=== PATIENT | male | born 1930 | race Caucasian/White ===

== ENCOUNTER 2016-09-21 02:05 | Emergency (ER) | payer MEDICARE, OTHER ==
[2016-09-21 04:11] LABS: Hematocrit 43 % (42-52); Hemoglobin 14.3 g/dl (14.0-18.0); Mean Corpuscular HGB Conc 33 g/dl (31-36); Mean Corpuscular Hemoglobin 31 pg (27-31); Mean Corpuscular Volume 94 fL (80-94); Mean Platelet Volume 11 um3 (7.4-10.4); Red Blood Count 4.57 10^6/ul (4.0-5.4); Red Cell Distribution Width 13 % (10.5-15); White Blood Count 9.1 10^3/ul (3.5-10.8)
[2016-09-21] MEDS ORDERED: oxyCODONE/Acetamin 5/325 MG* TAB PO ONE (04:26)
[2016-09-21] MEDS ORDERED: Lisinopril TAB* 10 MG PO ONE (04:27)
[2016-09-21 04:31] LABS: Albumin 4.1 g/dL (3.2-5.2); BUN/Creatinine Ratio 23.7 (8-20); Calcium 9.4 mg/dL (8.6-10.3); EGFR African American 62.8 (>60); EGFR Non-African American 48.8 (>60); Globulin 2.4 g/dL (2-4); Potassium 4.6 mmol/L (3.5-5.0); Total Bilirubin 1.2 mg/dL (0.2-1.0); Total Protein 6.5 g/dL (6.4-8.9)
[2016-09-21 05:20] VITALS: BP 191/83
--- NOTE | 2016-09-21 05:46 | ED ---
Gabriel Guaman Aidan, scribed for Renuka Kulkarni MD on 09/21/16 at 0413 . Head Injury - HPI Summary HPI Summary: 85 y/o male presents to the ED with a complaint of acute, constant, moderate (7/ 10), left jaw/cheek pain and inflammation with active bleeding that resulted from him falling out of bed and onto his face just CHECKER IN. Associated symptoms include multiple chipped and loose teeth. Pt denies any JACOBSON or LOC. He took ASA today. Tetanus is UTD. Hx of HTN. - History Of Current Complaint Chief Complaint: EDFacialInjury Stated Complaint: FACE LAC Time Seen by Provider: 09/21/16 02:42 Hx Obtained From: Patient Mechanism Of Injury: Fall From Height Of: - Pt fell out of bed Onset/Duration: Started Hours Ago, Traumatic, Still Present Onset of Pain: Immediate Severity Currently: Moderate Severity Initially: Moderate Pain Intensity: 7 Pain Scale Used: 0-10 Numeric Location of Head Injury: Frontal Location: Discrete At: - left side of the jaw/mouth Character: Sharp Aggravating Factor(s): Other: - unknown Alleviating Factor(s): Other: - unknown Associated Signs And Symptoms: Swelling, Other: - jaw pain, loose and chipped teeth - Risk Factors SDH Risk Factor: Male, Recent Trauma - Allergies/Home Medications Allergies/Adverse Reactions: Allergies Allergy/AdvReac Type Severity Reaction Status Date / Time Codeine Allergy Unknown Verified 09/21/16 02:39 Reaction Details Ibuprofen Allergy Unknown Verified 09/21/16 02:39 Reaction Details Penicillins Allergy Unknown Verified 09/21/16 02:39 Reaction Details PMH/Surg Hx/FS Hx/Imm Hx Endocrine/Hematology History: Denies: Hx Anticoagulant Therapy, Hx Diabetes, Hx Thyroid Disease Cardiovascular History: Reports: Hx Hypertension Denies: Hx Pacemaker/ICD Respiratory History: Denies: Hx Asthma, Hx Chronic Obstructive Pulmonary Disease (COPD) History: Denies: Hx Renal Disease Neurological History: Denies: Hx Dementia, Hx Seizures Psychiatric History: Denies: Hx Substance Abuse - Surgical History Surgery Procedure, Year, and Place: MESH PLACED OVER ABD/APPY Infectious Disease History: No Infectious Disease History: Reports: Hx Hepatitis Denies: Hx Human Immunodeficiency Virus (HIV), Traveled Outside the [place] in Last 30 Days - Family History Known Family History: Positive: Hypertension - Social History Occupation: Retired Lives: Alone Alcohol Use: None Substance Use Type: Reports: None Smoking Status (MU): Never Smoked Tobacco Review of Systems Constitutional: Negative Eyes: Negative Positive: Dental Pain - multiple chipped and loose teeth Cardiovascular: Negative Respiratory: Negative Gastrointestinal: Negative Genitourinary: Negative Positive: Arthralgia - jaw pain with active bleeding. Negative: Myalgia, Decreased ROM, Edema Skin: Negative Neurological: Negative Psychological: Normal All Other Systems Reviewed And Are Negative: Yes Physical Exam - Summary Physical Exam Summary: General: Well appearing, no pain distress Skin: Warm, Skin Color Reflects Adequate Perfusion, Dry; POSITIVE: Laceration over the left side of the upper lip 2cm and one on the chin that was 2 by 2cm, laceration on the upper inner lip that is 2cm Eyes: EOMI, TIERRA ENT: Pharynx normal, TMs normal; POSITIVE: swelling to the left side of the face , teeth 8, 9, and 10 are cracked or loose Neck: Supple, nontender Respiratory: CTA, breath sounds present, no rhonchi, no wheezes, no rales Cardiovascular: RRR, no murmur, no rub, no gallop Abdomen: Soft, nontender, Non-distended, no guarding, no rebound Bowel: Present Musculoskeletal: MICHOACANO, No edema Neuro: Sensory/motor intact, A&Ox3, CN intact 2-12 Psych: Affect/mood appropriate Triage Information Reviewed: Yes Vital Signs On Initial Exam: Initial Vitals Temp Pulse Resp BP Pulse Ox 99.3 F 83 18 206/111 97 09/21/16 02:11 09/21/16 02:11 09/21/16 02:11 09/21/16 02:11 09/21/16 02:11 Vital Signs Reviewed: Yes - Butch Coma Scale Coma Scale Total: 15 Procedures - Laceration/Wound Repair 1 Location: mouth Description: Stellate Anesthesia: 1.0%, Lido - 5cc's on each side Length, Depth and Shape: External stellate laceration over the left side of the upper lip 2cm and one on the chin that was 2 by 2cm Irrigated w/ Saline (ccs): 5 - on each side Laceration/Wound Explored: clean, no foreign body removed Closure: Single Layer - 5 6O sutures placed in both external lacerations, I chose not to repair the inner mouth laceration Number of Sutures: 5 Layer Closure?: Yes Diagnostics - Vital Signs Vital Signs Temp Pulse Resp BP Pulse Ox 09/21/16 02:11 99.3 F 83 18 206/111 97 - Laboratory Lab Results: Lab Results 09/21/16 09/21/16 Range/Units 04:00 04:00 WBC 9.1 (3.5-10.8) 10^3/ul RBC 4.57 (4.0-5.4) 10^6/ul Hgb 14.3 (14.0-18.0) g/dl Hct 43 (42-52) % MCV 94 (80-94) fL MCH 31 (27-31) pg MCHC 33 (31-36) g/dl RDW 13 (10.5-15) % Plt Count 132 L (150-450) 10^3/ul MPV 11 H (7.4-10.4) um3 Neut % (Auto) 59.3 (38-83) % Lymph % (Auto) 27.1 (25-47) % [place] % (Auto) 11.0 H (1-9) % Eos % (Auto) 1.6 (0-6) % Baso % (Auto) 1.0 (0-2) % Absolute Neuts (auto) 5.4 (1.5-7.7) 10^3/ul Absolute Lymphs (auto) 2.5 (1.0-4.8) 10^3/ul Absolute Monos (auto) 1.0 H (0-0.8) 10^3/ul Absolute Eos (auto) 0.1 (0-0.6) 10^3/ul Absolute Basos (auto) 0.1 (0-0.2) 10^3/ul Absolute Nucleated RBC 0 10^3/ul Nucleated RBC % 0.1 Sodium 139 (133-145) mmol/L Potassium 4.6 (3.5-5.0) mmol/L Chloride 108 (101-111) mmol/L Carbon Dioxide 25 (22-32) mmol/L Anion Gap 6 (2-11) mmol/L BUN 33 H (6-24) mg/dL Creatinine 1.39 H (0.67-1.17) mg/dL Est GFR ( Amer) 62.8 (>60) Est GFR (Non-Af Amer) 48.8 (>60) BUN/Creatinine Ratio 23.7 H (8-20) Glucose 129 H (70-100) mg/dL Calcium 9.4 (8.6-10.3) mg/dL Total Bilirubin 1.20 H (0.2-1.0) mg/dL AST 31 (13-39) U/L ALT 27 (7-52) U/L Alkaline Phosphatase 51 (34-104) U/L Total Protein 6.5 (6.4-8.9) g/dL Albumin 4.1 (3.2-5.2) g/dL Globulin 2.4 (2-4) g/dL Albumin/Globulin Ratio 1.7 (1-3) Result Diagrams: 09/21/16 04:00 09/21/16 04:00 Lab Statement: Any lab studies that have been ordered have been reviewed, and results considered in the medical decision making process. - CT MAXILLOFACIAL CT CT Interpretation: Positive (See Comments) - FINDINGS: There is flattening and irregularity of the nasal bones at the bridge of the nose. This likely represents fractures. Periapical lucencies around the bilateral maxillary central incisors and left lateral maxillary incisor. Not certain if this is due to dental disease or trauma. Check for teeth movement in this area. Correlate with trauma/tenderness in this area. No other orbital or facial fracture. Globes and orbits intact. Hematoma left cheek/jaw soft tissues. CT Interpretation Completed By: Radiologist - phone representative CERVICAL SPINE CT CT Interpretation: No Acute Changes - FINDINGS: Advanced degenerative changes. Negative for cervical fracture or acute cervical malalignment. CT Interpretation Completed By: Radiologist - phone representative BRAIN CT CT Interpretation: No Acute Changes - IMPRESSION: No mass effect or intracranial hemorrhage CT Interpretation Completed By: Radiologist - phone representative - EKG EKG 0246 Cardiac Rate: NL - 75 BPM EKG Rhythm: Sinus Rhythm EKG Interpretation: NORMAL SINUS RHYTHM Head Injury Course/Dx Course Of Treatment: 85 yo male who fell out of bed sustaining 2 stellate facial lacerations that were repaired, one upper inner lip lac that was not repaired, multiple left upper tooth injuries and a left sided facial hematoma, his ct's did not show facial fractures, there was a question of a nasal fracture but the pt does not have nasal pain. Pt sent home on clinda (due to the worry of infection with devitalized tissue from the blunt force of the fall) , peridex and pain meds - Diagnoses Provider Diagnoses: Face lacerations, Facial trauma Discharge - Discharge Plan Condition: Stable Disposition: HOME Discharge Disposition Comment: Please follow up with ypur primary care provider within 3 days. Prescriptions: Chlorhexidine MOUTHWASH 0.12%* [Peridex Mouth Wash 0.12%*] 15 ml .SEE ORDER BID #1 bottle Clindamycin CAP* [Cleocin 150 MG CAP*] 150 mg PO QID #28 cap oxyCODONE/Acetamin 5/325 MG* [Percocet 5/325 TAB*] 1 tab PO Q8H PRN #10 tab MDD 3 PRN Reason: Pain Patient Education Materials: Laceration (ED) Referrals: No Primary Care Phys,NOPCP [Primary Care Provider] - The documentation as recorded by the Gabriel dave Aidan accurately reflects the service I personally performed and the decisions made by me, Renuka Kulkarni MD.
--- NOTE | 2016-09-21 13:28 | RAD ---
indication: Left face swelling and bleeding after a fall from bed. COMPARISON: None A CT scan of the brain, maxillofacial bones and c-spine was performed without intravenous contrast enhancement. Contiguous axial sections were obtained from the lung apices through the vertex. BRAIN: The ventricles, cisterns and sulci exhibit symmetrical and age-appropriate involutional changes. No significant focal abnormality or mass effect is seen. There is periventricular and subcortical white matter hypoattenuation most consistent with chronic microvascular disease. The chapman-white differentiation is adequately maintained. There is no evidence for intracranial hemorrhage. No significant bony abnormality is present. The mastoid air cells are appropriately aerated. The visualized paranasal sinuses are clear. FACIAL BONES: There is soft tissue swelling overlying the left mandible, maxilla and nose. No drainable fluid collection is seen. Bones: Depicted best on the axial plane images (image 58 of 81) there is flattening of the left of midline anterior nasal bone. Depicted on the sagittal plane images there is cortical irregularity of the nasal bone (image 44 and 45). The orbital rim is intact. The zygomatic arch is intact. The pterygoid plates are intact Surrounding the left frontal teeth (axial image 38 and sagittal image 52) there is periapical lucency more posteriorly streak artifact is created by extensive dental amalgam. Orbits: The globes are round. The optic nerves are symmetric. The extraocular musculature is normal. There is no post septal or intraconal inflammatory change. There is no retrobulbar hematoma. Paranasal Sinuses: The paranasal sinuses are clear. C-SPINE: Multilevel degenerative changes of the cervical spine include loss of intervertebral disc height, endplate sclerosis, subchondral lucencies and exuberant marginal osteophyte formation. The vertebral bodies and facet joints are anatomically aligned. There is no widening of the atlantodental interval. There is no precervical soft tissue swelling. There is no hyperdense material in the cervical canal to indicate hemorrhage. The visualized musculature and soft tissues are normal. There is left sided cervical chain lymphadenopathy with lymph nodes measuring up to 1 cm in short axis diameter and exhibiting maximum diameter measurement of 1.4 cm at the level 4 region (coronal image 20 of 90 for example). There is coarse atherosclerotic disease at the bilateral carotid bulbs. The visualized portion of the lung apices are clear. IMPRESSION: 1. No calvarial fracture or acute intracranial hemorrhage. 2. There is likely a slightly depressed nasal bone fracture. 3. Periapical lucencies surrounding the left front teeth could be due to the patient's traumatic injury or due to dental disease. Please correlate to loose teeth on physical examination. 4. Subcutaneous infiltration and soft tissue swelling overlying the left mandible and maxilla. 5. Advanced degenerative changes of the cervical spine without definite fracture or dislocation. 6. Left sided cervical chain lymphadenopathy of unknown chronicity without a clear etiology.
== END 2016-09-21 05:44 | disposition home or self-care (01) ==
LOC: ED 02:05
DX: S01.511A Laceration without foreign body of lip, initial encounter (principal); S01.81XA Laceration without foreign body of other part of head, initial encounter; S02.5XXA Fracture of tooth (traumatic), initial encounter for closed fracture; W06.XXXA Fall from bed, initial encounter; Y93.9 Activity, unspecified; Y92.9 Unspecified place or not applicable; I10 Essential (primary) hypertension; Z88.6 Allergy status to analgesic agent; Z88.5 Allergy status to narcotic agent; Z88.0 Allergy status to penicillin
CPT/HCPCS: 12011; 36415; 70450; 70486; 72125; 80053; 85025; 93005; 99283; A9270-GY

== ENCOUNTER → 2016-09-25 09:43 | Emergency (ER) | payer MEDICARE, OTHER ==
[2016-09-25 11:33] VITALS: BP 111/59
--- NOTE | 2016-09-25 13:45 | ED ---
Psychiatric Complaint - HPI Summary HPI Summary: Pt here w/ running low on prozac and lives in [place]. Has been going back q 2-3 months since staying here to help a friend w/ cancer but since he fell last week , he is unable to drive back down. Requesting refill until he can get back home or establish w/ someone here. Missed past 3-4 days of prozac as he wasn't sure if he could mix this with oxycodone which he recently received for fall w/ facial pain and swelling. He also notes his dental pain was worse this morning. Does not want more oxycodone - makes him feel weird. Allergic to codeine and cannot take tramadol w / prozac. Has not seen dentist for pain as this just became noticeable this morning. [facility] [place] [facility] as this is where his friend goes for cancer tx's. Denies withdrawal sx. Has enough lorazepam - does not feel he needs more. - History Of Current Complaint Chief Complaint: EDFacialInjury Time Seen by Provider: 09/25/16 13:17 Hx Obtained From: Patient - Allergies/Home Medications Allergies/Adverse Reactions: Allergies Allergy/AdvReac Type Severity Reaction Status Date / Time Codeine Allergy Unknown Verified 09/21/16 02:39 Reaction Details Ibuprofen Allergy Unknown Verified 09/21/16 02:39 Reaction Details Penicillins Allergy Unknown Verified 09/21/16 02:39 Reaction Details PMH/Surg Hx/FS Hx/Imm Hx Previously Healthy: Yes Endocrine/Hematology History: Denies: Hx Anticoagulant Therapy, Hx Diabetes, Hx Thyroid Disease Cardiovascular History: Reports: Hx Hypertension Denies: Hx Pacemaker/ICD Respiratory History: Denies: Hx Asthma, Hx Chronic Obstructive Pulmonary Disease (COPD) History: Denies: Hx Renal Disease Neurological History: Denies: Hx Dementia, Hx Seizures Psychiatric History: Reports: Hx Anxiety - prozac, lorazepam Denies: Hx Substance Abuse - Surgical History Surgery Procedure, Year, and Place: MESH PLACED OVER ABD/APPY Infectious Disease History: No Infectious Disease History: Reports: Hx Hepatitis Denies: Hx Human Immunodeficiency Virus (HIV), Traveled Outside the [place] in Last 30 Days - Family History Known Family History: Positive: Hypertension - Social History Lives: With Family - w/ a friend at this time Alcohol Use: None Substance Use Type: Reports: None Smoking Status (MU): Never Smoked Tobacco Review of Systems Constitutional: Negative Negative: Fever, Chills, Fatigue Eyes: Negative Negative: Photophobia, Blurred Vision, Diplopia Positive: Dental Pain - see HPI Negative: Chest Pain Negative: Shortness Of Breath Negative: Vomiting, Nausea Positive: no symptoms reported Skin: Other - see HPI Negative: Weakness, Paresthesia, Numbness, Syncope, Slurred Speech Psychological: Other - see HPI - no SI/HI All Other Systems Reviewed And Are Negative: Yes Physical Exam Triage Information Reviewed: Yes Vital Signs On Initial Exam: Initial Vitals Temp Pulse Resp BP Pulse Ox 98.5 F 69 20 100/50 98 09/25/16 09:49 09/25/16 09:49 09/25/16 09:49 09/25/16 09:49 09/25/16 09:49 Vital Signs Reviewed: Yes Appearance: Positive: Well-Nourished - pt has Lt lower cheek edema w/ gross purpuric ecchymosis over Lt cheek, neck and into upper chest; pleasant, speaking well and appears comfortable Skin: Positive: Warm, Dry Head/Face: Positive: Other - see above Eyes: Positive: EOMI, TIERRA, Conjunctiva Clear ENT: Positive: Hearing grossly normal Dental: Positive: Other - gingival edema about the Lt maxilla - no gabby dental fx observed, no bleeding Neck: Positive: Supple, Nontender Respiratory/Lung Sounds: Positive: Breath Sounds Present Cardiovascular: Positive: Normal Musculoskeletal: Positive: Normal, Strength/ROM Intact Neurological: Positive: Normal, Sensory/Motor Intact, Alert, Oriented to Person Place, Time, CN Intact II-III Psychiatric: Positive: Normal - [place] Coma Scale Coma Scale Total: 15 Diagnostics - Vital Signs Vital Signs Temp Pulse Resp BP Pulse Ox 09/25/16 11:26 98.7 F 62 16 111/59 96 09/25/16 09:49 98.5 F 69 20 100/50 98 - Laboratory Lab Statement: Any lab studies that have been ordered have been reviewed, and results considered in the medical decision making process. Course/Dx - Course Course Of Treatment: Discussed w/ pt he may have a short course of SSRI to bridge him until he a) returns home for f/u w/ PCP or b) establishes w/ PCP here. Pt agrees w/ plan. Also impressed the importance of follow-up with a dentist d/t trauma and sx. He also agrees to investigate his options here. - Differential Dx/Clinical Impression Provider Diagnosis: Dental trauma, Medication refill Discharge - Discharge Plan Condition: Stable Disposition: HOME Prescriptions: FLUoxetine CAP* [PROzac CAP*] 20 mg PO DAILY #30 cap Patient Education Materials: Anxiety (ED), Facial Contusion (ED), Acute Dental Trauma (ED) Referrals: [facility] [place] [facility] [Outside] Jose Wells MD [Doctor of Dental Medicine] - No Primary Care Phys,NOPCP [Primary Care Provider] - Additional Instructions: It is advised that you follow-up with your PCP back home in [place] or establish PCP here. You may contact the PCP referral line or try the [place] clinic in [place]: . It is also recommended that you contact an oral surgeon as you have excessive swelling to your Left cheek and now pain w/ gingival swelling. Dr. Wells is a local oral surgeon who may be able to address this issue for you. Please call to schedule an appointment. You have declined more oxycodone for pain relief and have an allergy to codeine. You cannot take tramadol due to interactions with other medications. Therefore, it is advised that you acetaminophen 650mg every 6 hours for pain. You may also apply ice alternating with heat to affected area on face/cheek. *If you develop fever, chills, trouble breathing or swallowing, return to ED *If you develop thoughts of harming yourself or others, return to ED or call 911
== END | disposition home or self-care (01) ==
LOC: ED 09:43
DX: K08.89 Other specified disorders of teeth and supporting structures (principal); Z76.0 Encounter for issue of repeat prescription
CPT/HCPCS: 99282

== ENCOUNTER 2018-12-16 01:12 | Inpatient (IN) | payer OTHER ==
[2018-12-16] MEDS ORDERED: Ondansetron INJ* 2 MG/ML VIAL IV ONE (01:23)
[2018-12-16] MEDS ORDERED: Morphine 4 MG/ML VIAL (1 ml) 4 MG/ML VIAL IV ONE (01:50)
[2018-12-16 01:52] LABS: ABS Basophils 0.1 10^3/ul (0-0.2); ABS Lymphocytes 3.2 10^3/ul (1.0-4.8); ABS Monocytes 1.4 10^3/ul (0-0.8); Eosinophil % 0.3 %; Hematocrit 43 % (42-52); Hemoglobin 14.5 g/dL (14.0-18.0); Lymphocyte % 27.6 %; Mean Corpuscular HGB Conc 34 g/dL (31-36); Mean Corpuscular Hemoglobin 32 pg (27-31); Mean Corpuscular Volume 94 fL (80-94); Mean Platelet Volume 10.9 fL (7.4-10.4); Nucleated Red Blood Cells % 0.1; Platelet Count 204 10^3/uL (150-450); Red Blood Count 4.52 10^6 /uL (4.18-5.48); Red Cell Distribution Width 13 % (10-15); White Blood Count 11.7 10^3/uL (3.5-10.8)
--- NOTE | 2018-12-16 01:55 | ED ---
Abdominal Pain/Male - HPI Summary HPI Summary: This patient is an 88 year old M arriving via ambulance to [facility] with a chief complaint of suprapubic abdominal pain since 12/10/18. Patient states that symptoms had improved initially but seemed to worsen this PM on 12/16/11. Patient reports nausea, dizziness and abdominal pain. Patient denies diarrhea. Patients last BM in AM on 12/15/18. The patient rates the pain 4/10 in severity per oncology account specialist. Pain is characterized as stomach pain. Patient reports PMHx of HTN, HLD, and urinary retention. Surgical history of appendectomy - History of Current Complaint Chief Complaint: EDAbdPain Stated Complaint: ABD PAIN PER EMS Time Seen by Provider: 12/16/18 01:22 Hx Obtained From: Patient Onset/Duration: Lasting Days - 12/10/18, Still Present Timing: Constant Severity Currently: Moderate Pain Intensity: 4 Pain Scale Used: 0-10 Numeric Location: Suprapubic Radiates: No Character: Other: - "stomach pain" Aggravating Factor(s): Nothing Alleviating Factor(s): Nothing Associated Signs And Symptoms: Positive: Dizzy, Nausea. Negative: Diarrhea - Allergies/Home Medications Allergies/Adverse Reactions: Allergies Allergy/AdvReac Type Severity Reaction Status Date / Time codeine Allergy Unknown Verified 12/16/18 02:29 Reaction Details ibuprofen Allergy Unknown Verified 12/16/18 02:29 Reaction Details Penicillins Allergy Unknown Verified 12/16/18 02:29 Reaction Details Home Medications: Home Medications Atorvastatin* 40 mg PO DAILY 12/16/18 [History Confirmed 12/16/18] Finasteride 5 mg PO DAILY 12/16/18 [History Confirmed 12/16/18] Lisinopril 40 mg PO DAILY 12/16/18 [History Confirmed 12/16/18] Lorazepam 1 mg PO BEDTIME 12/16/18 [History Confirmed 12/16/18] Oxybutynin 5 mg PO DAILY 12/16/18 [History Confirmed 12/16/18] Tamsulosin HCl 0.4 mg PO DAILY 12/16/18 [History Confirmed 12/16/18] amLODIPine TAB* 10 mg PO DAILY 12/16/18 [History Confirmed 12/16/18] PMH/Surg Hx/FS Hx/Imm Hx Endocrine/Hematology History: Denies: Hx Anticoagulant Therapy, Hx Diabetes, Hx Thyroid Disease Cardiovascular History: Reports: Hx Hypercholesterolemia, Hx Hypertension Denies: Hx Pacemaker/ICD Respiratory History: Denies: Hx Asthma, Hx Chronic Obstructive Pulmonary Disease (COPD) History: Denies: Hx Renal Disease Neurological History: Denies: Hx Dementia, Hx Seizures Psychiatric History: Reports: Hx Anxiety - prozac, lorazepam Denies: Hx Substance Abuse - Surgical History Surgery Procedure, Year, and Place: MESH PLACED OVER ABD/APPY Infectious Disease History: No Infectious Disease History: Reports: Hx Hepatitis Denies: Hx Human Immunodeficiency Virus (HIV), Traveled Outside the [place] in Last 30 Days - Family History Known Family History: Positive: Hypertension - Social History Alcohol Use: None Substance Use Type: Reports: None Hx Tobacco Use: No Smoking Status (MU): Never Smoked Tobacco Review of Systems Positive: Abdominal Pain, Nausea. Negative: Diarrhea Neurological: Other - dizziness All Other Systems Reviewed And Are Negative: Yes Physical Exam - Summary Physical Exam Summary: Constitutional: Well-developed, Well-nourished, Alert. (-) Distressed Skin: Warm, Dry, ecchymosis, left chest wall pacemaker site with clean dressing HENT: Normocephalic; Atraumatic Eyes: Conjunctiva normal Neck: Musculoskeletal ROM normal neck. (-) JVD, (-) Stridor, (-) Nuchal rigidity Cardio: Rhythm regular, rate normal, Heart sounds normal; Intact distal pulses; Radial pulses are 2+ and symmetric. (-) Murmur Pulmonary/Chest wall: Effort normal. (-) Respiratory distress, (-) Wheezes, (-) Rales Abd: Soft, Mild tenderness lower quadrants and suprapubic , mild distension, (- ) Guarding, (-) Rebound Musculoskeletal: (-) Edema Lymph: (-) Cervical adenopathy Neuro: Alert, Oriented x3 Psych: Mood and affect Normal Triage Information Reviewed: Yes Vital Signs On Initial Exam: Initial Vitals Temp Pulse Resp BP Pulse Ox 98.9 F 82 20 184/83 96 12/16/18 01:15 12/16/18 01:15 12/16/18 01:15 12/16/18 01:15 12/16/18 01:15 Vital Signs Reviewed: Yes Diagnostics - Vital Signs Vital Signs Temp Pulse Resp BP Pulse Ox 12/16/18 01:20 80 23 97 12/16/18 01:15 98.9 F 82 20 184/83 96 - Laboratory Lab Results: Lab Results 12/16/18 Range/Units 01:40 WBC 11.7 H (3.5-10.8) 10^3/uL RBC 4.52 (4.18-5.48) 10^6 /uL Hgb 14.5 (14.0-18.0) g/dL Hct 43 (42-52) % MCV 94 (80-94) fL MCH 32 H (27-31) pg MCHC 34 (31-36) g/dL RDW 13 (10-15) % Plt Count 204 (150-450) 10^3/uL MPV 10.9 H (7.4-10.4) fL Neut % (Auto) 59.5 % Lymph % (Auto) 27.6 % [place] % (Auto) 11.8 % Eos % (Auto) 0.3 % Baso % (Auto) 0.8 % Absolute Neuts (auto) 7.0 (1.5-7.7) 10^3/ul Absolute Lymphs (auto) 3.2 (1.0-4.8) 10^3/ul Absolute Monos (auto) 1.4 H (0-0.8) 10^3/ul Absolute Eos (auto) 0.0 (0-0.6) 10^3/ul Absolute Basos (auto) 0.1 (0-0.2) 10^3/ul Absolute Nucleated RBC 0.0 10^3/ul Nucleated RBC % 0.1 Result Diagrams: 12/16/18 01:40 12/16/18 01:40 Lab Statement: Any lab studies that have been ordered have been reviewed, and results considered in the medical decision making process. - Radiology Chest Xray Radiology Interpretation Completed By: ED Physician Summary of Radiographic Findings: CXR reveals, per ED Physician, no acute process pacemaker noted. Pending offical report. - CT Abd/Pel CT Scan CT Interpretation Completed By: Radiologist Summary of CT Findings: Abd/Pel reveals, per radiologist, IMPRESSION: 1. High- grade small bowel obstruction. Transition is in the right flank. Bowel distal to the obstruction is collapsed. No bowel wall thickening or pneumatosis. 2. Extensive periaortic and pericaval adenopathy. Enlarged mesenteric lymph nodes. Prominent lymph nodes in the inguinal region. Suggest obtaining a CT scan of the chest with contrast. Consider PET CT study followed by lymph node biopsy. ED Physician has reviewed this report. - EKG 0131 Cardiac Rate: Other Rate - 80 bpm Summary of EKG Findings: Ventricular paced rate at 80 bpm. Re-Evaluation - Re-Evaluation First Eval Re-Evaluation Time: 04:55 Change: Unchanged Comment: CT shows small bowel obstruction. Dr. Hummel placed NG tube and called Dr. Mishra for surgery. Second Eval Re-Evaluation Time: 05:29 Change: Improved Comment: Patient had 1 liter out of NG Tube Abdominal Pain Male Course/Dx - Course Course Of Treatment: 88-year-old male with a history of recent pacemaker placement for bradycardia presents with abdominal pain and vomiting. Physical examination elderly male no acute distress. Lower quadrant abdominal tenderness without guarding. Concern for bowel obstruction given vomiting although did have bowel movement this morning. We'll check a CT with PO contrast if tolerated, labs to assess for underlying infection. Of note patient does report having an appendectomy over 50 years ago - Diagnoses Provider Diagnoses: Small bowel obstruction - Provider Notifications Discussed Care Of Patient With: Oneil Mishra - Surgery Time Discussed With Above Provider: 05:10 Instructed by Provider To: Other - Dr. Mishra recommends admission to hospital and will see patient in the morning. 0520 Dr. Nadia Henao accepts patient for admission. Discharge ED - Sign-Out/Discharge Documenting (check all that apply): Patient Departure - admit Patient Received Moderate/Deep Sedation with Procedure: No - Discharge Plan Condition: Stable Disposition: ADMITTED TO [facility] - Billing Disposition and Condition Condition: STABLE Disposition: Admitted to [facility] - Attestation Statements Document Initiated by Scribe: Yes Documenting Scribe: Carly Becerra Provider For Whom Madelin is Documenting (Include Credential): Jaiden Hummel MD Scribe Attestation: Carly Guaman, scribed for Jaiden Hummel MD on 12/16 at 0633. Scribe Documentation Reviewed: Yes Provider Attestation: The documentation as recorded by the scribe, Carly Becerra accurately reflects the service I personally performed and the decisions made by Jaiden cueva MD Status of Scribe Document: Viewed
[2018-12-16 02:09] LABS: ALT 47 U/L (7-52); AST 58 U/L (13-39); Albumin 4.2 g/dL (3.2-5.2); Albumin/Globulin Ratio 1.6 (1-3); Alkaline Phosphatase 150 U/L (34-104); Anion Gap 11 mmol/L (2-11); BUN/Creatinine Ratio 27.3 (8-20); Blood Urea Nitrogen 36 mg/dL (6-24); CO2 Carbon Dioxide 24 mmol/L (22-32); Calcium 9.9 mg/dL (8.6-10.3); Chloride 99 mmol/L (101-111); EGFR African American 62.2 (>60); EGFR Non-African American 51.4 (>60); Globulin 2.7 g/dL (2-4); Glucose 180 mg/dL (70-100); Potassium 4.4 mmol/L (3.5-5.0); Sodium 134 mmol/L (135-145); Total Protein 6.9 g/dL (6.4-8.9)
[2018-12-16 02:13] LABS: Troponin I 0.04 ng/mL (<0.04)
[2018-12-16] MEDS ORDERED: Iodixanol* (CONTRAST) 320 MG/ML 100 ML SDV IV ONE (02:47)
[2018-12-16] MEDS ORDERED: NS 0.9% 1000 ML** 1,000 ML IV ONE (03:04)
[2018-12-16] MEDS ORDERED: Morphine INJ* 2 MG/ML 1 ML SYRINGE (TWO MG - NEW SYRINGE VERSION) IV PRN (05:58)
[2018-12-16] MEDS ORDERED: Lorazepam PYXIS KEY PRN (06:06)
[2018-12-16] MEDS ORDERED: hydrALAZINE IV* 20 MG/ML VIAL IV SLOW PU PRN (06:06)
[2018-12-16 06:35] LABS: Urine Appearance Clear; Urine Bacteria Absent (Absent); Urine Bilirubin Negative (Negative); Urine Blood 2+ (Negative); Urine Color Yellow; Urine Glucose Negative (Negative); Urine Ketones Trace (Negative); Urine Nitrite Negative (Negative); Urine Protein Negative (Negative); Urine Red Blood Cell 3+(>10/hpf) (Absent); Urine Specific Gravity > 1.060 (1.010-1.030); Urine Urobilinogen Negative (Negative); Urine White Blood Cell Absent (Absent)
[2018-12-16] MEDS ORDERED: D5W 1/2 NS 1000 ML BAG* 1,000 ML IV SCH (07:00)
[2018-12-16 08:23] LABS: Hematocrit 38 % (42-52); Hemoglobin 12.9 g/dL (14.0-18.0); Mean Corpuscular HGB Conc 34 g/dL (31-36); Mean Corpuscular Hemoglobin 32 pg (27-31); Mean Corpuscular Volume 94 fL (80-94); Mean Platelet Volume 10.4 fL (7.4-10.4); Platelet Count 196 10^3/uL (150-450); Red Blood Count 4.01 10^6 /uL (4.18-5.48); Red Cell Distribution Width 13 % (10-15); White Blood Count 10.7 10^3/uL (3.5-10.8)
[2018-12-16 08:41] LABS: BUN/Creatinine Ratio 29.8 (8-20); Calcium 9.2 mg/dL (8.6-10.3); EGFR African American 66.9 (>60); EGFR Non-African American 55.3 (>60); Potassium 4.6 mmol/L (3.5-5.0)
[2018-12-16 08:43] LABS: Troponin I 0.03 ng/mL (<0.04)
--- NOTE | 2018-12-16 10:26 | PN ---
Subjective Date of Service: 12/16/18 Interval History: 88 y/o M with h/o CAD(s.p PCI) with chronic diastolic HF, Complete heart Block( on pacemaker),HTN, hyperlipidemia, elevated TSH, Anxiety presented with abdominal pain and nausea. Had BM yesterday. FOund to have High grade SBO with Abdominal lymphadenopathy. No any complain at present. NPO. NG tube removed by patient accidently. NO bm today and no any flatus. VSS Objective Active Medications: Hydralazine HCl (Apresoline Iv*) 5 mg IV SLOW PU Q6H PRN PRN Reason: SPB > 180 Dextrose/Sodium Chloride (D5w 1/2 Ns 1000 Ml Bag*) 1,000 mls @ 100 mls/hr IV PER RATE VANDANA Last Admin: 12/16/18 09:28 Dose: 100 mls/hr Lorazepam (Ativan Inj*) 1 mg IV PUSH Q12H PRN PRN Reason: ANXIETY Miscellaneous (Ativan Pyxis Cash) 1 ea N/A .ATIVAN IV CASH PRN PRN Reason: PYXIS CASH Morphine Sulfate (Morphine Inj (Syringe))*) 4 mg IV Q4H PRN PRN Reason: Pain - Mild to Moderate Ondansetron HCl (Zofran Inj*) 4 mg IV Q4H PRN PRN Reason: NAUSEA/VOMITING Vital Signs - 8 hr 12/16/18 12/16/18 12/16/18 02:49 03:00 03:53 Temperature Pulse Rate 80 Respiratory 28 21 18 Rate Blood Pressure 139/64 121/59 (mmHg) O2 Sat by Pulse 94 Oximetry 12/16/18 12/16/18 12/16/18 04:00 04:19 04:50 Temperature Pulse Rate Respiratory 20 18 17 Rate Blood Pressure 133/65 124/69 (mmHg) O2 Sat by Pulse Oximetry 12/16/18 12/16/18 12/16/18 05:00 05:19 05:49 Temperature Pulse Rate 80 80 Respiratory 19 20 17 Rate Blood Pressure 143/70 134/63 (mmHg) O2 Sat by Pulse 96 95 Oximetry 12/16/18 12/16/18 12/16/18 06:00 06:19 06:20 Temperature 98.9 F Pulse Rate 80 79 80 Respiratory 22 19 Rate Blood Pressure 124/65 124/65 (mmHg) O2 Sat by Pulse 94 93 93 Oximetry 12/16/18 12/16/18 12/16/18 07:05 07:17 08:34 Temperature 97.9 F 97.9 F Pulse Rate 81 81 Respiratory 16 16 16 Rate Blood Pressure 130/55 130/55 (mmHg) O2 Sat by Pulse 93 93 Oximetry 12/16/18 09:50 Temperature Pulse Rate Respiratory 16 Rate Blood Pressure (mmHg) O2 Sat by Pulse Oximetry Oxygen Devices in Use Now: None Exam: Patient is lying on a bed with no any acute distress. HEENT: NOrmocephalic and atraumatic Lungs: clear Heart: S1/S2 heard with no any murmur. Abdomen: SOft and nondistended. Past surgical scar noted on RLQ. Mild tenderness around umbilicus with no rebound tenderness, guarding or rigidity. Extremity: NO swelling or cyanosis Neuro: Alert, conscious or oriented. Result Diagrams: 12/16/18 08:16 12/16/18 08:16 Additional Lab and Data: Lab Results 12/16/18 Range/Units 01:40 WBC 11.7 H (3.5-10.8) 10^3/uL RBC 4.52 (4.18-5.48) 10^6 /uL Hgb 14.5 (14.0-18.0) g/dL Hct 43 (42-52) % MCV 94 (80-94) fL MCH 32 H (27-31) pg MCHC 34 (31-36) g/dL RDW 13 (10-15) % Plt Count 204 (150-450) 10^3/uL MPV 10.9 H (7.4-10.4) fL Neut % (Auto) 59.5 % Lymph % (Auto) 27.6 % [place] % (Auto) 11.8 % Eos % (Auto) 0.3 % Baso % (Auto) 0.8 % Absolute Neuts (auto) 7.0 (1.5-7.7) 10^3/ul Absolute Lymphs (auto) 3.2 (1.0-4.8) 10^3/ul Absolute Monos (auto) 1.4 H (0-0.8) 10^3/ul Absolute Eos (auto) 0.0 (0-0.6) 10^3/ul Absolute Basos (auto) 0.1 (0-0.2) 10^3/ul Absolute Nucleated RBC 0.0 10^3/ul Nucleated RBC % 0.1 Assess/Plan/Problems-Billing Assessment: 88 y/o M with h/o CAD(s.p PCI) with chronic diastolic HF, Complete heart Block( on pacemaker),HTN, hyperlipidemia, elevated TSH, Anxiety presented with abdominal pain and nausea. Had BM yesterday. FOund to have High grade SBO with Abdominal lymphadenopathy. History of appendectomy on 1966. - Patient Problems (1) Small bowel obstruction Current Visit: Yes Status: Acute Code(s): K56.609 - UNSP INTESTNL OBST, UNSP TO PARTIAL VERSUS COMPLETE OBST SNOMED Code(s): 344558641 Comment: Came with abdominal pain and nausea. Found to have SBO with lymphadenopathy. transition point is right flank. may be due to adhesion 2/2 prior surgery or ileus( as he was recently hosptalized); concern is also for malignancy He also has elevated ALP whch may be cause of obstruction. Plan is to keep him NPO and give him IV fluids and observe adn get abdominal xray tomorrow. NG tube will be placed depending on if he have symptom or not; right now its okay to be off NG tube Surgery following. (2) Lymphadenopathy, abdominal Current Visit: Yes Status: Acute Code(s): R59.0 - LOCALIZED ENLARGED LYMPH NODES SNOMED Code(s): 735815525 Comment: Seen on CT. Could be due to any occult malignancy or inflammatory. Needs workup for malignancy with CT with contrast. As his creatinine is slightly elevated and also he had MADI on recent hospital stay on fani end packer, we will wait untill his creatinine comes to normal. (3) Hypertension Current Visit: Yes Status: Acute Code(s): I10 - ESSENTIAL (PRIMARY) HYPERTENSION SNOMED Code(s): 48839282 Comment: Oral med on hold; BP controlled IV hydralazine PRN (4) Hyperlipidemia Current Visit: Yes Status: Acute Code(s): E78.5 - HYPERLIPIDEMIA, UNSPECIFIED SNOMED Code(s): 76518678 Comment: was on atorvastatin On hold (5) Complete heart block Current Visit: Yes Status: Acute Code(s): I44.2 - ATRIOVENTRICULAR BLOCK, COMPLETE SNOMED Code(s): 57805031 Comment: was admitted on fani end packer and placed pacemaker and discharged on 12/14/2018. Heart rate is normal (6) Elevated TSH Current Visit: Yes Status: Acute Code(s): R79.89 - OTHER SPECIFIED ABNORMAL FINDINGS OF BLOOD CHEMISTRY SNOMED Code(s): 203182896 Comment: subclinical hypothyroidism diagnosed on fani end packer. will f/u in [place] clinic. (7) DVT prophylaxis Current Visit: Yes Status: Acute Code(s): Z29.9 - ENCOUNTER FOR PROPHYLACTIC MEASURES, UNSPECIFIED SNOMED Code(s): 315364105 Comment: SCD (8) Full code status Current Visit: Yes Status: Acute Code(s): Z78.9 - OTHER SPECIFIED HEALTH STATUS SNOMED Code(s): 125646953 Status and Disposition: Inpatient. Attending: Cristina Alvarado Attestation Documenting Resident: Bree He Supervising Physician: Cristina Alvarado Attestation: This service has been performed in part by a resident under the direction of a teaching physician.I, Cristina Alvarado, performed the service, or was physically present during the critical, or cash portions of the service, furnished by the resident. I participated in the management of the patient.
--- NOTE | 2018-12-16 10:41 | HP ---
HISTORY AND PHYSICAL: DATE OF ADMISSION: 12/16/18 PRIMARY CARE PHYSICIAN: Unknown. HEALTHCARE PROXY: The patient denies having one. CODE STATUS: Full. CHIEF COMPLAINT: One day of severe abdominal pain, nausea, and vomiting. HISTORY OF PRESENT ILLNESS: Mr. Uriostegui is an 88-year-old man with hypertension, BPH, panic attack disorder, and a very recent hospitalization for bradycardia, status post pacemaker, who is presenting with acute onset of abdominal pain associated with nausea and vomiting. He reports being in his usual state of health until approximately 10 days ago when he began feeling what he calls "vertigo," however, he describes that as a weakness or lightheadedness that was not present on lying down, but would come on anytime he stood up. He would need to hold on to something in order to not collapse. As this symptom was not going away, approximately 1 week ago, he presented to a [place] [facility] where he was found to be bradycardic to 30s. He also reports his oxygenation at that time was in the 50s, so he was sent to [facility]. He reports he was not given any diagnosis, however, he did have a pacemaker placed and was discharged to [facility] for rehab 1 day prior to presentation. He reports that upon arrival to [facility], he immediately "was not feeling well." However, he is not able to describe initially how he felt. Over the proceeding hours and especially this morning, he began experiencing a central abdominal pain associated with nausea. He does report dry heaving and also vomiting a small amount of mucus. He reports that at his time at [facility], he had a couple of formed bowel movements. Denies diarrhea. The bowel movements were soft and brown. Given the severity of his abdominal pain and associated nausea and vomiting, he decided to present to [facility]. He denies shortness of breath, chest pain. He reports a subjective fever and he reports he has been experiencing chills since his discharge. Of note, the patient also reports a weight loss of approximately 30 pounds over the last 2 to 3 years. In the emergency room, the patient underwent an abdominal CT, which was concerning for small bowel obstruction. A nasogastric tube was placed with approximately 1 L of fluid drained. Surgery was consulted and offered to see the patient in the morning and Medicine was consulted for admission. PAST MEDICAL HISTORY: 1. Hypertension. 2. BPH. 3. Panic attack disorder. 4. 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 5. Appendicitis with complicated bowel surgery in the , complicated by several days of ileus. HOME MEDICATIONS: 1. Aspirin, although the patient reports he was not discharged on this medication from [facility] yesterday. 2. Atorvastatin 40 mg daily. 3. Amlodipine 10 mg daily. 4. Lisinopril 40 mg daily. 5. Fluoxetine 20 mg daily. 6. Lorazepam 1 mg nightly. 7. Tamsulosin 0.4 mg daily. 8. Finasteride 5 mg daily. 9. Oxybutynin 5 mg daily. ALLERGIES: The patient reports PENICILLIN caused a rash as a child, CODEINE made him feel disconcerted and IBUPROFEN caused him to feel lightheaded and woozy. FAMILY HISTORY: The patient states his father when the patient was 12 years of age. He thinks he may have congestive heart failure. He reports his mother of unknown causes. SOCIAL HISTORY: The patient moved out from [place] a couple of years ago to live with a friend, who is in her 80s and undergoing treatment for lymphoma. He is a retired product safety professional. He is also a . He denies tobacco or recreational drugs and reports just a few glasses of wine per week. REVIEW OF SYSTEMS: A complete 10-point review of systems was performed and pertinent positives and negative are listed in his HPI. PHYSICAL EXAMINATION GENERAL: He is a tired-appearing, pleasant man, in no acute distress. VITAL SIGNS: Afebrile, heart rate 80s, blood pressure 124/65, respiratory rate 19, oxygen saturation 93% on room air. HEENT: With moist mucous membranes. Pupils equal and reactive to light. NECK: No JVD. Supple. LUNGS: Clear to auscultation bilaterally. HEART: Regular rate and rhythm. No murmurs, gallops, or rubs. ABDOMEN: Soft, mild tenderness to right lower quadrant. No guarding or rebound. No distention. Hypoactive bowel sounds. EXTREMITIES: Warm and well perfused. No evidence of edema. NEURO: A and O x3. DIAGNOSTIC STUDIES/LAB DATA: CBC notable for a WBC to 11.7 with normal hemoglobin. Sodium decreased to 134 with BUN/creatinine 36/1.32. This creatinine appears to be the patient's baseline. Total bilirubin 1.6. The patient previously had elevated bilirubin. Troponin 0.04. UA with trace ketones, 2+ blood and wbc's. Abdomen and pelvis CT with high-grade small bowel obstruction transitions in the right flank. Bowel distal to the obstruction is collapsed. No bowel wall thickening or pneumatosis. Extensive periaortic and paracaval adenopathy, enlarged mesenteric lymph nodes, prominent lymph nodes in inguinal region. Electrocardiogram V paced at 80. ASSESSMENT AND PLAN: Mr. Uriostegui is an 88-year-old man with hypertension, panic attack disorder, benign prostatic hypertrophy, and recent hospitalization for bradycardia and pacemaker placement, who is presenting with acute onset of abdominal pain with nausea and vomiting. He was found with CT concerning for small bowel obstruction. 1. Small bowel obstruction. Nasogastric tube is in place. He will remain n.p.o. Meds that can be converted to IV will be and he will be given morphine 4 mg every 4 hours as needed for pain. He has been placed on maintenance fluids and Surgery is aware and will see him in the morning. 2. Hypertension. We will hold the patient's home antihypertensives, he can have hydralazine IV as needed for systolic blood pressures over 180. 3. Panic attack disorder. The patient's home Ativan will be converted to IV. His selective serotonin reuptake inhibitors will need to be held. He reports experiencing withdrawal and anxiety in the past when this has been held, so we can give him Ativan q.12 as needed rather than nightly, which is how he normally takes it. 4. Bradycardia, status post pacemaker. Outside record requests have been put in for recent hospitalization at [facility]. 5. Mesenteric lymph nodes. The patient is aware these were seen on CT and that he likely will require further workup and that malignancy is on the differential. 6. Benign prostatic hypertrophy. Holding home tamsulosin and finasteride. 7. DVT prophylaxis. We will hold subcu heparin in case of surgery. SCDs have been placed. 8. Code status. The patient is full code. TIME SPENT: Approximately 60 minutes were spent on admission of this patient, more than half of which was spent at bedside for interview and exam. [id number]/[facility] #: [id number] LEXIE
--- NOTE | 2018-12-16 11:24 | CONS ---
CC: Primary Care Physician; [facility] * SURGICAL CONSULTATION REPORT: DATE OF CONSULT: 12/16/18. LOCATION: The patient is seen in room 335. HISTORY OF PRESENT ILLNESS: I was contacted in the overnight by the emergency room regarding Mr. Uriostegui, an 88-year-old gentleman who presented from the custodial where he was for all of 12 hours with complaints of nausea, vomiting, and abdominal pain. Workup in the emergency room included labs and a CAT scan. The CAT scan was suggestive of small bowel obstruction. The patient described onset of symptoms approximately at 2 o'clock yesterday with mid abdominal pain and nausea with retching. The patient is obstipated since yesterday. His last bowel movement was yesterday morning and he states it was within normal limits. 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 He presented to the [facility] there and was promptly transferred to [facility] where he underwent placement of a pacemaker. 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 The patient was discharged to a custodial where he arrived yesterday in the morning and then was brought to our hospital after the onset of his symptoms. He had been living at home prior to this. The patient denies any previous symptoms. PAST MEDICAL HISTORY: Hypertension, hypercholesterolemia, BPH, pacemaker placement. PAST SURGICAL HISTORY: Bilateral inguinal hernia repairs and open appendectomy in his 30s for a ruptured appendicitis. The patient spend over a week in the hospital at that time. MEDICATIONS: On discharge from [facility] [place] included: 1. Lisinopril. 2. Lorazepam. 3. Tamsulosin. 4. Oxybutynin. 5. Reglan. It should be noted the patient did receive narcotics postprocedure and required this for close to two days after the pacemaker placement, but he is no longer on narcotics. ALLERGIES: Include CODEINE, IBUPROFEN, and PENICILLIN. FAMILY HISTORY: Noncontributory. SOCIAL HISTORY: Lives alone, but now is in the custodial. At this point, nonsmoker. Denies alcohol use. REVIEW OF SYSTEMS: No fevers or chills. Recent shortness of breath as described with pacemaker placement and dizziness. No irritable bowel symptoms. The patient's last colonoscopy was over 10 years ago. No dysuria. Obstipation as described. No endocrine disorders. No psychiatric illnesses. No cerebrovascular disease. PHYSICAL EXAM: The patient is afebrile. Blood pressure 130/55 with a MAP of 80 , pulse 81. He is on room air, satting in the low 90s. He is alert and oriented x3. He is in no apparent distress. Head, Ears, Eyes, Nose, and Throat : Normocephalic, atraumatic. Sclerae anicteric. Mucous membranes are dry. Neck: No lymphadenopathy. Lungs: Poor inspiratory effort bilaterally with decreased breath sounds and no rhonchi or wheezing. Abdomen is soft, nondistended. Minimal tenderness in the right lower quadrant with negative rebound. No tenderness to percussion. No hernias are noted. Hyperactive bowel sounds with high pitched bowel sounds in the right upper quadrant. Well- healed surgical incisions in bilateral groins and elongated Wally-Joe incision. Rectal exam is unremarkable. No blood in the stool. Guaiac is pending. Extremities within normal limits. DIAGNOSTIC STUDIES/LAB DATA: Labs reviewed shows a mildly elevated white blood cell count of 11, it is down to 10 today. Chemistry panel reviewed shows mildly elevated creatinine. However, the patient's creatinine from 2 years ago was a similar mildly elevated troponin, which is normalized. Elevated bilirubin has not been repeated. BUN and creatinine ratio about 30. CT scan reviewed and showed high-grade small bowel obstruction without bowel wall thickening. No free fluid and no free air. Lymphadenopathy revealed, and radiologist recommended CT scan of the chest. I will defer this to the hospitalist service. These images were reviewed. IMPRESSION AND PLAN: An 88-year-old gentleman status post recent hospitalization for a second degree AV block and the need for pacemaker with prolonged hospitalization requiring a transfer to a custodial. I believe the patient is dehydrated and is suffering from a small bowel obstruction. My recommendation at this time is watchful waiting, n.p.o. status and bowel rest. An NG-tube was placed, although it is not clear what the output was. This was removed during transfer. At this point, I do not think it needs to be placed immediately unless the patient has additional vomiting or significant nausea. For now, IV fluids, n.p.o. status. Serial abdominal exams. CT scan of the chest as recommended by the radiology department. The patient may require operating room where we will consider diagnostic laparoscopy. He is aware of this plan. In the meantime, recommend GI and DVT prophylaxis. [id number]/[facility] #: [id number] MTDD
[2018-12-16] MEDS: Heparin VIAL(*) 5000 UNITS/ML VIAL (FIVE THOUSAND) SUBCUT SCH ×2 (14:25→20:41)
[2018-12-16] MEDS: D5W 1/2 NS 1000 ML BAG* 1,000 ML IV SCH (17:19)
[2018-12-16] MEDS: Famotidine IV* 10 MG/ML 2 ML (20 mg) IV SLOW PU SCH (20:41)
[2018-12-17] MEDS: D5W 1/2 NS 1000 ML BAG* 1,000 ML IV SCH ×3 (00:06→15:27)
[2018-12-17] MEDS: Heparin VIAL(*) 5000 UNITS/ML VIAL (FIVE THOUSAND) SUBCUT SCH ×3 (05:48→22:42)
[2018-12-17 06:41] LABS: ABS Lymphocytes 2.4 10^3/ul (1.0-4.8); ABS Monocytes 1.1 10^3/ul (0-0.8); ABS Neutrophils 5.1 10^3/ul (1.5-7.7); Eosinophil % 0.3 %; Hematocrit 39 % (42-52); Hemoglobin 13.1 g/dL (14.0-18.0); Lymphocyte % 28.3 %; Mean Corpuscular HGB Conc 34 g/dL (31-36); Mean Corpuscular Hemoglobin 32 pg (27-31); Mean Corpuscular Volume 94 fL (80-94); Mean Platelet Volume 10.5 fL (7.4-10.4); Nucleated Red Blood Cells % 0.1; Platelet Count 202 10^3/uL (150-450); Red Blood Count 4.13 10^6 /uL (4.18-5.48); Red Cell Distribution Width 13 % (10-15); White Blood Count 8.6 10^3/uL (3.5-10.8)
[2018-12-17 07:00] LABS: BUN/Creatinine Ratio 30.7 (8-20); Calcium 8.7 mg/dL (8.6-10.3); EGFR African American 84.7 (>60); Magnesium 1.8 mg/dL (1.9-2.7)
--- NOTE | 2018-12-17 07:13 | PN ---
Subjective Date of Service: 12/17/18 Interval History: Vomited twice yesterday. NG tube placed. VSS. No acute overnight event. Does not have any complaint but he has cough, difficult time talking 2/2 to his rhonchi. No abd pain, nausea or vomiting. Objective Active Medications: Famotidine (Pepcid Iv*) 20 mg IV SLOW PU BID [facility] Last Admin: 12/16/18 20:41 Dose: 20 mg Heparin Sodium (Porcine) (Heparin Vial(*)) 5,000 units SUBCUT Q8HR [facility] Last Admin: 12/17/18 05:48 Dose: 5,000 units Hydralazine HCl (Apresoline Iv*) 5 mg IV SLOW PU Q6H PRN PRN Reason: SPB > 180 Dextrose/Sodium Chloride (D5w 1/2 Ns 1000 Ml Bag*) 1,000 mls @ 150 mls/hr IV PER RATE [facility] Last Admin: 12/17/18 00:06 Dose: 150 mls/hr Influenza Virus Vaccine (Fluarix Quad [id number] Syr) 0.5 ml IM .ONCE ONE Stop: 12/17/18 09:01 Lorazepam (Ativan Inj*) 1 mg IV PUSH Q12H PRN PRN Reason: ANXIETY Miscellaneous (Ativan Pyxis Cash) 1 ea N/A .ATIVAN IV CASH PRN PRN Reason: PYXIS CASH Morphine Sulfate (Morphine Inj (Syringe))*) 4 mg IV Q4H PRN PRN Reason: Pain - Mild to Moderate Ondansetron HCl (Zofran Inj*) 4 mg IV Q4H PRN PRN Reason: NAUSEA/VOMITING Vital Signs - 8 hr 12/16/18 12/17/18 23:19 03:16 Temperature 98 F 99.1 F Pulse Rate 100 100 Respiratory 18 18 Rate Blood Pressure 163/67 151/72 (mmHg) O2 Sat by Pulse 94 93 Oximetry Oxygen Devices in Use Now: None Exam: Patient is lying on a bed with no any acute distress; NG tube in place HEENT: Normocephalic and atraumatic Lungs: crackles heard on b/l lungs prominent on bases. Diffuse rhonchi throughout Heart: S1/S2 heard with no murmur. Abdomen: Soft and nondistended. Past surgical scar noted on RLQ. Mild tenderness around umbilicus with no rebound tenderness, guarding or rigidity. Extremity: No swelling or cyanosis Neuro: Alert, conscious or oriented. Result Diagrams: 12/17/18 06:04 12/17/18 06:04 Additional Lab and Data: Lab Results 12/16/18 Range/Units 01:40 WBC 11.7 H (3.5-10.8) 10^3/uL RBC 4.52 (4.18-5.48) 10^6 /uL Hgb 14.5 (14.0-18.0) g/dL Hct 43 (42-52) % MCV 94 (80-94) fL MCH 32 H (27-31) pg MCHC 34 (31-36) g/dL RDW 13 (10-15) % Plt Count 204 (150-450) 10^3/uL MPV 10.9 H (7.4-10.4) fL Neut % (Auto) 59.5 % Lymph % (Auto) 27.6 % [place] % (Auto) 11.8 % Eos % (Auto) 0.3 % Baso % (Auto) 0.8 % Absolute Neuts (auto) 7.0 (1.5-7.7) 10^3/ul Absolute Lymphs (auto) 3.2 (1.0-4.8) 10^3/ul Absolute Monos (auto) 1.4 H (0-0.8) 10^3/ul Absolute Eos (auto) 0.0 (0-0.6) 10^3/ul Absolute Basos (auto) 0.1 (0-0.2) 10^3/ul Absolute Nucleated RBC 0.0 10^3/ul Nucleated RBC % 0.1 Assess/Plan/Problems-Billing Assessment: 88 y/o M with h/o CAD(sp PCI) with HFpEF, recent heart block(s/p PPM in 12/2018), HTN, hyperlipidemia, elevated TSH, anxiety presented with abdominal pain and nause found to have high grade SBO incidentally noted abdominal lymphadenopathy. History of appendectomy on 1966. Hospital course c/b cough with crackles; suspicion of aspiration pneumonitis; covered with abx for pneumonia. - Patient Problems (1) Small bowel obstruction Current Visit: Yes Status: Acute Code(s): K56.609 - UNSP INTESTNL OBST, UNSP TO PARTIAL VERSUS COMPLETE OBST SNOMED Code(s): 947416386 Comment: Came with abdominal pain and nausea. Found to have SBO with lymphadenopathy. Transition point is right flank. May be due to adhesion 2/2 prior surgery or ileus (as he was recently hosptalized); concern for malignancy as well because of lymphadenopathy noted He also has elevated Alk Phos whch may be caused by obstruction. Plan is to keep him NPO and give him IV fluids and observe. ABd xray showed no significant change in obstruction. NG tube placed again after he had vomiting 12/16/18 Surgery following (2) Aspiration pneumonitis Current Visit: Yes Status: Acute Code(s): J69.0 - PNEUMONITIS DUE TO INHALATION OF FOOD AND VOMIT SNOMED Code(s): 484293758 Comment: Had 2 episodes of vomiting yesterday. Has cough and crackles. Chest Xray shows mild left basilar atelectasis. Given his cough and crackles which was not present yesterday concern for aspiration pneumonitis. Covering with iv flagyl and ceftriaxone(started on 12/17) (3) Lymphadenopathy, abdominal Current Visit: Yes Status: Acute Code(s): R59.0 - LOCALIZED ENLARGED LYMPH NODES SNOMED Code(s): 976499431 Comment: Seen on CT. Could be due to any occult malignancy or inflammatory. Needs workup for malignancy with CT with contrast. Creatinine normalizing orderd for CT with IV contrast of lung (4) Hypertension Current Visit: Yes Status: Acute Code(s): I10 - ESSENTIAL (PRIMARY) HYPERTENSION SNOMED Code(s): 78826194 Comment: Oral med on hold; BP on higher side. IV hydralazine PRN (5) Hyperlipidemia Current Visit: Yes Status: Acute Code(s): E78.5 - HYPERLIPIDEMIA, UNSPECIFIED SNOMED Code(s): 51274316 Comment: was on atorvastatin On hold (6) Complete heart block Current Visit: Yes Status: Acute Code(s): I44.2 - ATRIOVENTRICULAR BLOCK, COMPLETE SNOMED Code(s): 55277771 Comment: was admitted on [facility] and placed pacemaker and discharged on 12/14/2018. Heart rate is paced (7) Elevated TSH Current Visit: Yes Status: Acute Code(s): R79.89 - OTHER SPECIFIED ABNORMAL FINDINGS OF BLOOD CHEMISTRY SNOMED Code(s): 574549589 Comment: subclinical hypothyroidism diagnosed on [facility]. will f/u in [place] clinic. (8) DVT prophylaxis Current Visit: Yes Status: Acute Code(s): Z29.9 - ENCOUNTER FOR PROPHYLACTIC MEASURES, UNSPECIFIED SNOMED Code(s): 984119801 Comment: [place]; as he may require emergency surgery at any time. (9) Full code status Current Visit: Yes Status: Acute Code(s): Z78.9 - OTHER SPECIFIED HEALTH STATUS SNOMED Code(s): 822708365 Status and Disposition: Inpatient. surgery following Attending: Cristina Alvarado Attestation Documenting Resident: Bree He Supervising Physician: Cristina Alvarado Attestation: This service has been performed in part by a resident under the direction of a teaching physician.I, Cristina Alvarado, performed the service, or was physically present during the critical, or cash portions of the service, furnished by the resident. I participated in the management of the patient.
[2018-12-17] MEDS: Morphine INJ* 2 MG/ML 1 ML SYRINGE (TWO MG - NEW SYRINGE VERSION) IV PRN ×2 (08:39→17:09)
[2018-12-17] MEDS: Famotidine IV* 10 MG/ML 2 ML (20 mg) IV SLOW PU SCH ×2 (08:39→22:42)
[2018-12-17] MEDS ORDERED: Influenza VAC *QUAD* 2019-20* 0.5 ML SYRINGE IM ONE (09:00)
[2018-12-17] MEDS ORDERED: Albuterol 2.5 MG/3 ML NEB.SOL* (0.083%) INH ONE (13:41)
[2018-12-17] MEDS ORDERED: Acetaminophen SUPP* 650 MG SUPP PR PRN (15:50)
[2018-12-17] MEDS ORDERED: Levofloxacin 750 MG IVPREMIX(* 750 MG/150 ML BAG IVPB SCH (16:00)
[2018-12-17] MEDS: cefTRIAXone(*) 2 GM in NS 0.9% 100 ML* 100 ML IVPB SCH (17:09)
[2018-12-17] MEDS ORDERED: Magnesium Sulfate 1 GM IV* 1 GM/100 ML BAG IV ONE (17:30)
--- NOTE | 2018-12-17 18:18 | PN ---
Progress Note - Progress Note Date of Service: 12/17/18 SOAP: Subjective: Patient seen and examined earlier today. No abdominal pain. Remains obstipated and constipated. NG tube placed yesterday after vomiting episodes. Output reviewed. Concern for aspiration pneumonia according to hospitalist service. Objective: Temp Pulse Resp BP Pulse Ox 100.2 F 100 16 168/69 91 12/17/18 15:29 12/17/18 15:29 12/17/18 17:09 12/17/18 15:29 12/17/18 15:29 Alert and oriented 3 in mild distress. Coarse breath sounds bilaterally. Abdomen: Soft, nondistended, nontender. Hyperactive bowel sounds. No hernias. Labs noted and within normal limits. Stool guaiac negative. Assessment: Hospital day two small bowel obstruction of unclear etiology. Adhesions most likely. Hemodynamically stable. Possible aspiration. Patient is now on antibiotics. Plan: Continue observation for now. Nothing by mouth IV fluids and NG tube. Antibiotics per hospitalist service. Possible origin tomorrow if persistent obstruction with no improvement. Patient and patient's close friend Sita aware of the plan.
[2018-12-17] MEDS: metroNIDAZOLE IV 500 MG/100ML* 500 MG/100 ML BAG IVPB SCH (18:34)
[2018-12-18] MEDS: D5W 1/2 NS 1000 ML BAG* 1,000 ML IV SCH ×3 (00:24→17:19)
[2018-12-18] MEDS: Morphine INJ* 2 MG/ML 1 ML SYRINGE (TWO MG - NEW SYRINGE VERSION) IV PRN ×5 (00:25→22:54)
[2018-12-18] MEDS: metroNIDAZOLE IV 500 MG/100ML* 500 MG/100 ML BAG IVPB SCH ×2 (05:44→18:09)
[2018-12-18] MEDS: Heparin VIAL(*) 5000 UNITS/ML VIAL (FIVE THOUSAND) SUBCUT SCH ×3 (05:48→23:00)
[2018-12-18 06:22] LABS: Hematocrit 39 % (42-52); Hemoglobin 13.4 g/dL (14.0-18.0); Mean Corpuscular HGB Conc 34 g/dL (31-36); Mean Corpuscular Hemoglobin 32 pg (27-31); Mean Corpuscular Volume 94 fL (80-94); Mean Platelet Volume 11.3 fL (7.4-10.4); Platelet Count 201 10^3/uL (150-450); Red Blood Count 4.15 10^6 /uL (4.18-5.48); Red Cell Distribution Width 13 % (10-15); White Blood Count 7.8 10^3/uL (3.5-10.8)
[2018-12-18 06:41] LABS: BUN/Creatinine Ratio 22.4 (8-20); Calcium 8.5 mg/dL (8.6-10.3); EGFR African American 87.7 (>60); EGFR Non-African American 72.5 (>60); Magnesium 1.8 mg/dL (1.9-2.7); Potassium 3.9 mmol/L (3.5-5.0)
--- NOTE | 2018-12-18 07:03 | PN ---
Subjective Date of Service: 12/18/18 Interval History: Day 3 BP on higher side; tachycardia No any acute overnight events. Patient is complaining of abdominal pain which 2 out of 10. Nausea present but no vomiting. accidently removed NG tube. Counselled about need of surgery. Paitent will talk to partner and son and decide about surgery. Objective Active Medications: Acetaminophen (Tylenol Supp*) 650 mg CO Q6H PRN PRN Reason: TEMPERATURE > 100.4 Famotidine (Pepcid Iv*) 20 mg IV SLOW PU BID [facility] Last Admin: 12/17/18 22:42 Dose: 20 mg Heparin Sodium (Porcine) (Heparin Vial(*)) 5,000 units SUBCUT Q8HR [facility] Last Admin: 12/18/18 05:48 Dose: 5,000 units Hydralazine HCl (Apresoline Iv*) 5 mg IV SLOW PU Q6H PRN PRN Reason: SPB > 180 Dextrose/Sodium Chloride (D5w 1/2 Ns 1000 Ml Bag*) 1,000 mls @ 150 mls/hr IV PER RATE [facility] Last Admin: 12/18/18 00:24 Dose: 150 mls/hr Metronidazole/Sodium Chloride (Flagyl 500 Mg Ivpb*) 500 mg in 100 mls @ 100 mls /hr IVPB Q12H [facility] Last Admin: 12/18/18 05:44 Dose: 100 mls/hr Ceftriaxone Sodium 2 gm/ (Sodium Chloride) 100 mls @ 200 mls/hr IVPB Q24H [facility] Last Admin: 12/17/18 17:09 Dose: 200 mls/hr Influenza Virus Vaccine (Fluarix Quad [id number] Syr) 0.5 ml IM .ONCE ONE Stop: 12/19/18 09:01 Lorazepam (Ativan Inj*) 1 mg IV PUSH Q12H PRN PRN Reason: ANXIETY Miscellaneous (Ativan Pyxis Cash) 1 ea N/A .ATIVAN IV CASH PRN PRN Reason: PYXIS CASH Morphine Sulfate (Morphine Inj (Syringe))*) 4 mg IV Q4H PRN PRN Reason: Pain - Mild to Moderate Last Admin: 12/18/18 00:25 Dose: 4 mg Ondansetron HCl (Zofran Inj*) 4 mg IV Q4H PRN PRN Reason: NAUSEA/VOMITING Vital Signs - 8 hr 12/17/18 12/18/18 12/18/18 23:25 00:25 01:30 Temperature 99.7 F Pulse Rate 99 Respiratory 18 16 18 Rate Blood Pressure 158/71 (mmHg) O2 Sat by Pulse 95 Oximetry 12/18/18 04:05 Temperature 97.5 F Pulse Rate 103 Respiratory 18 Rate Blood Pressure 171/73 (mmHg) O2 Sat by Pulse 95 Oximetry Oxygen Devices in Use Now: Nasal Cannula Exam: Patient is lying on a bed with no any acute distress; NG tube in place HEENT: Normocephalic and atraumatic Lungs: crackles heard on b/l lungs; prominent on bases. Heart: S1/S2 heard with no murmur. Abdomen: Soft and nondistended. Past surgical scar noted on RLQ. Mild tenderness around umbilicus with no rebound tenderness, guarding or rigidity. Extremity: No swelling or cyanosis Neuro: Alert, conscious or oriented. Result Diagrams: 12/18/18 05:21 12/18/18 05:21 Additional Lab and Data: Lab Results 12/16/18 Range/Units 01:40 WBC 11.7 H (3.5-10.8) 10^3/uL RBC 4.52 (4.18-5.48) 10^6 /uL Hgb 14.5 (14.0-18.0) g/dL Hct 43 (42-52) % MCV 94 (80-94) fL MCH 32 H (27-31) pg MCHC 34 (31-36) g/dL RDW 13 (10-15) % Plt Count 204 (150-450) 10^3/uL MPV 10.9 H (7.4-10.4) fL Neut % (Auto) 59.5 % Lymph % (Auto) 27.6 % [place] % (Auto) 11.8 % Eos % (Auto) 0.3 % Baso % (Auto) 0.8 % Absolute Neuts (auto) 7.0 (1.5-7.7) 10^3/ul Absolute Lymphs (auto) 3.2 (1.0-4.8) 10^3/ul Absolute Monos (auto) 1.4 H (0-0.8) 10^3/ul Absolute Eos (auto) 0.0 (0-0.6) 10^3/ul Absolute Basos (auto) 0.1 (0-0.2) 10^3/ul Absolute Nucleated RBC 0.0 10^3/ul Nucleated RBC % 0.1 Assess/Plan/Problems-Billing Assessment: 88 y/o M with h/o CAD(sp PCI) with HFpEF, recent heart block(s/p PPM in 12/2018), HTN, hyperlipidemia, elevated TSH, anxiety presented with abdominal pain and nause found to have high grade SBO incidentally noted diffuse adenopathy, concerning for lymphoma. History of appendectomy on 1966. Hospital course c/b cough with crackles; suspicion of aspiration pneumonitis; covered with abx for pneumonia.(day 3) - Patient Problems (1) Small bowel obstruction Current Visit: Yes Status: Acute Code(s): K56.609 - UNSP INTESTNL OBST, UNSP TO PARTIAL VERSUS COMPLETE OBST SNOMED Code(s): 611010436 Comment: complaining of abdominal pain and nausea. NG tube placed again after he removed it accidently. advised for surgery. Patient is deferring surgery at preasent; will decide after talking to his son. Came with abdominal pain and nausea. Found to have SBO with lymphadenopathy. Transition point is right flank. May be due to adhesion 2/2 prior surgery or ileus (as he was recently hosptalized); concern for malignancy as well because of lymphadenopathy noted He also has elevated Alk Phos whch may be caused by obstruction. Plan is to keep him NPO and give him IV fluids and observe. Surgery following (2) Lymphadenopathy Current Visit: Yes Status: Acute Code(s): R59.1 - GENERALIZED ENLARGED LYMPH NODES SNOMED Code(s): 38766835 Comment: - Diffuse seen on CT Chest and Abd/Pelvis - CBC notable for normocytic anemia mild, diff normal - Alk phos slightly high - No tumor seen, consult to onc to discuss FNA of LN (3) Aspiration pneumonitis Current Visit: Yes Status: Acute Code(s): J69.0 - PNEUMONITIS DUE TO INHALATION OF FOOD AND VOMIT SNOMED Code(s): 763189946 Comment: Had 2 episodes of vomiting. Has cough and diffuse crackles since then. Chest Xray shows mild left basilar atelectasis. Given his cough and crackles which was not present before concern for aspiration pneumonitis. Covering with iv flagyl and ceftriaxone(started on 12/18; day 3) (4) Hypertension Current Visit: Yes Status: Acute Code(s): I10 - ESSENTIAL (PRIMARY) HYPERTENSION SNOMED Code(s): 06324478 Comment: Oral med on hold; BP controlled. IV hydralazine PRN (5) Hyperlipidemia Current Visit: Yes Status: Acute Code(s): E78.5 - HYPERLIPIDEMIA, UNSPECIFIED SNOMED Code(s): 45380642 Comment: was on atorvastatin On hold (6) Complete heart block Current Visit: Yes Status: Acute Code(s): I44.2 - ATRIOVENTRICULAR BLOCK, COMPLETE SNOMED Code(s): 21387074 Comment: was admitted on [facility] and placed pacemaker and discharged on 12/14/2018. Heart rate is paced (7) Elevated TSH Current Visit: Yes Status: Acute Code(s): R79.89 - OTHER SPECIFIED ABNORMAL FINDINGS OF BLOOD CHEMISTRY SNOMED Code(s): 642096852 Comment: subclinical hypothyroidism diagnosed on er. [place] f[place]u [place]. (8) DVT prophylaxis Current Visit: Yes Status: Acute Code(s): Z29.9 - ENCOUNTER FOR PROPHYLACTIC MEASURES, UNSPECIFIED SNOMED Code(s): 186327935 Comment: [place]; as he may require emergency surgery at any time. (9) Full code status Current Visit: Yes Status: Acute Code(s): Z78.9 - OTHER SPECIFIED HEALTH STATUS SNOMED Code(s): 146219949 Status and Disposition: Inpatient. surgery following Attending: Cristina Alvarado Attestation Documenting Resident: Bree He Supervising Physician: Cristina Alvarado Attestation: This service has been performed in part by a resident under the direction of a teaching physician.I, Cristina Alvarado, performed the service, or was physically present during the critical, or cash portions of the service, furnished by the resident. I participated in the management of the patient.
[2018-12-18 07:26] LABS: ABS Basophils 0.1 10^3/ul (0-0.2); ABS Lymphocytes 1.5 10^3/ul (1.0-4.8); ABS Monocytes 0.5 10^3/ul (0-0.8); ABS Neutrophils 5.7 10^3/ul (1.5-7.7); Lymphocyte % 18.9 %; Nucleated Red Blood Cells % 0.1
[2018-12-18] MEDS: Famotidine IV* 10 MG/ML 2 ML (20 mg) IV SLOW PU SCH ×2 (09:03→22:57)
--- NOTE | 2018-12-18 09:54 | PN ---
Progress Note - Progress Note Date of Service: 12/18/18 SOAP: Subjective: Patient seen and examined earlier today. some abdominal pain. Remains obstipated and constipated. Concern for aspiration pneumonia according to hospitalist service. Objective: Temp Pulse Resp BP Pulse Ox 99.5 F 105 16 135/65 94 12/18/18 08:00 12/18/18 08:00 12/18/18 09:03 12/18/18 08:00 12/18/18 08:00 Alert and oriented 3 in mild distress. Coarse breath sounds bilaterally, rhonchi b/l Abdomen: Soft, nondistended, nontender. Hypoactive bowel sounds. Assessment: Hospital day 3 small bowel obstruction of unclear etiology. Adhesions most likely. Hemodynamically stable Plan: I recommend surgical intervention at this time. Pt has shown no improvement. I went over the details of a diagnostic laparoscopy, possible laparotomy.-- Pt would prefer to wait before surgery. He wants to speak with his friend Sita. Reevaluation later Nothing by mouth IV fluids and NG tube. Antibiotics per hospitalist service. []
--- NOTE | 2018-12-18 11:09 | PN ---
Progress Note - Progress Note Date of Service: 12/18/18 SOAP: Subjective: Spoke again with pt. Friend Sita at bedside. She states that pt's son whom she spoke to does not want pt to get surgery. She is suspicious of my intentions; stating that I'm too young, and that she hasn't researched me, and implying that I have financial benefit in surgery. Pt lying comfortably. No urgency of surgery. Concern is that pt shows no real improvement. We will continue to follow.
[2018-12-18] MEDS ORDERED: Iohexol 300* (CONTRAST) 10 ML SDV IV ONE (14:32)
--- NOTE | 2018-12-18 15:28 | PN ---
Hospitalist Progress Note Date of Service: 12/18/18 Spoke with patient and his female domestic partner, Sita, at length today regarding his SBO, patient requested I discuss further with Sita on the phone. Conservative mgmt continues to be not effective. We discuss high grade SBO, and nothing forthcoming on imaging in terms to cause, ddx remains possible illeus and adhesions from prior distant appy, or the possibility for occult malignancy. Also discuss likely low utility of endoscopy given no ability to scope small bowel, furthermore we discuss risks of not doing a timely surgery which could be bowel perforation and emergency surgery. Sita and Isaías's son ( who I am unable to speak to as they won't allow me his number) adamantly decline surgery at this time for the prominent reason that 1) they feel that this will pass on its own, as Sita herself once had an SBO tx with conservative mgmt, we discuss that he has shown no real progression with this tx but they feel nonetheless it is too early. I offer to speak to the son and Sita throughout the day for now we will contiue conservative mgmt and they have clearly expressed they understand the risks of bowel perf, emergency surgery or other unintended consequences.
[2018-12-18] MEDS: cefTRIAXone(*) 2 GM in NS 0.9% 100 ML* 100 ML IVPB SCH (17:13)
[2018-12-19] MEDS: LORazepam INJ* 2 MG/ML 1 ML VIAL IV PUSH PRN (01:07)
[2018-12-19] MEDS: D5W 1/2 NS 1000 ML BAG* 1,000 ML IV SCH ×4 (01:53→17:59)
[2018-12-19 04:39] LABS: ABS Basophils 0.1 10^3/ul (0-0.2); ABS Monocytes 0.8 10^3/ul (0-0.8); ABS Neutrophils 7.7 10^3/ul (1.5-7.7); Eosinophil % 0.2 %; Hematocrit 36 % (42-52); Hemoglobin 12.5 g/dL (14.0-18.0); Lymphocyte % 31.7 %; Mean Corpuscular HGB Conc 35 g/dL (31-36); Mean Corpuscular Hemoglobin 32 pg (27-31); Mean Corpuscular Volume 93 fL (80-94); Mean Platelet Volume 10.6 fL (7.4-10.4); Nucleated Red Blood Cells % 0.1; Platelet Count 219 10^3/uL (150-450); Red Blood Count 3.88 10^6 /uL (4.18-5.48); Red Cell Distribution Width 13 % (10-15); White Blood Count 12.6 10^3/uL (3.5-10.8)
[2018-12-19 04:42] LABS: INR 1.41 (0.82-1.09)
[2018-12-19 04:57] LABS: BUN/Creatinine Ratio 24.2 (8-20); EGFR African American 95.6 (>60); Potassium 3.6 mmol/L (3.5-5.0)
[2018-12-19] MEDS: metroNIDAZOLE IV 500 MG/100ML* 500 MG/100 ML BAG IVPB SCH ×2 (05:41→17:44)
[2018-12-19] MEDS: Heparin VIAL(*) 5000 UNITS/ML VIAL (FIVE THOUSAND) SUBCUT SCH ×3 (05:44→22:42)
[2018-12-19] MEDS ORDERED: Influenza VAC *QUAD* 2019-20* 0.5 ML SYRINGE IM ONE (09:00)
--- NOTE | 2018-12-19 10:00 | PN ---
Progress Note - Progress Note Date of Service: 12/19/18 SOAP: Subjective: Patient seen and examined earlier today. some abdominal pain. Remains obstipated and constipated. Ct scan c/w b/l pneumonia. NGT pulled. hiccoughs Objective: Temp Pulse Resp BP Pulse Ox 99.1 F 92 20 145/70 98 12/19/18 07:48 12/19/18 08:33 12/19/18 08:00 12/19/18 08:33 12/19/18 08:33 Alert and oriented 3 in mild distress. Coarse breath sounds bilaterally, rhonchi b/l Abdomen: Soft, mild distension, nontender. Hypoactive bowel sounds. CT scan chest reviewed WBC up Assessment: Hospital day 4 small bowel obstruction of unclear etiology- adhesions vs mass. SIRS. b/l asp pn Plan: I recommend surgical intervention at this time. Pt has shown no improvement. I went over the details of a diagnostic laparoscopy, possible laparotomy.-- Pt would prefer to wait one more day. I discussed the findings regarding change in wbc, and chest scan. The risks of witing include prolonged hospitalization and . Pt also aware that surgery carries a risk of requiring NH care post op, along with resp failure and . Pt has verbalized that it is his decision to make- and not Sita's. I spoke to son Ganga over the phone. He wants what is best. He spoke to his father and states that he is making his own decision. Nothing by mouth IV fluids NG tube to be replaced. Antibiotics per hospitalist service. case d/w hospitalist
[2018-12-19] MEDS: Famotidine IV* 10 MG/ML 2 ML (20 mg) IV SLOW PU SCH ×2 (10:26→22:41)
--- NOTE | 2018-12-19 13:25 | PN ---
Subjective Date of Service: 12/19/18 Interval History: HD 4 on 12/19 88 M PMH HTN, BPH, panic disorder, recently admitted at outside hospital for high grade AVB s/p PPM d/c to rehab facility readmitted with high grade SBO, found to also have incidental diffuse LAD, c/b aspiration pneumonitis/PNA with no response in conservative mgmt. Interim Hx: Has once again removed NGT, Still AOx3 but need frequent orientation VSS-though tachycardic this morning, worsening mgmt of secretions Complicated family dynamics, see notes with pts partner, attempt to reach pts son today by both surgery and medicine who reveal that son feels dad should make decision himself. He is electing for surgery tomorrow 12/20 against medical advice. Imaging: CT Chest shows diffuse adenopathy, onc consulted, to get bx in surgery Today seen with partner Sita at bedside who does majority of talking for pt, she is directing much of his care, though we re orient that he is able to make medical decisions himself. Both he and Sita with poor health literacy and limited understanding of complex medical issues, son, Ganga (cell [phone]) attempted to be called and VM left. He reports no gabby pain, but ongoing nausea , some SOB and cough and ++ secretions, no BM, x1 vomiting, remains on abx and NGT with IVF. No other complaints, see A/P for ongoing discussion. Objective Active Medications: Acetaminophen (Tylenol Supp*) 650 mg ME Q6H PRN PRN Reason: TEMPERATURE > 100.4 Famotidine (Pepcid Iv*) 20 mg IV SLOW PU BID [facility] Last Admin: 12/19/18 10:26 Dose: 20 mg Heparin Sodium (Porcine) (Heparin Vial(*)) 5,000 units SUBCUT Q8HR [facility] Last Admin: 12/19/18 05:44 Dose: 5,000 units Hydralazine HCl (Apresoline Iv*) 5 mg IV SLOW PU Q6H PRN PRN Reason: SPB > 180 Dextrose/Sodium Chloride (D5w 1/2 Ns 1000 Ml Bag*) 1,000 mls @ 150 mls/hr IV PER RATE [facility] Last Admin: 12/19/18 10:01 Dose: 150 mls/hr Metronidazole/Sodium Chloride (Flagyl 500 Mg Ivpb*) 500 mg in 100 mls @ 100 mls /hr IVPB Q12H [facility] Last Admin: 12/19/18 05:41 Dose: 100 mls/hr Ceftriaxone Sodium 2 gm/ (Sodium Chloride) 100 mls @ 200 mls/hr IVPB Q24H [facility] Last Admin: 12/18/18 17:13 Dose: 200 mls/hr Lorazepam (Ativan Inj*) 1 mg IV PUSH Q12H PRN PRN Reason: ANXIETY Last Admin: 12/19/18 01:07 Dose: 1 mg Miscellaneous (Ativan Pyxis Mejia) 1 ea N/A .ATIVAN IV MEJIA PRN PRN Reason: PYXIS MEJIA Morphine Sulfate (Morphine Inj (Syringe))*) 4 mg IV Q4H PRN PRN Reason: Pain - Mild to Moderate Last Admin: 12/18/18 22:54 Dose: 4 mg Ondansetron HCl (Zofran Inj*) 4 mg IV Q4H PRN PRN Reason: NAUSEA/VOMITING Vital Signs - 8 hr 12/19/18 12/19/18 12/19/18 07:48 08:00 08:33 Temperature 99.1 F Pulse Rate 102 92 Respiratory 18 20 Rate Blood Pressure 172/71 145/70 (mmHg) O2 Sat by Pulse 95 98 Oximetry 12/19/18 11:20 Temperature 97.9 F Pulse Rate 97 Respiratory 18 Rate Blood Pressure 163/76 (mmHg) O2 Sat by Pulse 95 Oximetry Oxygen Devices in Use Now: Nasal Cannula Appearance: Uncomfortable but in NAD, rhonchourus Eyes: No Scleral Icterus, PERRLA Ears/Nose/Mouth/Throat: Mucous Membranes Moist Neck: - - Shoddy cervical LAD Respiratory: - - Blt crackles and rhonchi Cardiovascular: RRR Abdominal: - - Diffuse distention, no bowel sounds no rebound or gaurding Lymphatic: - - Cervical nodes Extremities: No Edema Skin: No Rash or Ulcers Neurological: Alert and Oriented x 3 Result Diagrams: 12/19/18 04:25 12/19/18 04:25 Additional Lab and Data: Microbiology and Other Data: Microbiology 12/16/18 09:40 Stool Occult Blood (GURVINDER) - Final Stool 12/16/18 07:18 Nasal Screen MRSA (PCR) - Final Nasal Mrsa Not Detected Assess/Plan/Problems-Billing Assessment: 88 M PMH HTN, BPH, panic disorder, recently admitted at outside hospital for high grade AVB s/p PPM d/c to rehab facility readmitted with high grade SBO, found to also have incidental diffuse LAD, c/b aspiration pneumonitis/PNA with no response in conservative mgmt. - Patient Problems (1) Small bowel obstruction Current Visit: Yes Status: Acute Code(s): K56.609 - UNSP INTESTNL OBST, UNSP TO PARTIAL VERSUS COMPLETE OBST SNOMED Code(s): 398161828 Comment: - Ileus vs malignancy related - Failing conservative therapy, plan for surgery 12/20 at pts request, he understands by delaying surgery he puts himself at risk for life threatning complications. His family has also been counseled and accept these risks (2) Preoperative cardiovascular examination Current Visit: Yes Status: Acute Code(s): Z01.810 - ENCOUNTER FOR PREPROCEDURAL CARDIOVASCULAR EXAMINATION SNOMED Code(s): 945410395 Comment: - At request of surgery - Pt can easily complete 4 METS without chest pain - EKG wholly paced on 12/16, no e/o ischemia - RCRI is 0, low risk from a cardiac standpoint, 3.9% risk of NC, CVA - The aspiration PNA complicates his pulmonary risk, his ARISCAT score is 56 42.1% risk of in-hospital post-op pulmonary complications, though modifying this risk is difficult given the SBO is contributing to his ongoing pulm distress - Overall the pt from a cardiac standpoint is low risk for a mod risk procedure , he is mod to high risk from a pulm standpoint of post op complications and there are no modifable risk factors to assuage this, from a functional standpoint, from age alone pt is high risk for post op delerium - Risk is discussed with pt and in light of consequences of holding on surgery ( bowel perforation, bowel necrosis, ), he elects to proceed and we recommend no further testing to optimize him (3) Lymphadenopathy Current Visit: Yes Status: Acute Code(s): R59.1 - GENERALIZED ENLARGED LYMPH NODES SNOMED Code(s): 36601315 Comment: - Diffuse seen on CT Chest and Abd/Pelvis, concerning for lymphoma - Appreciate onc input - CBC notable for normocytic anemia mild, diff normal - Alk phos slightly high - LDH, B2 Microglobulin, SPEP ordered - Needs bx of LN, to be done intraoperatively (4) Aspiration pneumonitis Current Visit: Yes Status: Acute Code(s): J69.0 - PNEUMONITIS DUE TO INHALATION OF FOOD AND VOMIT SNOMED Code(s): 541178638 Comment: - vs PNA, given elevated WBC, covering with IV Flagyl, CTX (Day 4 on 12/19) - 2/2 to poor mgmt of abdominal contents (5) Hypertension Current Visit: Yes Status: Acute Code(s): I10 - ESSENTIAL (PRIMARY) HYPERTENSION SNOMED Code(s): 16575426 Comment: - Oral med on hold; BP controlled. - IV hydralazine PRN (6) Hyperlipidemia Current Visit: Yes Status: Acute Code(s): E78.5 - HYPERLIPIDEMIA, UNSPECIFIED SNOMED Code(s): 53388563 Comment: - Holding atorvastatin while NPO (7) Complete heart block Current Visit: Yes Status: Acute Code(s): I44.2 - ATRIOVENTRICULAR BLOCK, COMPLETE SNOMED Code(s): 43176626 Comment: - d/c on 12/14 from PPM being placed at [place], HR paced (8) Elevated TSH Current Visit: Yes Status: Acute Code(s): R79.89 - OTHER SPECIFIED ABNORMAL FINDINGS OF BLOOD CHEMISTRY SNOMED Code(s): 886333991 Comment: - Subclinical hypothyroidism diagnosed at [facility], can be FU outpt (9) DVT prophylaxis Current Visit: Yes Status: Acute Code(s): Z29.9 - ENCOUNTER FOR PROPHYLACTIC MEASURES, UNSPECIFIED SNOMED Code(s): 180233281 Comment: - SCD; as he may require emergency surgery at any time. (10) Full code status Current Visit: Yes Status: Acute Code(s): Z78.9 - OTHER SPECIFIED HEALTH STATUS SNOMED Code(s): 490562810 Comment: - Reconfirmed with patient today Status and Disposition: Inpatient. surgery following
[2018-12-19] MEDS: Morphine INJ* 2 MG/ML 1 ML SYRINGE (TWO MG - NEW SYRINGE VERSION) IV PRN ×2 (14:19→22:46)
[2018-12-19] MEDS: cefTRIAXone(*) 2 GM in NS 0.9% 100 ML* 100 ML IVPB SCH (16:40)
[2018-12-20] MEDS ORDERED: LORazepam INJ* 2 MG/ML 1 ML VIAL IV PUSH ONE (02:28)
[2018-12-20] MEDS ORDERED: Lorazepam PYXIS KEY PRN (02:28)
[2018-12-20] MEDS: metroNIDAZOLE IV 500 MG/100ML* 500 MG/100 ML BAG IVPB SCH ×2 (05:59→22:14)
[2018-12-20 06:01] LABS: Hematocrit 36 % (42-52); Hemoglobin 12.1 g/dL (14.0-18.0); Mean Corpuscular HGB Conc 34 g/dL (31-36); Mean Corpuscular Hemoglobin 32 pg (27-31); Mean Corpuscular Volume 93 fL (80-94); Mean Platelet Volume 10.8 fL (7.4-10.4); Platelet Count 229 10^3/uL (150-450); Red Blood Count 3.81 10^6 /uL (4.18-5.48); Red Cell Distribution Width 13 % (10-15); White Blood Count 9.1 10^3/uL (3.5-10.8)
[2018-12-20 06:06] LABS: INR 1.36 (0.82-1.09)
[2018-12-20 06:18] LABS: BUN/Creatinine Ratio 20.9 (8-20); Calcium 8.3 mg/dL (8.6-10.3); EGFR Non-African American 84.3 (>60); Potassium 3.8 mmol/L (3.5-5.0)
--- NOTE | 2018-12-20 06:43 | PN ---
Subjective Date of Service: 12/20/18 Interval History: HD 5 on 12/20 88 M PMH HTN, BPH, panic disorder, recently admitted at outside hospital for high grade AVB s/p PPM d/c to rehab facility readmitted with high grade SBO, found to also have incidental diffuse LAD, c/b aspiration pneumonitis/PNA with no response in conservative mgmt. Overnight: Patient removed NG tube; VSS LAbs: anemia Patient doesnt have complain at present. NO nausea or abdominal pain. Paased flatus yesterday. NO BM He has decided to go for surgery. Objective Active Medications: Acetaminophen (Tylenol Supp*) 650 mg ID Q6H PRN PRN Reason: TEMPERATURE > 100.4 Famotidine (Pepcid Iv*) 20 mg IV SLOW PU BID [facility] Last Admin: 12/19/18 22:41 Dose: 20 mg Heparin Sodium (Porcine) (Heparin Vial(*)) 5,000 units SUBCUT Q8HR [facility] Last Admin: 12/19/18 22:42 Dose: 5,000 units Hydralazine HCl (Apresoline Iv*) 5 mg IV SLOW PU Q6H PRN PRN Reason: SPB > 180 Metronidazole/Sodium Chloride (Flagyl 500 Mg Ivpb*) 500 mg in 100 mls @ 100 mls /hr IVPB Q12H [facility] Last Admin: 12/20/18 05:59 Dose: 100 mls/hr Ceftriaxone Sodium 2 gm/ (Sodium Chloride) 100 mls @ 200 mls/hr IVPB Q24H [facility] Last Admin: 12/19/18 16:40 Dose: 200 mls/hr Dextrose/Sodium Chloride (D5w 1/2 Ns 1000 Ml Bag*) 1,000 mls @ 50 mls/hr IV PER RATE [facility] Last Admin: 12/19/18 17:59 Dose: 50 mls/hr Lorazepam (Ativan Inj*) 1 mg IV PUSH Q12H PRN PRN Reason: ANXIETY Last Admin: 12/19/18 01:07 Dose: 1 mg Miscellaneous (Ativan Pyxis Cash) 1 ea N/A .ATIVAN IV CASH PRN PRN Reason: PYXIS CASH Morphine Sulfate (Morphine Inj (Syringe))*) 4 mg IV Q4H PRN PRN Reason: Pain - Mild to Moderate Last Admin: 09/15/19 22:46 Dose: 4 mg Ondansetron HCl (Zofran Inj*) 4 mg IV Q4H PRN PRN Reason: NAUSEA/VOMITING Vital Signs - 8 hr 12/19/18 12/19/18 12/20/18 22:46 23:20 00:08 Temperature 97.6 F Pulse Rate 89 Respiratory 18 18 16 Rate Blood Pressure 173/74 (mmHg) O2 Sat by Pulse 97 Oximetry 12/20/18 12/20/18 02:52 04:36 Temperature 97.9 F Pulse Rate 91 Respiratory 18 18 Rate Blood Pressure 149/73 (mmHg) O2 Sat by Pulse 98 Oximetry Oxygen Devices in Use Now: Nasal Cannula Exam: Patient is lying on a bed. HEENT: Normocephalic and atraumatic Lungs: crackles heard on b/l lower lungs. Heart: NOrmal heart sound heard with no murmur ABdomen: Soft, nondistended and nontender. Previous scar tissue on RLQ. Extremity: NOrmal Neuro: ALert and oriented; drowsy Result Diagrams: 12/20/18 05:23 12/20/18 05:23 Additional Lab and Data: Microbiology and Other Data: Microbiology 12/16/18 09:40 Stool Occult Blood (GURVINDER) - Final Stool 12/16/18 07:18 Nasal Screen MRSA (PCR) - Final Nasal Mrsa Not Detected Assess/Plan/Problems-Billing Assessment: 88 M PMH HTN, BPH, panic disorder, recently admitted at outside hospital for high grade AVB s/p PPM d/c to rehab facility readmitted with high grade SBO, found to also have incidental diffuse LAD, c/b aspiration pneumonitis/PNA with no response in conservative mgmt. Planis to do surgery today with possible intraoperative biopsy of LN. - Patient Problems (1) Small bowel obstruction Current Visit: Yes Status: Acute Code(s): K56.609 - UNSP INTESTNL OBST, UNSP TO PARTIAL VERSUS COMPLETE OBST SNOMED Code(s): 411967845 Comment: - Ileus vs malignancy related - Failing conservative therapy, plan for surgery today at pts request, he understands by delaying surgery he puts himself at risk for life threatning complications. His family has also been counseled and accept these risks - plan to do intraoperative biospy of LN as well. (2) Preoperative cardiovascular examination Current Visit: Yes Status: Acute Code(s): Z01.810 - ENCOUNTER FOR PREPROCEDURAL CARDIOVASCULAR EXAMINATION SNOMED Code(s): 289387126 Comment: - molding manager consulted for assessment of pacemaker. - At request of surgery - Pt can easily complete 4 METS without chest pain - EKG wholly paced on 12/16, no e/o ischemia - RCRI is 0, low risk from a cardiac standpoint, 3.9% risk of ID, CVA - The aspiration PNA complicates his pulmonary risk, his ARISCAT score is 56 42.1% risk of in-hospital post-op pulmonary complications, though modifying this risk is difficult given the SBO is contributing to his ongoing pulm distress - Overall the pt from a cardiac standpoint is low risk for a mod risk procedure , he is mod to high risk from a pulm standpoint of post op complications and there are no modifable risk factors to assuage this, from a functional standpoint, from age alone pt is high risk for post op delerium - Risk is discussed with pt and in light of consequences of holding on surgery ( bowel perforation, bowel necrosis, ), he elects to proceed and we recommend no further testing to optimize him (3) Lymphadenopathy Current Visit: Yes Status: Acute Code(s): R59.1 - GENERALIZED ENLARGED LYMPH NODES SNOMED Code(s): 95433519 Comment: - Diffuse seen on CT Chest and Abd/Pelvis, concerning for lymphoma - Appreciate onc input - CBC notable for normocytic anemia mild, diff normal - Alk phos slightly high - LDH, B2 Microglobulin, SPEP ordered - Needs bx of LN, to be done intraoperatively (4) Aspiration pneumonitis Current Visit: Yes Status: Acute Code(s): J69.0 - PNEUMONITIS DUE TO INHALATION OF FOOD AND VOMIT SNOMED Code(s): 948709751 Comment: -WBC count decreasing - vs PNA, given elevated WBC, covering with IV Flagyl, CTX (Day 5 on 12/20) - 2/2 to poor mgmt of abdominal contents (5) Hypertension Current Visit: Yes Status: Acute Code(s): I10 - ESSENTIAL (PRIMARY) HYPERTENSION SNOMED Code(s): 96145434 Comment: - Oral med on hold; BP controlled. - IV hydralazine PRN (6) Hyperlipidemia Current Visit: Yes Status: Acute Code(s): E78.5 - HYPERLIPIDEMIA, UNSPECIFIED SNOMED Code(s): 98777820 Comment: - Holding atorvastatin while NPO (7) Complete heart block Current Visit: Yes Status: Acute Code(s): I44.2 - ATRIOVENTRICULAR BLOCK, COMPLETE SNOMED Code(s): 48964166 Comment: - d/c on 12/14 from PPM being placed at [place], HR paced (8) Elevated TSH Current Visit: Yes Status: Acute Code(s): R79.89 - OTHER SPECIFIED ABNORMAL FINDINGS OF BLOOD CHEMISTRY SNOMED Code(s): 358400726 Comment: - Subclinical hypothyroidism diagnosed at [facility], can be FU outpt (9) DVT prophylaxis Current Visit: Yes Status: Acute Code(s): Z29.9 - ENCOUNTER FOR PROPHYLACTIC MEASURES, UNSPECIFIED SNOMED Code(s): 515228718 Comment: - SCD; as he may require emergency surgery at any time. (10) Full code status Current Visit: Yes Status: Acute Code(s): Z78.9 - OTHER SPECIFIED HEALTH STATUS SNOMED Code(s): 188230463 Comment: - Reconfirmed with patient Status and Disposition: Inpatient. surgery following Attending: Nadia Henao Attestation Documenting Resident: Bree He Supervising Physician: Nadia Henao Attestation: This service has been performed in part by a resident under the direction of a teaching physician.I, Nadia Henao, performed the service, or was physically present during the critical, or cash portions of the service, furnished by the resident. I participated in the management of the patient.
[2018-12-20] MEDS: Morphine INJ* 2 MG/ML 1 ML SYRINGE (TWO MG - NEW SYRINGE VERSION) IV PRN (07:24)
[2018-12-20] MEDS: Heparin VIAL(*) 5000 UNITS/ML VIAL (FIVE THOUSAND) SUBCUT SCH ×2 (07:48→12:45)
[2018-12-20] MEDS: Famotidine IV* 10 MG/ML 2 ML (20 mg) IV SLOW PU SCH ×2 (10:54→22:14)
[2018-12-20] MEDS ORDERED: Bupivacaine 0.25% SDV PF* 10 ML VIAL INJ ONE (14:12)
[2018-12-20] MEDS ORDERED: Succinylcholine* 20 MG/ML 10 ML VIAL ONE (14:20)
[2018-12-20] MEDS ORDERED: fentaNYL* 50 MCG/ML 5 ML VIAL (250 MCG VIAL) ONE (14:20)
[2018-12-20] MEDS ORDERED: Propofol* 10 MG/ML 20 ML BTL ONE (14:20)
[2018-12-20] MEDS ORDERED: Lidocaine 2% PF * 5 ML VIAL ONE (14:20)
[2018-12-20] MEDS ORDERED: Dexamethasone IV* 4 MG/ML 1 ML (4 MG) ONE (14:20)
[2018-12-20] MEDS ORDERED: Ondansetron INJ* 2 MG/ML VIAL ONE (14:20)
[2018-12-20] MEDS ORDERED: Phenylephrine 10 MG/ML VIAL* 1 ML VIAL ONE (14:20)
[2018-12-20] MEDS ORDERED: Midazolam* 1 MG/ML 5 ML VIAL (5 MG) ONE (14:21)
[2018-12-20] MEDS ORDERED: Rocuronium* 10 MG/ML VIAL ONE (14:21)
[2018-12-20] MEDS ORDERED: KETAMINE HCL* 50 MG/ML 10 ML VIAL ONE (14:22)
[2018-12-20] MEDS ORDERED: fentaNYL* 50 MCG/ML 2 ML VIAL (100 MCG VIAL) ONE ×2 (16:27→16:55)
[2018-12-20] MEDS ORDERED: Bupivacaine 0.5%* 50 ML MDV VIAL ONE (16:54)
--- NOTE | 2018-12-20 17:18 | BRIEFOPN ---
Brief Operative/Procedure Note - Operation Details Pre-Op Diagnosis: small bowel obstruction; mesenteric lymphadenopathy Post-Op Diagnosis: same Procedures: exploratory laparotomy, lysis of adhesions, biopsy small bowel mesenteric lymph node Surgeon(s)/Proceduralists: Abigail. Assist: DIMITRIOS Walker Anesthesia: GET Estimated Blood Loss: < 50 ml Findings: as above Specimen(s)/Culture(s) Description: mesenteric lymph node Complications: none
[2018-12-20] MEDS ORDERED: Propofol* 100 ML ONE (17:32)
--- NOTE | 2018-12-20 18:25 | PN ---
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 Patient remains intubated post-op. Asked to manage ventilator Vital Signs: Temp Pulse Resp BP SpO2 FiO2 96.4 F 82 15 183/79 97 60 12/20/18 17:30 12/20/18 18:15 12/20/18 18:00 12/20/18 18:15 12/20/18 18:15 12/20 17:45 Physical Exam: Gen: intubated. sedated. Heart: RRR Lungs: Decreased BS's Abd: bandaged. No rebound Ext : No ARON Fluid Balance (Past 24 Hours): I= O= Net Intake & Output 12/18/18 12/19/18 12/20/18 12/21/18 06:59 06:59 06:59 06:59 Intake Total 3159 3159 2173 Output Total 193 222 2202 45 Balance 2794 2414 523 -45 Weight 178 lb Intake: IV Fluids 2959 3159 2173 ABX - FLAGYL 107 107 D5W 1/2 NS 2959 2947 1960 ceftriaxone 105 106 IVPB 200 ceftriaxone 100 magnesium 100 Oral 0 0 0 Output: NG Tube Drainage Amount 780 561 5414 Urine 20 145 200 [place] 45 Other: Estimated Void Large Medium Medium # Bowel Movements 0 0 # Voids 1 1 1 ADLs: Meal Record Start: 12/16/18 06: 30 Freq: Status: Complete Protocol: Created 12/16/18 06:30 System (Rec: 12/16/18 06:30 System SSU-M07) Document 12/17/18 17:14 [id number] (Rec: 12/17/18 17:14 [id number] SSU-M17) Document 12/17/18 18:35 [id number] (Rec: 12/17/18 18:35 [id number] SSU-M17) Document 12/20/18 12:00 [id number] (Rec: 12/20/18 13:39 [id number] SSU-M17) ADLs: Meal Record Start: 12/20/18 17: 52 Freq: DAILY@0900,1400,1800 Status: Complete Protocol: Created 12/20/18 17:53 [id number] (Rec: 12/20/18 17:53 [id number] ICU-C15) ADLs: Meal Record Start: 12/20/18 17: 52 Freq: ,13,18 Status: Active Protocol: Created 12/20/18 17:53 [id number] (Rec: 12/20/18 17:53 [id number] ICU-C15) Document 12/20/18 18:00 [id number] (Rec: 12/20/18 18:19 [id number] ICU-L03) Intake and Output Start: 12/16/18 01: 17 Freq: Status: Active Protocol: Created 12/16/18 01:17 System (Rec: 12/16/18 01:17 System [id number]-C11) Document 12/16/18 12:40 [id number] (Rec: 12/16/18 12:40 [id number] SSU-C12) Document 12/16/18 15:48 [id number] (Rec: 12/16/18 15:49 MIP1330 SSU-L03) Document 12/19/18 17:55 [id number] (Rec: 12/19/18 17:55 [id number] SSU-M13) Intake and Output Start: 12/16/18 06: 30 Freq: DAILY@0600,1400,2200 Status: Complete Protocol: Created 12/16/18 06:30 System (Rec: 12/16/18 06:30 System SSU-M07) Document 12/16/18 14:24 [id number] (Rec: 12/16/18 14:25 [id number] SSU-M06) Document 12/16/18 18:10 [id number] (Rec: 12/16/18 18:10 [id number] SSU-M06) Document 12/16/18 20:25 [id number] (Rec: 12/16/18 20:25 [id number] SSU-M07) Document 12/16/18 22:33 [id number] (Rec: 12/16/18 22:33 [id number] SSU-M18) Document 12/17/18 05:06 [id number] (Rec: 12/17/18 05:06 [id number] SSU-M18) Document 12/17/18 05:53 [id number] (Rec: 12/17/18 05:53 IOL5210 SSU-M18) Document 12/17/18 14:11 [id number] (Rec: 12/17/18 14:11 [id number] SSU-M17) Document 12/17/18 22:37 [id number] (Rec: 12/17/18 22:38 [id number] SSU-M17) Document 12/18/18 06:42 [id number] (Rec: 12/18/18 06:42 [id number] SSU-M14) Document 12/18/18 13:01 [id number] (Rec: 12/18/18 13:01 [id number] SSU-M17) Document 12/18/18 15:26 [id number] (Rec: 12/18/18 15:27 [id number] SSU-M17) Document 12/18/18 23:27 [id number] (Rec: 12/18/18 23:28 CSR1738 SSU-M17) Document 12/18/18 23:28 [id number] (Rec: 12/18/18 23:28 KCB9256 SSU-M17) Document 12/19/18 01:40 [id number] (Rec: 12/19/18 01:40 [id number] SSU-C19) Document 12/19/18 04:21 [id number] (Rec: 12/19/18 04:21 [id number] SSU-M15) Document 12/19/18 05:38 [id number] (Rec: 12/19/18 05:38 KYN9402 SSU-L02) Document 12/19/18 14:18 [id number] (Rec: 12/19/18 14:19 CIH1572 SSU-M18) Document 12/19/18 23:23 [id number] (Rec: 12/19/18 23:23 [id number] SSU-M18) Document 12/20/18 01:23 [id number] (Rec: 12/20/18 01:24 HVU1789 SSU-M18) Document 12/20/18 06:00 [id number] (Rec: 12/20/18 06:11 QFR2540 SSU-M18) Document 12/20/18 06:34 [id number] (Rec: 12/20/18 06:34 [id number] SSU-M18) Intake and Output Start: 12/20/18 17: 52 Freq: DAILY@0600,1400,2200 Status: Complete Protocol: Created 12/20/18 17:53 [id number] (Rec: 12/20/18 17:53 [id number] ICU-C15) Intake and Output Start: 12/20/18 17: 52 Freq: Q1HR Status: Active Protocol: Created 12/20/18 17:53 [id number] (Rec: 12/20/18 17:53 [id number] ICU-C15) Document 12/20/18 18:00 [id number] (Rec: 12/20/18 18:18 [id number] ICU-L03) Labs: Laboratory Results - last 24 hr 12/20/18 12/20/18 12/20/18 05:23 05:23 05:23 WBC 9.1 RBC 3.81 L Hgb 12.1 L Hct 36 L MCV 93 MCH 32 H MCHC 34 RDW 13 Plt Count 229 MPV 10.8 H INR (Anticoag Therapy) 1.36 H Sodium 136 Potassium 3.8 Chloride 100 L Carbon Dioxide 32 Anion Gap 4 BUN 18 Creatinine 0.86 Est GFR ( Amer) 102.0 Est GFR (Non-Af Amer) 84.3 BUN/Creatinine Ratio 20.9 H Glucose 119 H Calcium 8.3 L Impression: 88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 Hospital course remarkable for aspiration PNA. Recently, with AVB and s/p PPM Plan: continue mechanical ventilation overnight Decrease Fi02 and tidal volumes to 40% and 420 Wean to extubate in AM. F/U ABG in AM continue ABX for aspiration PNA Propofol for RASS -1 to -2 overnight. May use also Fentanyl if needed. Critical Care Time: 45 minutes
[2018-12-20] MEDS: cefTRIAXone(*) 2 GM in NS 0.9% 100 ML* 100 ML IVPB SCH (18:32)
[2018-12-20] MEDS: D5W 1/2 NS 1000 ML BAG* 1,000 ML IV SCH (18:42)
[2018-12-20] MEDS ORDERED: Propofol* 100 ML IV SCH (19:00)
[2018-12-21] MEDS: D5W 1/2 NS 1000 ML BAG* 1,000 ML IV SCH ×3 (02:29→20:56)
--- NOTE | 2018-12-21 02:53 | OP ---
DATE OF OPERATION: 12/20/18 - ROOM #ICU-03 DATE OF : 34 SURGEON: Jude Hayes MD FRUIT AND VEGETABLE CLASSER: DIMITRIOS Odell ANESTHESIOLOGIST: Dr. Flores. ANESTHESIA: General with local. PRE-OP DIAGNOSES: 1. Small bowel obstruction. 2. Mesenteric adenopathy. POST-OP DIAGNOSES: 1. Small bowel obstruction secondary to intraabdominal adhesions. 2. Mesenteric adenopathy. OPERATIVE PROCEDURE: Exploratory laparotomy, lysis of adhesions with excisional biopsy of mesenteric lymph node. IV FLUIDS: 3500 cc of crystalloid. ESTIMATED BLOOD LOSS: Less than 50 cc. SPECIMENS: Mesenteric lymph node sent fresh to Pathology. WOUND CLASSIFICATION: I. DRAINS: None. COMPLICATIONS: None. BRIEF HISTORY: Mr. Ghassan Uriostegui is an 88-year-old gentleman presented to the hospital, in the emergency room with a sudden onset of nausea, vomiting, abdominal distention, and abdominal pain. A CT scan of his abdomen and pelvis showed findings consistent with a small bowel obstruction. He had undergone an open appendectomy many years ago for acute perforated appendicitis. Also noted was some enlarged mesenteric lymph nodes. Over the course of the past several days, he has not improved with nonoperative management with nasogastric tube, decompression and IV fluids and we kept n.p.o. After a long discussion with the patient and his significant other, recommendation has been made to take him to the operating room for exploratory laparotomy for treatment of his small bowel obstruction. The procedure was discussed with the patient, and the risks of, but not limited to, bleeding, infection, intraabdominal abscess formation, injury to peritoneal and retroperitoneal structures, possibility of a bowel resection with ostomy, the risk of sepsis, risk of general anesthesia and deep vein thrombosis were all explained. DESCRIPTION OF PROCEDURE: Written informed consent was obtained, the abdomen was marked with indelible ink and preoperative antibiotics were administered. The patient was taken to the operating room and placed in a supine position. Sequential compression devices and a warming blanket were applied. General anesthesia was administered. A Chandler catheter was inserted. The abdomen was prepped and draped in the usual sterile fashion. Time-out verification was completed. Midline incision was then made centered around the umbilicus and the peritoneal cavity was entered under direct vision. There was some thin yellowish serous fluid in the abdomen and this was nonodorous. It was obvious that there was proximally distended small bowel, this was able to be followed down into the right lower quadrant. The patient had undergone an appendectomy many years ago through a right lower transverse incision. There were adhesions in this area from the small bowel to the anterior abdominal wall. These were taken down sharply. With further dissection lower down into the right, there was an apparent band causing an internal hernia and a loop of small bowel was trapped up underneath the cecum. This band was lysed and some of the surrounding scar tissue was excised to reduce the bowel and this was the area of the clear delineation between proximally distended and distally collapsed bowel. There were some " imprints" on the bowel from the band, but these were viable and I did not feel resection was necessary. However, I did imbricate one area of the small bowel with several 3-0 interrupted silk sutures over a portion of the imprint. The remainder of the small bowel and into the terminal ileum appeared to be unremarkable. The point of obstruction appeared to be about several feet proximal to the ileocecal valve. There was no other abnormality noted in the bowel and it was all viable. I did not evaluate the entire colon. The liver was somewhat nodular. The nasogastric tube was felt and it was in good position in the stomach. Attention was then turned to the mesentery where there was noted to be some enlarged lymph nodes. About in the mid small bowel area, there was an easily palpable 1.5 cm node that was easily excised using cautery and this was sent to Pathology fresh and hemostasis was assured at the biopsy site. There were several smaller lymph nodes noted, but these did not appear to be pathologic, were easily movable and quite discrete. The abdomen was irrigated. Hemostasis was assured. All needle, sponge, and laparotomy pad counts were reported as correct. The midline incision was closed with interrupted #1 Vicryl suture. The skin was approximated with stapling device. Dry sterile dressings were applied. The patient tolerated the procedure well and was taken to the recovery room in stable condition. [id number]/[facility] #: [id number] [facility]ICAL CENTERLupe
[2018-12-21] MEDS: Morphine INJ* 2 MG/ML 1 ML SYRINGE (TWO MG - NEW SYRINGE VERSION) IV PRN ×4 (04:31→23:28)
[2018-12-21] MEDS: metroNIDAZOLE IV 500 MG/100ML* 500 MG/100 ML BAG IVPB SCH ×2 (04:31→18:28)
[2018-12-21] MEDS: Heparin VIAL(*) 5000 UNITS/ML VIAL (FIVE THOUSAND) SUBCUT SCH ×3 (08:58→23:36)
[2018-12-21] MEDS: Famotidine IV* 10 MG/ML 2 ML (20 mg) IV SLOW PU SCH ×2 (08:58→19:57)
[2018-12-21 09:41] LABS: ABS Basophils 0.1 10^3/ul (0-0.2); ABS Lymphocytes 3.4 10^3/ul (1.0-4.8); ABS Monocytes 1.1 10^3/ul (0-0.8); Eosinophil % 0.1 %; Hematocrit 38 % (42-52); Hemoglobin 12.6 g/dL (14.0-18.0); Lymphocyte % 23.3 %; Mean Corpuscular HGB Conc 33 g/dL (31-36); Mean Corpuscular Hemoglobin 31 pg (27-31); Mean Corpuscular Volume 93 fL (80-94); Mean Platelet Volume 10.6 fL (7.4-10.4); Nucleated Red Blood Cells % 0.2; Platelet Count 281 10^3/uL (150-450); Red Blood Count 4.05 10^6 /uL (4.18-5.48); Red Cell Distribution Width 13 % (10-15); White Blood Count 14.6 10^3/uL (3.5-10.8)
[2018-12-21 09:57] LABS: BUN/Creatinine Ratio 21.4 (8-20); Calcium 7.8 mg/dL (8.6-10.3); EGFR African American 104.8 (>60); EGFR Non-African American 86.6 (>60); Potassium 3.8 mmol/L (3.5-5.0)
--- NOTE | 2018-12-21 11:03 | PN ---
Date of Service: 12/21/18 Critical Care Services: Extubated in AM Oxygenating well Appears to have swallow issues Vital Signs: Temp Pulse Resp BP SpO2 FiO2 99.5 F 106 23 156/80 96 40 12/21/18 07:30 12/21/18 10:30 12/21/18 10:34 12/21/18 10:30 12/21/18 10:30 12/21 08:20 Physical Exam: Gen: AO times 3 Lungs: CTA. Upper throat area decreased air entry Cardiac: RRR Abdomen: Decreased BS's. Soft, NTP Extremities: No ARON Neuro: Moving all extremities Fluid Balance (Past 24 Hours): I= O= Net Intake & Output 12/19/18 12/20/18 12/21/18 12/22/18 06:59 06:59 06:59 06:59 Intake Total 3159 2173 877 Output Total 745 1650 520 165 Balance 2414 523 357 -165 Weight 178 lb 178 lb Intake: IV Fluids 3159 2173 724 ABX - FLAGYL 107 107 D5W 1/2 NS 2947 1960 724 ceftriaxone 105 106 Medicated IV 98 propofol 98 Oral 0 0 Chandler Irrigate Amount 55 Output: NG Tube Drainage Amount 600 1450 Urine 145 200 Chandler 520 165 Other: Estimated Void Medium Medium # Bowel Movements 0 # Voids 1 1 Labs: Laboratory Results - last 24 hr 12/21/18 12/21/18 12/21/18 06:27 09:15 09:15 WBC 14.6 H RBC 4.05 L Hgb 12.6 L Hct 38 L MCV 93 MCH 31 MCHC 33 RDW 13 Plt Count 281 MPV 10.6 H Neut % (Auto) 68.6 Lymph % (Auto) 23.3 [place] % (Auto) 7.6 Eos % (Auto) 0.1 Baso % (Auto) 0.4 Absolute Neuts (auto) 10.0 H Absolute Lymphs (auto) 3.4 Absolute Monos (auto) 1.1 H Absolute Eos (auto) 0.0 Absolute Basos (auto) 0.1 Absolute Nucleated RBC 0.0 Nucleated RBC % 0.2 Patient Temperature 98.3 ABG pH 7.43 ABG pH (Temp Correct) Not Reportable ABG pCO2 39 ABG pCO2 (Temp Corrct Not Reportable ABG pO2 98 ABG pO2 (Temp Correct Not Reportable ABG HCO3 26.1 ABG O2 Saturation 98.6 H ABG Base Excess 1.5 Respiration Rate 15 O2 Delivery Device ventilator Ventilator Type 400 Vent Mode cmv FiO2 40 Inspiratory Time Not Reportable PEEP 5 Pressure Support Not Reportable Pressure Control Not Reportable EPAP Not Reportable IPAP Not Reportable BiPAP Not Reportable Sodium 135 Potassium 3.8 Chloride 103 Carbon Dioxide 29 Anion Gap 3 BUN 18 Creatinine 0.84 Est GFR ( Amer) 104.8 Est GFR (Non-Af Amer) 86.6 BUN/Creatinine Ratio 21.4 H Glucose 140 H Calcium 7.8 L Impression: s/p lysis of adhesions s/p ARF post extubation probable aspiration Plan: continue ABX for aspiration PNA needs speech and swallow evaluation OOB to chair and PT/OT incentive spirometry Critical Care Time: 45
--- NOTE | 2018-12-21 11:11 | PN ---
Progress Note - Progress Note Date of Service: 12/21/18 SOAP: Subjective: Extubated this morning Pain adequately controlled No N/V Objective: Temp Pulse Resp BP Pulse Ox 99.5 F 106 23 156/80 96 12/21/18 07:30 12/21/18 10:30 12/21/18 10:34 12/21/18 10:30 12/21/18 10:30 Intake & Output 12/19/18 12/20/18 12/21/18 12/22/18 06:59 06:59 06:59 06:59 Intake Total 3159 2173 877 Output Total 745 1650 520 165 Balance 2414 523 357 -165 Weight 178 lb 178 lb Intake: IV Fluids 3159 2173 724 ABX - FLAGYL 107 107 D5W 1/2 NS 2947 1960 724 ceftriaxone 105 106 Medicated IV 98 propofol 98 Oral 0 0 Chandler Irrigate Amount 55 Output: NG Tube Drainage Amount 600 1450 Urine 145 200 Chandler 520 165 Other: Estimated Void Medium Medium # Bowel Movements 0 # Voids 1 1 PEX: Comfortable-awake and alert Lungs with rhonchi, upper respiratory Abd is soft and non-distended. Few bowel sounds present. Dressing intact. Laboratory Results - last 24 hr 12/21/18 12/21/18 12/21/18 06:27 09:15 09:15 WBC 14.6 H RBC 4.05 L Hgb 12.6 L Hct 38 L MCV 93 MCH 31 MCHC 33 RDW 13 Plt Count 281 MPV 10.6 H Neut % (Auto) 68.6 Lymph % (Auto) 23.3 [place] % (Auto) 7.6 Eos % (Auto) 0.1 Baso % (Auto) 0.4 Absolute Neuts (auto) 10.0 H Absolute Lymphs (auto) 3.4 Absolute Monos (auto) 1.1 H Absolute Eos (auto) 0.0 Absolute Basos (auto) 0.1 Absolute Nucleated RBC 0.0 Nucleated RBC % 0.2 Patient Temperature 98.3 ABG pH 7.43 ABG pH (Temp Correct) Not Reportable ABG pCO2 39 ABG pCO2 (Temp Corrct Not Reportable ABG pO2 98 ABG pO2 (Temp Correct Not Reportable ABG HCO3 26.1 ABG O2 Saturation 98.6 H ABG Base Excess 1.5 Respiration Rate 15 O2 Delivery Device ventilator Ventilator Type 400 Vent Mode cmv FiO2 40 Inspiratory Time Not Reportable PEEP 5 Pressure Support Not Reportable Pressure Control Not Reportable EPAP Not Reportable IPAP Not Reportable BiPAP Not Reportable Sodium 135 Potassium 3.8 Chloride 103 Carbon Dioxide 29 Anion Gap 3 BUN 18 Creatinine 0.84 Est GFR ( Amer) 104.8 Est GFR (Non-Af Amer) 86.6 BUN/Creatinine Ratio 21.4 H Glucose 140 H Calcium 7.8 L Assessment: POD# 1 s/p exlap with lysis of adhesions, mesenteric lymph node biopsy for SBO Aspiration pneumonia Extubated this morning Plan: Continue NGT until ileus resolves OOB and pulmonary toilet IV abx PPI and subq heparin Keep in ICU today Appreciate Care Specialist care. Findings from OR discussed with patient and his significant other.
[2018-12-21] MEDS: LORazepam INJ* 2 MG/ML 1 ML VIAL IV PUSH PRN (13:26)
[2018-12-21] MEDS: cefTRIAXone(*) 2 GM in NS 0.9% 100 ML* 100 ML IVPB SCH (16:56)
[2018-12-21] MEDS ORDERED: LORazepam INJ* 2 MG/ML 1 ML VIAL IV PUSH ONE (17:54)
[2018-12-22] MEDS: LORazepam INJ* 2 MG/ML 1 ML VIAL IV PUSH PRN ×2 (01:09→15:56)
[2018-12-22] MEDS: metroNIDAZOLE IV 500 MG/100ML* 500 MG/100 ML BAG IVPB SCH ×2 (04:10→17:35)
[2018-12-22 04:11] LABS: Hematocrit 39 % (42-52); Hemoglobin 12.9 g/dL (14.0-18.0); Mean Corpuscular HGB Conc 33 g/dL (31-36); Mean Corpuscular Hemoglobin 32 pg (27-31); Mean Corpuscular Volume 94 fL (80-94); Mean Platelet Volume 10.2 fL (7.4-10.4); Platelet Count 279 10^3/uL (150-450); Red Cell Distribution Width 13 % (10-15); White Blood Count 15.5 10^3/uL (3.5-10.8)
[2018-12-22] MEDS: Morphine INJ* 2 MG/ML 1 ML SYRINGE (TWO MG - NEW SYRINGE VERSION) IV PRN (04:40)
[2018-12-22 04:41] LABS: Albumin 2.9 g/dL (3.2-5.2); Albumin/Globulin Ratio 1.5 (1-3); BUN/Creatinine Ratio 22.5 (8-20); Calcium 7.7 mg/dL (8.6-10.3); EGFR African American 110.9 (>60); EGFR Non-African American 91.7 (>60); Potassium 3.5 mmol/L (3.5-5.0); Total Bilirubin 1.7 mg/dL (0.2-1.0); Total Protein 4.9 g/dL (6.4-8.9)
[2018-12-22 04:58] LABS: ABS Basophils 0.1 10^3/ul (0-0.2); ABS Eosinophils 0.1 10^3/ul (0-0.6); ABS Lymphocytes 5.6 10^3/ul (1.0-4.8); ABS Monocytes 1.3 10^3/ul (0-0.8); ABS Neutrophils 8.4 10^3/ul (1.5-7.7); Eosinophil % 0.6 %; Lymphocyte % 36.3 %; Nucleated Red Blood Cells % 0.1
[2018-12-22] MEDS: D5W 1/2 NS 1000 ML BAG* 1,000 ML IV SCH ×2 (06:51→16:03)
[2018-12-22] MEDS: Heparin VIAL(*) 5000 UNITS/ML VIAL (FIVE THOUSAND) SUBCUT SCH ×3 (08:46→23:58)
[2018-12-22] MEDS: Famotidine IV* 10 MG/ML 2 ML (20 mg) IV SLOW PU SCH ×2 (08:47→22:11)
--- NOTE | 2018-12-22 10:58 | PN ---
Date of Service: 12/22/18 Critical Care Services: Critical Care Progress Note sitting up in bed oxygenation wnl undergoing PT/OT but needs assistance. may benefit from walker now with Bowel Sounds. No BM's. Pain controlled V Vital Signs: Temp Pulse Resp BP SpO2 FiO2 99 F 88 21 161/77 85 40 12/22/18 07:16 12/22/18 10:01 12/22/18 10:01 12/22/18 09:00 12/22/18 10:01 12/21 08:20 Physical Exam: Gen:Critical Care Progress Note Physical Exam: Gen: AO times 3 HEENT: EOMI Lungs: CTA B/L Cardiac: RRR Abdomen: +BS's, soft, NTP. No rebound or guarding Extremities: No ARON Neuro: No focal deficits Fluid Balance (Past 24 Hours): I= O= Net Intake & Output 12/20/18 12/21/18 12/22/18 12/23/18 06:59 06:59 06:59 06:59 Intake Total 2173 877 2603 Output Total 5360 762 6838 275 Balance 386 130 7488 -275 Weight 178 lb Intake: IV Fluids 2173 724 2288 ABX - FLAGYL 107 D5W 1/2 NS 2049 163 7602 ceftriaxone 106 IVPB 315 ABX - FLAGYL 315 ceftriaxone 0 magnesium 0 Medicated IV 98 propofol 98 Oral 0 Chandler Irrigate Amount 55 Output: NG Tube Drainage Amount 1450 300 Urine 200 Chandler 520 1185 275 Other: Estimated Void Medium # Voids 1 Labs: Laboratory Results - last 24 hr 12/19/18 12/20/18 12/22/18 17:43 16:30 04:00 WBC 15.5 H RBC 4.10 L Hgb 12.9 L Hct 39 L MCV 94 MCH 32 H MCHC 33 RDW 13 Plt Count 279 MPV 10.2 Neut % (Auto) 54.0 Lymph % (Auto) 36.3 [place] % (Auto) 8.5 Eos % (Auto) 0.6 Baso % (Auto) 0.6 Absolute Neuts (auto) 8.4 H Absolute Lymphs (auto) 5.6 H Absolute Monos (auto) 1.3 H Absolute Eos (auto) 0.1 Absolute Basos (auto) 0.1 Absolute Nucleated RBC 0.0 Nucleated RBC % 0.1 Sodium Potassium Chloride Carbon Dioxide Anion Gap BUN Creatinine Est GFR ( Amer) Est GFR (Non-Af Amer) BUN/Creatinine Ratio Glucose Calcium Total Bilirubin AST ALT Alkaline Phosphatase Total Protein Albumin Globulin Albumin/Globulin Ratio Jaaq-0-Rakelcdqyrtlp 2.86 H Flow Intrp 2-8 Markers TNP Flow Intrp 9-15 Marker Flow Intrp 16+ Markers TNP 12/22/18 04:00 WBC RBC Hgb Hct MCV MCH MCHC RDW Plt Count MPV Neut % (Auto) Lymph % (Auto) [place] % (Auto) Eos % (Auto) Baso % (Auto) Absolute Neuts (auto) Absolute Lymphs (auto) Absolute Monos (auto) Absolute Eos (auto) Absolute Basos (auto) Absolute Nucleated RBC Nucleated RBC % Sodium 136 Potassium 3.5 Chloride 102 Carbon Dioxide 30 Anion Gap 4 BUN 18 Creatinine 0.80 Est GFR ( Amer) 110.9 Est GFR (Non-Af Amer) 91.7 BUN/Creatinine Ratio 22.5 H Glucose 118 H Calcium 7.7 L Total Bilirubin 1.70 H AST 56 H ALT 29 Alkaline Phosphatase 134 H Total Protein 4.9 L Albumin 2.9 L Globulin 2.0 Albumin/Globulin Ratio 1.5 Mrky-1-Skrjxytpcjmdu Flow Intrp 2-8 Markers Flow Intrp 9-15 Marker Flow Intrp 16+ Markers Impression: Impression: s/p lysis of adhesions s/p mechanical ventilation post-op aspiration PNA ileus anemia Plan: continue ABX Once NGT out would do speech and swallow evaluation advance diet as per surgery incentive spirometry OOB to chair and continue PT. May need placement Critical Care Time:45 Plan: Critical Care Time:
[2018-12-22] MEDS ORDERED: Morphine 4 MG/ML VIAL (1 ml) 4 MG/ML VIAL IV PRN (12:10)
[2018-12-22] MEDS ORDERED: LORazepam INJ* 2 MG/ML 1 ML VIAL IV PUSH PRN (12:10)
--- NOTE | 2018-12-22 12:26 | PN ---
Progress Note - Progress Note Date of Service: 12/22/18 SOAP: Subjective: OOB and appears comfortable No flatus or BM Minimal NGT output Objective: Temp Pulse Resp BP Pulse Ox 99 F 89 18 154/80 97 12/22/18 07:16 12/22/18 12:00 12/22/18 12:00 12/22/18 12:00 12/22/18 12:00 Intake & Output 12/20/18 12/21/18 12/22/18 12/23/18 06:59 06:59 06:59 06:59 Intake Total 2173 877 2603 Output Total 9261 998 6909 325 Balance 928 960 5229 -325 Weight 178 lb Intake: IV Fluids 2173 724 2288 ABX - FLAGYL 107 D5W 1/2 NS 6470 707 7517 ceftriaxone 106 IVPB 315 ABX - FLAGYL 315 ceftriaxone 0 magnesium 0 Medicated IV 98 propofol 98 Oral 0 Chandler Irrigate Amount 55 Output: NG Tube Drainage Amount 1450 300 Urine 200 Chandler 520 1185 325 Other: Estimated Void Medium # Voids 1 PEX: Awake and alert in chair-comfortable Lungs with some expiratory rhonchi Abd is soft and slightly distended. Few bowel sounds present, very hypoactive. Incision is CDI Ext without edema Laboratory Results - last 24 hr 12/19/18 12/20/18 12/22/18 17:43 16:30 04:00 WBC 15.5 H RBC 4.10 L Hgb 12.9 L Hct 39 L MCV 94 MCH 32 H MCHC 33 RDW 13 Plt Count 279 MPV 10.2 Neut % (Auto) 54.0 Lymph % (Auto) 36.3 [place] % (Auto) 8.5 Eos % (Auto) 0.6 Baso % (Auto) 0.6 Absolute Neuts (auto) 8.4 H Absolute Lymphs (auto) 5.6 H Absolute Monos (auto) 1.3 H Absolute Eos (auto) 0.1 Absolute Basos (auto) 0.1 Absolute Nucleated RBC 0.0 Nucleated RBC % 0.1 Sodium Potassium Chloride Carbon Dioxide Anion Gap BUN Creatinine Est GFR ( Amer) Est GFR (Non-Af Amer) BUN/Creatinine Ratio Glucose Calcium Total Bilirubin AST ALT Alkaline Phosphatase Total Protein Albumin Globulin Albumin/Globulin Ratio Ydcb-2-Tezlvaezjjlrg 2.86 H Flow Intrp 2-8 Markers TNP Flow Intrp 9-15 Marker Flow Intrp 16+ Markers TNP 12/22/18 04:00 WBC RBC Hgb Hct MCV MCH MCHC RDW Plt Count MPV Neut % (Auto) Lymph % (Auto) [place] % (Auto) Eos % (Auto) Baso % (Auto) Absolute Neuts (auto) Absolute Lymphs (auto) Absolute Monos (auto) Absolute Eos (auto) Absolute Basos (auto) Absolute Nucleated RBC Nucleated RBC % Sodium 136 Potassium 3.5 Chloride 102 Carbon Dioxide 30 Anion Gap 4 BUN 18 Creatinine 0.80 Est GFR ( Amer) 110.9 Est GFR (Non-Af Amer) 91.7 BUN/Creatinine Ratio 22.5 H Glucose 118 H Calcium 7.7 L Total Bilirubin 1.70 H AST 56 H ALT 29 Alkaline Phosphatase 134 H Total Protein 4.9 L Albumin 2.9 L Globulin 2.0 Albumin/Globulin Ratio 1.5 Gltg-0-Igzvnpgjalgpq Flow Intrp 2-8 Markers Flow Intrp 9-15 Marker Flow Intrp 16+ Markers Assessment: POD# 2 s/p exlap for lysis of adhesions for SBO Post-op ileus Aspiration pneumonia Deconditioning Plan: Transfer to floor-discussed with Dr. Hall and he feels patient ready for transfer D/C NGT-keep NPO for now, will do better from respiratory status with tube out IV abx for pneumonia Increase activity-pulmonary toilet PPI and subq heparin Hospitalist to follow-communicated with Dr. Henao re: transfer Labs in AM
[2018-12-22 16:31] LABS: Albumin 2.7 g/dL (3.4-4.7); Albumin/Globulin Ratio 0.98; Gamma Globulin 0.6 g/dL (0.6-1.6); Total Protein(PEP) 5.5 g/dL (6.3 - 7.9)
[2018-12-22] MEDS: cefTRIAXone(*) 2 GM in NS 0.9% 100 ML* 100 ML IVPB SCH (16:57)
[2018-12-23] MEDS: Morphine INJ* 2 MG/ML 1 ML SYRINGE (TWO MG - NEW SYRINGE VERSION) IV PRN ×3 (00:55→20:26)
[2018-12-23] MEDS: D5W 1/2 NS 1000 ML BAG* 1,000 ML IV SCH ×2 (03:13→20:25)
[2018-12-23] MEDS: metroNIDAZOLE IV 500 MG/100ML* 500 MG/100 ML BAG IVPB SCH ×2 (05:23→18:28)
[2018-12-23 06:07] LABS: Hematocrit 35 % (42-52); Hemoglobin 11.7 g/dL (14.0-18.0); Mean Corpuscular HGB Conc 33 g/dL (31-36); Mean Corpuscular Hemoglobin 31 pg (27-31); Mean Corpuscular Volume 95 fL (80-94); Red Blood Count 3.73 10^6 /uL (4.18-5.48); Red Cell Distribution Width 13 % (10-15); White Blood Count 12.7 10^3/uL (3.5-10.8)
[2018-12-23 06:12] LABS: BUN/Creatinine Ratio 14.3 (8-20); Calcium 7.6 mg/dL (8.6-10.3); EGFR African American 115.9 (>60); EGFR Non-African American 95.8 (>60); Magnesium 1.9 mg/dL (1.9-2.7); Potassium 3.6 mmol/L (3.5-5.0)
[2018-12-23 06:33] LABS: Mean Platelet Volume 10.4 fL (7.4-10.4); Platelet Count 239 10^3/uL (150-450)
--- NOTE | 2018-12-23 07:52 | PN ---
Subjective Date of Service: 12/23/18 Interval History: POD#3 on 12/23 status post exploratory laparatomy with lyisis of adhesion for SBO 88 M PMH HTN, BPH, panic disorder, recently admitted at outside hospital for high grade AVB s/p PPM d/c to rehab facility readmitted with high grade SBO, found to also have incidental diffuse LAD, c/b aspiration pneumonitis/PNA with no response in conservative mgmt. underwent exploratory lapratomy;pod 3; transferred from ICU. Current issue: post op ileus; aspiration pneumonia Overnight events: NO acute events; leaking kathleen's VS; hypertensive; on 2 L of O2 No complaint at present. No BM since surgery. Objective Active Medications: Acetaminophen (Tylenol Supp*) 650 mg MT Q6H PRN PRN Reason: TEMPERATURE > 100.4 Last Admin: 12/21/18 12:47 Dose: 650 mg Famotidine (Pepcid Iv*) 20 mg IV SLOW PU BID [facility] Last Admin: 12/22/18 22:11 Dose: 20 mg Heparin Sodium (Porcine) (Heparin Vial(*)) 5,000 units SUBCUT Q8H [facility] Last Admin: 12/22/18 23:58 Dose: 5,000 units Hydralazine HCl (Apresoline Iv*) 5 mg IV SLOW PU Q6H PRN PRN Reason: SPB > 180 Metronidazole/Sodium Chloride (Flagyl 500 Mg Ivpb*) 500 mg in 100 mls @ 100 mls /hr IVPB Q12H [facility] Last Admin: 12/23/18 05:23 Dose: 100 mls/hr Ceftriaxone Sodium 2 gm/ (Sodium Chloride) 100 mls @ 200 mls/hr IVPB Q24H [facility] Last Admin: 12/22/18 16:57 Dose: 200 mls/hr Dextrose/Sodium Chloride (D5w 1/2 Ns 1000 Ml Bag*) 1,000 mls @ 100 mls/hr IV PER RATE [facility] Last Admin: 12/23/18 03:13 Dose: 100 mls/hr Lorazepam (Ativan Inj*) 1 mg IV PUSH Q12H PRN PRN Reason: ANXIETY Last Admin: 12/23/18 03:25 Dose: 1 mg Miscellaneous (Ativan Pyxis Cash) 1 ea N/A .ATIVAN IV CASH PRN PRN Reason: PYXIS CASH Morphine Sulfate (Morphine 4 Mg/Ml Vial (1 Ml)) 4 mg IV Q4H PRN PRN Reason: PAIN-MILD TO MODERATE Ondansetron HCl (Zofran Inj*) 4 mg IV Q4H PRN PRN Reason: NAUSEA/VOMITING Vital Signs - 8 hr 12/23/18 12/23/18 12/23/18 00:55 02:12 03:23 Temperature 98.1 F Pulse Rate 87 Respiratory 18 16 16 Rate Blood Pressure 166/77 (mmHg) O2 Sat by Pulse 96 Oximetry 12/23/18 12/23/18 12/23/18 03:25 04:26 07:26 Temperature 97.6 F Pulse Rate 92 Respiratory 16 16 16 Rate Blood Pressure 174/83 (mmHg) O2 Sat by Pulse 100 Oximetry Oxygen Devices in Use Now: Nasal Cannula Exam: Patient is lying on a bed with nasal canula HEENT: NOrmocephalic and atraumatic Lungs: crackles heard on both lungs; right>left Heart: S1/S2 heard with no murmur Abdomen: Soft and nondistended. Clean dressing on midline abdomen Extremities: No swelling or cyanosis Neuro: looks drowsy; answers questions; alert, conscious and oriented Result Diagrams: 12/23/18 05:33 12/23/18 05:33 Additional Lab and Data: Microbiology and Other Data: Microbiology 12/16/18 09:40 Stool Occult Blood (GURVINDER) - Final Stool 12/16/18 07:18 Nasal Screen MRSA (PCR) - Final Nasal Mrsa Not Detected Assess/Plan/Problems-Billing Assessment: 88 M PMH HTN, BPH, panic disorder, recently admitted at outside hospital for high grade AVB s/p PPM d/c to rehab facility readmitted with high grade SBO, found to also have incidental diffuse LAD, c/b aspiration pneumonitis/PNA(day 7 of iv abx) with no response in conservative mgmt; s/p exp laparotomy POD#3 with post op ileus. - Patient Problems (1) Small bowel obstruction Current Visit: Yes Status: Acute Code(s): K56.609 - UNSP INTESTNL OBST, UNSP TO PARTIAL VERSUS COMPLETE OBST SNOMED Code(s): 469551596 Comment: due to adhesion from prior surgery S/P exp laparotomy; pod #3 NO BM yet; absent bowel sound NPO; IV fluids Kathleen and NG out (2) Lymphadenopathy Current Visit: Yes Status: Acute Code(s): R59.1 - GENERALIZED ENLARGED LYMPH NODES SNOMED Code(s): 71983776 Comment: - B cell lymphoma, marginal zone type, low grade - mesentric lymph node biopsy done intraoperatively -will consult hem/oncology (3) Aspiration pneumonitis Current Visit: Yes Status: Acute Code(s): J69.0 - PNEUMONITIS DUE TO INHALATION OF FOOD AND VOMIT SNOMED Code(s): 834737073 Comment: -WBC count decreasing - vs PNA, given elevated WBC, covering with IV Flagyl, CTX (Day 7 on 12/23); will stop tomorrow. - 2/2 to poor mgmt of abdominal contents (4) Hypertension Current Visit: Yes Status: Acute Code(s): I10 - ESSENTIAL (PRIMARY) HYPERTENSION SNOMED Code(s): 86028075 Comment: - Oral med on hold; BP controlled. - IV hydralazine PRN (5) Hyperlipidemia Current Visit: Yes Status: Acute Code(s): E78.5 - HYPERLIPIDEMIA, UNSPECIFIED SNOMED Code(s): 47668150 Comment: - Holding atorvastatin while NPO (6) Complete heart block Current Visit: Yes Status: Acute Code(s): I44.2 - ATRIOVENTRICULAR BLOCK, COMPLETE SNOMED Code(s): 97346105 Comment: - d/c on 12/14 from PPM being placed at [facility], HR paced (7) Elevated TSH Current Visit: Yes Status: Acute Code(s): R79.89 - OTHER SPECIFIED ABNORMAL FINDINGS OF BLOOD CHEMISTRY SNOMED Code(s): 999175708 Comment: - Subclinical hypothyroidism diagnosed at [facility], can be FU outpt (8) DVT prophylaxis Current Visit: Yes Status: Acute Code(s): Z29.9 - ENCOUNTER FOR PROPHYLACTIC MEASURES, UNSPECIFIED SNOMED Code(s): 287225073 Comment: On lovenox (9) Full code status Current Visit: Yes Status: Acute Code(s): Z78.9 - OTHER SPECIFIED HEALTH STATUS SNOMED Code(s): 447107371 Comment: - Reconfirmed with patient Status and Disposition: Inpatient. surgery following Attending: Nadia Henao Attestation Documenting Resident: Bree He Supervising Physician: Nadia Henao Attestation: This service has been performed in part by a resident under the direction of a teaching physician.I, Nadia Henao, performed the service, or was physically present during the critical, or cash portions of the service, furnished by the resident. I participated in the management of the patient.
[2018-12-23] MEDS: Famotidine IV* 10 MG/ML 2 ML (20 mg) IV SLOW PU SCH ×2 (08:28→20:26)
[2018-12-23] MEDS: Heparin VIAL(*) 5000 UNITS/ML VIAL (FIVE THOUSAND) SUBCUT SCH (08:29)
[2018-12-23] MEDS ORDERED: KCL 20 MEQ/100 ML IVPREMIX* 20 MEQ/100 ML BAG IV ONE (09:21)
--- NOTE | 2018-12-23 11:47 | PN ---
Progress Note - Progress Note Date of Service: 12/23/18 SOAP: Subjective: Fatigues this morning but no shortness of breath Pain is minimal No N/V, no flatus or BM Objective: Temp Pulse Resp BP Pulse Ox 97.6 F 92 18 174/83 100 12/23/18 07:26 12/23/18 07:26 12/23/18 07:35 12/23/18 07:26 12/23/18 07:26 Intake & Output 12/21/18 12/22/18 12/23/18 12/24/18 06:59 06:59 06:59 06:59 Intake Total 877 2603 2012 Output Total 520 1485 3700 300 Balance 357 1118 -1687 -300 Weight 178 lb Intake: IV Fluids 724 2288 1898 D5W 1/2 NS 724 2288 1898 IVPB 315 115 ABX - FLAGYL 315 115 ceftriaxone 0 magnesium 0 Medicated IV 98 propofol 98 Oral 0 Kathleen Irrigate Amount 55 Output: NG Tube Drainage Amount 300 100 Kathleen 520 1185 3600 300 Other: Estimated Void Medium # Voids 1 PEX: Comfortable-awake and alert, appropriate Abd is soft and slightly distended. Dressing intact. Few bowel sounds are present. Laboratory Results - last 24 hr 12/19/18 12/23/18 12/23/18 17:43 05:33 05:33 WBC 12.7 H RBC 3.73 L Hgb 11.7 L Hct 35 L MCV 95 H MCH 31 MCHC 33 RDW 13 Plt Count 239 MPV 10.4 Sodium 138 Potassium 3.6 Chloride 104 Carbon Dioxide 30 Anion Gap 4 BUN 11 Creatinine 0.77 Est GFR ( Amer) 115.9 Est GFR (Non-Af Amer) 95.8 BUN/Creatinine Ratio 14.3 Glucose 125 H Calcium 7.6 L Magnesium 1.9 Total Protein (PEP) 5.5 L Albumin (PEP) 2.7 L Albumin/Globulin (PEP) 0.98 Sjxsl-7-Limcbuwvv 0.4 H Goaee-6-Maqyrnlcd 0.9 Tysk-8-Tjiuzojx 0.9 Gamma Globulins 0.6 PEP Impression See comment Assessment: POD# 3 s/p exlap lysis of adhesions for SBO Post op ileus Aspiration pneumonia Deconditioning Labs noted Plan: Continue with ice chips only until resolution of ileus Decrease IVF-appears to be mobilizing fluid IV abx Pulmonary toilet D/C kathleen PPI and subq heparin Increase activity, PT
[2018-12-23] MEDS: LORazepam INJ* 2 MG/ML 1 ML VIAL IV PUSH PRN (16:17)
[2018-12-23] MEDS: cefTRIAXone(*) 2 GM in NS 0.9% 100 ML* 100 ML IVPB SCH (17:31)
[2018-12-23] MEDS: Enoxaparin(*) 40 MG/0.4 ML SYR SUBCUT SCH (20:28)
[2018-12-24] MEDS: Morphine INJ* 2 MG/ML 1 ML SYRINGE (TWO MG - NEW SYRINGE VERSION) IV PRN ×3 (00:32→10:47)
[2018-12-24] MEDS: LORazepam INJ* 2 MG/ML 1 ML VIAL IV PUSH PRN ×3 (04:31→18:09)
[2018-12-24] MEDS: metroNIDAZOLE IV 500 MG/100ML* 500 MG/100 ML BAG IVPB SCH (04:33)
[2018-12-24 06:24] LABS: ABS Basophils 0.1 10^3/ul (0-0.2); ABS Eosinophils 0.2 10^3/ul (0-0.6); ABS Lymphocytes 4.9 10^3/ul (1.0-4.8); ABS Monocytes 1.3 10^3/ul (0-0.8); ABS Neutrophils 7.1 10^3/ul (1.5-7.7); Eosinophil % 1.3 %; Hematocrit 39 % (42-52); Hemoglobin 12.9 g/dL (14.0-18.0); Lymphocyte % 35.9 %; Mean Corpuscular HGB Conc 33 g/dL (31-36); Mean Corpuscular Hemoglobin 31 pg (27-31); Mean Corpuscular Volume 94 fL (80-94); Mean Platelet Volume 10.1 fL (7.4-10.4); Nucleated Red Blood Cells % 0.2; Platelet Count 295 10^3/uL (150-450); Red Blood Count 4.09 10^6 /uL (4.18-5.48); Red Cell Distribution Width 13 % (10-15); White Blood Count 13.7 10^3/uL (3.5-10.8)
[2018-12-24] MEDS: Ondansetron INJ* 2 MG/ML VIAL IV PRN ×2 (06:29→10:46)
[2018-12-24 06:37] LABS: BUN/Creatinine Ratio 13.6 (8-20); Calcium 7.9 mg/dL (8.6-10.3); EGFR African American 109.3 (>60); EGFR Non-African American 90.4 (>60); Potassium 3.7 mmol/L (3.5-5.0)
--- NOTE | 2018-12-24 06:37 | PN ---
Subjective Date of Service: 12/24/18 Interval History: POD#4 on 12/24( surgery on 12/20/2018) 88 M PMH HTN, BPH, panic disorder, recently admitted at outside hospital for high grade AVB s/p PPM d/c to rehab facility readmitted with high grade SBO, found to also have incidental diffuse LAD, c/b aspiration pneumonitis/PNA with no response in conservative mgmt. underwent exploratory laparotomy on 12/20/2018 Current issue: post op ileus No acute overnight events VS stable-although bp on higher side Patient bit more anxious about his diagnosis of lymphoma. Has some pain on incision site. No nausea or vomiting. Objective Active Medications: Acetaminophen (Tylenol Supp*) 650 mg MO Q6H PRN PRN Reason: TEMPERATURE > 100.4 Last Admin: 12/21/18 12:47 Dose: 650 mg Enoxaparin Sodium (Lovenox(*)) 40 mg SUBCUT BEDTIME [facility] Last Admin: 12/23/18 20:28 Dose: 40 mg Famotidine (Pepcid Iv*) 20 mg IV SLOW PU BID [facility] Last Admin: 12/23/18 20:26 Dose: 20 mg Hydralazine HCl (Apresoline Iv*) 5 mg IV SLOW PU Q6H PRN PRN Reason: SPB > 180 Dextrose/Sodium Chloride (D5w 1/2 Ns 1000 Ml Bag*) 1,000 mls @ 50 mls/hr IV PER RATE [facility] Last Admin: 12/23/18 20:25 Dose: 50 mls/hr Lorazepam (Ativan Inj*) 0.5 mg IV PUSH Q12H PRN PRN Reason: ANXIETY Last Admin: 12/24/18 04:31 Dose: 0.5 mg Miscellaneous (Ativan Pyxis Cash) 1 ea N/A .ATIVAN IV CASH PRN PRN Reason: PYXIS CASH Morphine Sulfate (Morphine Inj (Syringe))*) 2 mg IV Q4H PRN PRN Reason: PAIN-MILD TO MODERATE Last Admin: 12/24/18 06:29 Dose: 2 mg Ondansetron HCl (Zofran Inj*) 4 mg IV Q4H PRN PRN Reason: NAUSEA/VOMITING Last Admin: 12/24/18 06:29 Dose: 4 mg Vital Signs - 8 hr 12/24/18 12/24/18 12/24/18 00:28 00:30 00:32 Temperature 98.7 F Pulse Rate 90 Respiratory 17 16 Rate Blood Pressure 162/79 (mmHg) O2 Sat by Pulse 93 93 Oximetry 12/24/18 12/24/18 12/24/18 02:12 04:12 04:31 Temperature 97.7 F Pulse Rate 84 Respiratory 16 16 16 Rate Blood Pressure 151/76 (mmHg) O2 Sat by Pulse 95 Oximetry 12/24/18 12/24/18 05:39 06:29 Temperature Pulse Rate Respiratory 16 16 Rate Blood Pressure (mmHg) O2 Sat by Pulse Oximetry Oxygen Devices in Use Now: None Exam: Patient is sitting on a bed with no acute distress HEENT: Normocephalic and atraumatic Lungs: Crackles heard on b/l lung base Heart: S1/S2 heard with no murmur Abdomen: Dressing is not soaked. Incision site looks healthy;no redness or discharge. Bowel sound heard Extremities: No swelling or cyanosis Neuro: Alert, conscious and oriented. Moving all four extremity equally Result Diagrams: 12/25/18 06:03 12/25/18 09:40 Additional Lab and Data: Microbiology and Other Data: Microbiology 12/16/18 09:40 Stool Occult Blood (GURVINDER) - Final Stool 12/16/18 07:18 Nasal Screen MRSA (PCR) - Final Nasal Mrsa Not Detected Assess/Plan/Problems-Billing Assessment: 88 M PMH HTN, BPH, panic disorder, recently admitted at outside hospital for high grade AVB s/p PPM d/c to rehab facility readmitted with high grade SBO, found to also have incidental diffuse LAD, c/b aspiration pneumonitis/PNA( completed course of ceftriaxone and metronidazole) with no response in conservative mgmt; s/p exp laparotomy(on 12/20/2018) POD#4 with post op ileus. - Patient Problems (1) Small bowel obstruction Current Visit: Yes Status: Acute Code(s): K56.609 - UNSP INTESTNL OBST, UNSP TO PARTIAL VERSUS COMPLETE OBST SNOMED Code(s): 262086991 Comment: due to adhesion from prior surgery S/P exp laparotomy(on 12/20/2018) NO BM yet; passing flatus today; bowel sound present advancing diet as tolerated; feels hungry iv fluid (2) Lymphadenopathy Current Visit: Yes Status: Acute Code(s): R59.1 - GENERALIZED ENLARGED LYMPH NODES SNOMED Code(s): 81060715 Comment: - B cell lymphoma, marginal zone type, low grade - mesentric lymph node biopsy done intraoperatively -seen byr Dr. Farias; no any intervention at present as it is low grade. (3) Hypertension Current Visit: Yes Status: Acute Code(s): I10 - ESSENTIAL (PRIMARY) HYPERTENSION SNOMED Code(s): 79341323 Comment: - Oral med on hold; BP controlled. - IV hydralazine PRN (4) Hyperlipidemia Current Visit: Yes Status: Acute Code(s): E78.5 - HYPERLIPIDEMIA, UNSPECIFIED SNOMED Code(s): 58088183 Comment: Holding atorvastatin will start oce he tolerates po (5) Complete heart block Current Visit: Yes Status: Acute Code(s): I44.2 - ATRIOVENTRICULAR BLOCK, COMPLETE SNOMED Code(s): 65937917 Comment: - d/c on 12/14 from PPM being placed at [place], HR paced rolando removed on 12/23/2018 (6) Elevated TSH Current Visit: Yes Status: Acute Code(s): R79.89 - OTHER SPECIFIED ABNORMAL FINDINGS OF BLOOD CHEMISTRY SNOMED Code(s): 619169987 Comment: - Subclinical hypothyroidism diagnosed at [facility], can be FU outpt (7) DVT prophylaxis Current Visit: Yes Status: Acute Code(s): Z29.9 - ENCOUNTER FOR PROPHYLACTIC MEASURES, UNSPECIFIED SNOMED Code(s): 562243102 Comment: On lovenox (8) Full code status Current Visit: Yes Status: Acute Code(s): Z78.9 - OTHER SPECIFIED HEALTH STATUS SNOMED Code(s): 071885640 Comment: - Reconfirmed with patient Status and Disposition: Inpatient. surgery following; oncology following Attending: Nadia Henao Attestation Documenting Resident: Bree He Supervising Physician: Nadia Henao Attending/Supervising Physician Comment: Bowel sounds heard today. Pt with appetite. Will have small sips of clears, with likely progression of diet tomorrow. Pt told he has lymphoma. Seen by Onc today. Pending recs, but likely management will be outpatient. Attestation: This service has been performed in part by a resident under the direction of a teaching physician.I, Nadia Henao, performed the service, or was physically present during the critical, or cash portions of the service, furnished by the resident. I participated in the management of the patient.
[2018-12-24] MEDS: Famotidine IV* 10 MG/ML 2 ML (20 mg) IV SLOW PU SCH ×2 (08:06→22:22)
--- NOTE | 2018-12-24 09:29 | PN ---
Progress Note - Progress Note Date of Service: 12/24/18 SOAP: Subjective:no flatus;no n/v;minimal abd pain [] Objective: Vital Signs Temp 98.4 F 12/24/18 08:27 Pulse 85 12/24/18 08:27 Resp 16 12/24/18 08:27 BP 156/59 12/24/18 08:27 Pulse Ox 93 12/24/18 08:27 Intake & Output 12/23/18 12/24/18 12/24/18 18:59 06:59 18:59 Intake Total 0 1179 Output Total 300 0 Balance -300 1179 Intake: IV Fluids 1179 ABX - FLAGYL 209 D5W 1/2 NS 970 Oral 0 0 Output: Urine 0 Chandler 300 Other: Estimated Void Large Large # Voids 2 2 lungs:clear bilat;heart:RRR;abd:hypoactive bs,soft,nondistended;midline incision c/d/i with rolando,no infection,resolving ecchymosis;ext:nontender calves [] Assessment:POD#4 s/p ex lap for SBO;mesenteric lymph node bx revealed lymphoma; no flatus yet [] Plan:await improved GI function NPO ambulate Oncology to consult,patient aware of pathology results []
[2018-12-24] MEDS ORDERED: LORazepam INJ* 2 MG/ML 1 ML VIAL ONE (10:53)
--- NOTE | 2018-12-24 17:17 | PN ---
Progress Note - Progress Note Date of Service: 12/23/18 Note: Surgery Late entry (patient seen 12/23/18) S: patient had received a reminder from the cardiology team at [facility] that the rolando from his pacemaker placement were due to be removed. He is 13 days postop from that procedure. No c/o re: the site. O: Pacemaker site Left upper chest healing well, without evidence of infection or significant hematoma. There is some mild tenderness to palpation. A/P: pacemaker site healing well; rolando removed; steristrips placed; instructions reviewed w/ patient
[2018-12-24] MEDS: D5W 1/2 NS 1000 ML BAG* 1,000 ML IV SCH (17:51)
[2018-12-24] MEDS: Enoxaparin(*) 40 MG/0.4 ML SYR SUBCUT SCH (22:17)
[2018-12-25] MEDS: LORazepam INJ* 2 MG/ML 1 ML VIAL IV PUSH PRN ×4 (00:15→18:28)
[2018-12-25] MEDS: Morphine INJ* 2 MG/ML 1 ML SYRINGE (TWO MG - NEW SYRINGE VERSION) IV PRN ×4 (04:14→17:27)
--- NOTE | 2018-12-25 06:37 | PN ---
Subjective Date of Service: 12/25/18 Interval History: POD#5 on 12/25( surgery on 12/20/2018) 88 M PMH HTN, BPH, panic disorder, recently admitted at outside hospital for high grade AVB s/p PPM d/c to rehab facility readmitted with high grade SBO, found to also have incidental diffuse LAD, c/b aspiration pneumonitis/PNA with no response in conservative mgmt. underwent exploratory laparotomy on 12/20/2018 Current issue: post op ileus No acute overnight events VS stable Patient has mild abdominla pain around umbilicus. No nausea or vomiting. Passed flatus yesterday; no BM yet Objective Active Medications: Acetaminophen (Tylenol Supp*) 650 mg MT Q6H PRN PRN Reason: TEMPERATURE > 100.4 Last Admin: 12/21/18 12:47 Dose: 650 mg Enoxaparin Sodium (Lovenox(*)) 40 mg SUBCUT BEDTIME [facility] Last Admin: 12/24/18 22:17 Dose: 40 mg Famotidine (Pepcid Iv*) 20 mg IV SLOW PU BID [facility] Last Admin: 12/24/18 22:22 Dose: 20 mg Hydralazine HCl (Apresoline Iv*) 5 mg IV SLOW PU Q6H PRN PRN Reason: SPB > 180 Dextrose/Sodium Chloride (D5w 1/2 Ns 1000 Ml Bag*) 1,000 mls @ 50 mls/hr IV PER RATE [facility] Last Admin: 12/24/18 17:51 Dose: 50 mls/hr Lorazepam (Ativan Inj*) 0.5 mg IV PUSH Q6H PRN PRN Reason: ANXIETY Last Admin: 12/25/18 00:15 Dose: 0.5 mg Miscellaneous (Ativan Pyxis Cash) 1 ea N/A .ATIVAN IV CASH PRN PRN Reason: PYXIS CASH Morphine Sulfate (Morphine Inj (Syringe))*) 2 mg IV Q4H PRN PRN Reason: PAIN-MILD TO MODERATE Last Admin: 12/25/18 04:14 Dose: 2 mg Ondansetron HCl (Zofran Inj*) 4 mg IV Q4H PRN PRN Reason: NAUSEA/VOMITING Last Admin: 12/24/18 10:46 Dose: 4 mg Vital Signs - 8 hr 12/24/18 12/25/18 12/25/18 22:40 00:03 00:15 Temperature 98.3 F Pulse Rate 78 Respiratory 16 18 16 Rate Blood Pressure 144/66 (mmHg) O2 Sat by Pulse 95 Oximetry 12/25/18 12/25/18 12/25/18 03:48 04:14 05:11 Temperature 97.6 F Pulse Rate 83 Respiratory 18 16 16 Rate Blood Pressure 150/74 (mmHg) O2 Sat by Pulse 97 Oximetry 12/25/18 06:31 Temperature Pulse Rate Respiratory 16 Rate Blood Pressure (mmHg) O2 Sat by Pulse Oximetry Oxygen Devices in Use Now: None Exam: Patient is lying on a bed and is not in acute distress. HEENT: Normocephalic and atraumatic Lungs: crackles on b/l lower lung bases; R>L Heart: S1/S2 heard with no murmur Abdomen: Dressing wound dry; wound clean and no drainage. Mild tenderness around umbilicus. Bowel sound heard Extremitites: Normal Neuro: ALert, conscios and oriented. MOving all four extremities - Nutrition: Malnutrition Diagnosis/Plan Malnutrition Assessment by Registered Dietitian: Malnutrition Assessment Clinical Characteristics Acute,Moderate Malnutrition Assessment: - NPO x 8 days, so <75% of energy needs met for Criteria > 7 days - mild temporal wasting noted per visual assessment Malnutrition Assessment: 1. slowly progress diet per Surgery; sips of Interventions clear liquids today 2. replete serum electrolytes as appropriate per providers 3. maintain IVFs for adequate hydration Malnutrition Assessment: Goals 1. adequate intake to support hydration and lean body mass without significant wt change 2. glycemic control within inpatient parameters ; no s/sx hypo-hyperglycemia 3. maintain serum electrolytes WNL 4. regulation of bowel pattern; no c/o constipation (or diarrhea) Result Diagrams: 12/25/18 06:03 12/25/18 09:40 Additional Lab and Data: Microbiology and Other Data: Microbiology 12/16/18 09:40 Stool Occult Blood (GURVINDER) - Final Stool 12/16/18 07:18 Nasal Screen MRSA (PCR) - Final Nasal Mrsa Not Detected Assess/Plan/Problems-Billing Assessment: 88 M PMH HTN, BPH, panic disorder, recently admitted at outside hospital for high grade AVB s/p PPM d/c to rehab facility readmitted with high grade SBO, found to also have incidental diffuse LAD, c/b aspiration pneumonitis/PNA( completed course of ceftriaxone and metronidazole) with no response in conservative mgmt; s/p exp laparotomy(on 12/20/2018) POD#5 with post op ileus. - Patient Problems (1) Small bowel obstruction Current Visit: Yes Status: Acute Code(s): K56.609 - UNSP INTESTNL OBST, UNSP TO PARTIAL VERSUS COMPLETE OBST SNOMED Code(s): 253983722 Comment: due to adhesion from prior surgery S/P exp laparotomy(on 12/20/2018) NO BM yet; passing flatus today; bowel sound present advancing diet as tolerated; feels hungry iv fluid (2) Lymphadenopathy Current Visit: Yes Status: Acute Code(s): R59.1 - GENERALIZED ENLARGED LYMPH NODES SNOMED Code(s): 17026074 Comment: - B cell lymphoma, marginal zone type, low grade - mesentric lymph node biopsy done intraoperatively -seen byr Dr. Farias; no any intervention at present as it is low grade. (3) Hypertension Current Visit: Yes Status: Acute Code(s): I10 - ESSENTIAL (PRIMARY) HYPERTENSION SNOMED Code(s): 74679583 Comment: - Oral med on hold; BP controlled. - IV hydralazine PRN (4) Hyperlipidemia Current Visit: Yes Status: Acute Code(s): E78.5 - HYPERLIPIDEMIA, UNSPECIFIED SNOMED Code(s): 98277363 Comment: Holding atorvastatin will start oce he tolerates po (5) Complete heart block Current Visit: Yes Status: Acute Code(s): I44.2 - ATRIOVENTRICULAR BLOCK, COMPLETE SNOMED Code(s): 22512784 Comment: - d/c on 12/14 from PPM being placed at [place], HR paced rolando removed on 12/23/2018 (6) Elevated TSH Current Visit: Yes Status: Acute Code(s): R79.89 - OTHER SPECIFIED ABNORMAL FINDINGS OF BLOOD CHEMISTRY SNOMED Code(s): 519456565 Comment: - Subclinical hypothyroidism diagnosed at [facility], can be FU outpt (7) DVT prophylaxis Current Visit: Yes Status: Acute Code(s): Z29.9 - ENCOUNTER FOR PROPHYLACTIC MEASURES, UNSPECIFIED SNOMED Code(s): 166871449 Comment: On lovenox (8) Full code status Current Visit: Yes Status: Acute Code(s): Z78.9 - OTHER SPECIFIED HEALTH STATUS SNOMED Code(s): 825136910 Comment: - Reconfirmed with patient Status and Disposition: Inpatient. surgery following; oncology following Attending: Nadia Henao Attestation Documenting Resident: Bree He Supervising Physician: Nadia Henao Attending/Supervising Physician Comment: Tolerated sips of fluid. Thinks he is "ravenous" but isn't sure. Bowel sounds still hypoactive but better. Advancing diet. Attestation: This service has been performed in part by a resident under the direction of a teaching physician.I, Nadia Henao, performed the service, or was physically present during the critical, or cash portions of the service, furnished by the resident. I participated in the management of the patient.
[2018-12-25 06:44] LABS: CO2 Carbon Dioxide 22 mmol/L (22-32); Chloride 106 mmol/L (101-111); Sodium 136 mmol/L (135-145)
[2018-12-25 06:49] LABS: Blood Urea Nitrogen 12 mg/dL (6-24); EGFR African American 110.9 (>60); EGFR Non-African American 91.7 (>60); Glucose 107 mg/dL (70-100)
[2018-12-25 06:52] LABS: Anion Gap 8 mmol/L (2-11)
[2018-12-25 06:53] LABS: ABS Basophils 0.1 10^3/ul (0-0.2); ABS Eosinophils 0.2 10^3/ul (0-0.6); ABS Lymphocytes 4.4 10^3/ul (1.0-4.8); ABS Monocytes 1.1 10^3/ul (0-0.8); Eosinophil % 1.3 %; Hematocrit 40 % (42-52); Lymphocyte % 37.4 %; Mean Corpuscular HGB Conc 32 g/dL (31-36); Mean Corpuscular Hemoglobin 32 pg (27-31); Mean Corpuscular Volume 99 fL (80-94); Nucleated Red Blood Cells % 0.2; Platelet Count 258 10^3/uL (150-450); Red Blood Count 4.07 10^6 /uL (4.18-5.48); Red Cell Distribution Width 14 % (10-15); White Blood Count 11.8 10^3/uL (3.5-10.8)
[2018-12-25] MEDS: Famotidine IV* 10 MG/ML 2 ML (20 mg) IV SLOW PU SCH ×2 (09:04→21:11)
--- NOTE | 2018-12-25 10:52 | PN ---
Progress Note - Progress Note Date of Service: 12/25/18 SOAP: Subjective: []no flatus Objective: [] Temp Pulse Resp BP Pulse Ox 98.8 F 78 20 154/71 91 12/25/18 07:25 12/25/18 07:25 12/25/18 09:08 12/25/18 07:25 12/25/18 07:25 Laboratory Last Values WBC 11.8 10^3/uL (3.5-10.8) H 12/25/18 06:03 RBC 4.07 10^6 /uL (4.18-5.48) L 12/25/18 06:03 Hgb 13.0 g/dL (14.0-18.0) L 12/25/18 06:03 Hct 40 % (42-52) L 12/25/18 06:03 MCV 99 fL (80-94) H 12/25/18 06:03 MCH 32 pg (27-31) H 12/25/18 06:03 MCHC 32 g/dL (31-36) 12/25/18 06:03 RDW 14 % (10-15) 12/25/18 06:03 Plt Count 258 10^3/uL (150-450) 12/25/18 06:03 MPV 10.0 fL (7.4-10.4) 12/25/18 06:03 Neut % (Auto) 51.2 % 12/25/18 06:03 Lymph % (Auto) 37.4 % 12/25/18 06:03 Lee % (Auto) 9.6 % 12/25/18 06:03 Eos % (Auto) 1.3 % 12/25/18 06:03 Baso % (Auto) 0.5 % 12/25/18 06:03 Absolute Neuts (auto) 6.0 10^3/ul (1.5-7.7) 12/25/18 06:03 Absolute Lymphs (auto) 4.4 10^3/ul (1.0-4.8) 12/25/18 06:03 Absolute Monos (auto) 1.1 10^3/ul (0-0.8) H 12/25/18 06:03 Absolute Eos (auto) 0.2 10^3/ul (0-0.6) 12/25/18 06:03 Absolute Basos (auto) 0.1 10^3/ul (0-0.2) 12/25/18 06:03 Absolute Nucleated RBC 0.0 10^3/ul 12/25/18 06:03 Immature Gran % 4.0 % (0-9) 12/18/18 05:21 Neutrophils % 70.0 % 12/18/18 05:21 Band Neutrophils % 4.0 % (0-8) 12/18/18 05:21 Lymphocytes % 18.0 % 12/18/18 05:21 Reactive Lymphs % 1.0 % (0-6) 12/18/18 05:21 Monocytes % 7.0 % 12/18/18 05:21 Nucleated RBC % 0.2 12/25/18 06:03 Normal RBC Morphology Normal (Normal) 12/18/18 05:21 INR (Anticoag Therapy) 1.36 (0.82-1.09) H 12/20/18 05:23 Patient Temperature 98.3 12/21/18 06:27 ABG pH 7.43 (7.35-7.45) 12/21/18 06:27 ABG pH (Temp Correct) Not Reportable 12/21/18 06:27 ABG pCO2 39 mmHg (35-45) 12/21/18 06:27 ABG pCO2 (Temp Corrct Not Reportable 12/21/18 06:27 ABG pO2 98 mmHg (80-100) 12/21/18 06:27 ABG pO2 (Temp Correct Not Reportable 12/21/18 06:27 ABG HCO3 26.1 mmol/L (19-31) 12/21/18 06:27 ABG O2 Saturation 98.6 % (94.0-98.0) H 12/21/18 06:27 ABG Base Excess 1.5 mmol/L (-2.0-2.0) 12/21/18 06:27 Respiration Rate 15 12/21/18 06:27 O2 Delivery Device ventilator 12/21/18 06:27 Ventilator Type 400 12/21/18 06:27 Vent Mode cmv 12/21/18 06:27 FiO2 40 12/21/18 06:27 Inspiratory Time Not Reportable 12/21/18 06:27 PEEP 5 12/21/18 06:27 Pressure Support Not Reportable 12/21/18 06:27 Pressure Control Not Reportable 12/21/18 06:27 EPAP Not Reportable 12/21/18 06:27 IPAP Not Reportable 12/21/18 06:27 BiPAP Not Reportable 12/21/18 06:27 Sodium 136 mmol/L (135-145) 12/25/18 06:03 Potassium 3.7 mmol/L (3.5-5.0) 12/25/18 09:40 Chloride 106 mmol/L (101-111) 12/25/18 06:03 Carbon Dioxide 22 mmol/L (22-32) 12/25/18 06:03 Anion Gap 8 mmol/L (2-11) 12/25/18 06:03 BUN 12 mg/dL (6-24) 12/25/18 06:03 Creatinine 0.80 mg/dL (0.67-1.17) 12/25/18 06:03 Est GFR ( Amer) 110.9 (>60) 12/25/18 06:03 Est GFR (Non-Af Amer) 91.7 (>60) 12/25/18 06:03 BUN/Creatinine Ratio 15.0 (8-20) 12/25/18 06:03 Glucose 107 mg/dL (70-100) H 12/25/18 06:03 Lactic Acid 1.1 mmol/L (0.5-2.0) 12/19/18 04:25 Calcium 8.0 mg/dL (8.6-10.3) L 12/25/18 06:03 Magnesium 1.9 mg/dL (1.9-2.7) 12/23/18 05:33 Total Bilirubin 1.70 mg/dL (0.2-1.0) H 12/22/18 04:00 AST 56 U/L (13-39) H 12/22/18 04:00 ALT 29 U/L (7-52) 12/22/18 04:00 Alkaline Phosphatase 134 U/L (34-104) H 12/22/18 04:00 Lactate Dehydrogenase 204 U/L (140-271) 12/19/18 17:43 Troponin I 0.03 ng/mL (<0.04) 12/16/18 08:16 B-Natriuretic Peptide 432 pg/mL (<=100) H 12/19/18 04:25 Total Protein 4.9 g/dL (6.4-8.9) L 12/22/18 04:00 Total Protein (PEP) 5.5 g/dL (6.3 - 7.9) L 12/19/18 17:43 Albumin 2.9 g/dL (3.2-5.2) L 12/22/18 04:00 Albumin (PEP) 2.7 g/dL (3.4-4.7) L 12/19/18 17:43 Globulin 2.0 g/dL (2-4) 12/22/18 04:00 Albumin/Globulin Ratio 1.5 (1-3) 12/22/18 04:00 Albumin/Globulin (PEP) 0.98 12/19/18 17:43 Padct-4-Fdrftiung 0.4 g/dL (0.1-0.3) H 12/19/18 17:43 [place]-0-Wkrxdtmhz 0.9 g/dL (0.6-1.0) 12/19/18 17:43 Khrz-6-Wdgoenxk 0.9 g/dL (0.7-1.2) 12/19/18 17:43 Sluv-6-Emtihihdfgzwl 2.86 mcg/mL H 12/19/18 17:43 Gamma Globulins 0.6 g/dL (0.6-1.6) 12/19/18 17:43 PEP Impression See comment 12/19/18 17:43 Lipase 50 U/L (11.0-82.0) 12/16/18 01:40 Urine Color Yellow 12/16/18 06:07 Urine Appearance Clear 12/16/18 06:07 Urine pH 5.0 (5-9) 12/16/18 06:07 Ur Specific [place] > 1.060 (1.010-1.030) H 12/16/18 06:07 Urine Protein Negative (Negative) 12/16/18 06:07 Urine Ketones Trace (Negative) A 12/16/18 06:07 Urine Blood 2+ (Negative) A 12/16/18 06:07 Urine Nitrate Negative (Negative) 12/16/18 06:07 Urine Bilirubin Negative (Negative) 12/16/18 06:07 Urine Urobilinogen Negative (Negative) 12/16/18 06:07 Ur Leukocyte Esterase Negative (Negative) 12/16/18 06:07 Urine WBC (Auto) Absent (Absent) 12/16/18 06:07 Urine RBC (Auto) 3+(>10/hpf) (Absent) A 12/16/18 06:07 Urine Bacteria Absent (Absent) 12/16/18 06:07 Urine Glucose Negative (Negative) 12/16/18 06:07 Flow Intrp 2-8 Markers TNP 12/20/18 16:30 Flow Intrp 9-15 Marker 12/20/18 16:30 Flow Intrp 16+ Markers TNP 12/20/18 16:30 incisions ok abdomen soft Assessment: [] stable Plan: []await full return bowel fxn
[2018-12-25] MEDS: D5W 1/2 NS 1000 ML BAG* 1,000 ML IV SCH (13:30)
[2018-12-25] MEDS: Enoxaparin(*) 40 MG/0.4 ML SYR SUBCUT SCH (21:12)
[2018-12-26] MEDS: Morphine INJ* 2 MG/ML 1 ML SYRINGE (TWO MG - NEW SYRINGE VERSION) IV PRN ×2 (02:45→10:48)
[2018-12-26 06:19] LABS: Hematocrit 38 % (42-52); Mean Corpuscular HGB Conc 34 g/dL (31-36); Mean Corpuscular Hemoglobin 32 pg (27-31); Mean Corpuscular Volume 94 fL (80-94); Mean Platelet Volume 10.1 fL (7.4-10.4); Platelet Count 302 10^3/uL (150-450); Red Blood Count 4.04 10^6 /uL (4.18-5.48); Red Cell Distribution Width 13 % (10-15); White Blood Count 14.5 10^3/uL (3.5-10.8)
[2018-12-26 06:24] LABS: Calcium 7.9 mg/dL (8.6-10.3); Potassium 3.9 mmol/L (3.5-5.0)
[2018-12-26 06:26] LABS: ABS Basophils 0.1 10^3/ul (0-0.2); ABS Eosinophils 0.2 10^3/ul (0-0.6); ABS Lymphocytes 5.6 10^3/ul (1.0-4.8); ABS Monocytes 1.4 10^3/ul (0-0.8); ABS Neutrophils 7.1 10^3/ul (1.5-7.7)
[2018-12-26 06:30] LABS: BUN/Creatinine Ratio 15.1 (8-20); EGFR Non-African American 84.3 (>60)
[2018-12-26 06:53] LABS: Eosinophil % 1.5 %; Lymphocyte % 38.9 %; Nucleated Red Blood Cells % 0.2
--- NOTE | 2018-12-26 07:20 | PN ---
Subjective Date of Service: 12/26/18 Interval History: Tolerated clears yesterday but didn't want to "push it". No overnight events. Advancing diet today. Still with gas but no BM. Will start to transition to oral meds. Objective Active Medications: Acetaminophen (Tylenol Tab*) 975 mg PO Q8H PRN PRN Reason: Pain - Mild to Moderate Enoxaparin Sodium (Lovenox(*)) 40 mg SUBCUT BEDTIME [facility] Last Admin: 12/25/18 21:12 Dose: 40 mg Famotidine (Pepcid Tab*) 20 mg PO BID PRN PRN Reason: HEARTBURN Fluoxetine HCl (Prozac Cap*) 20 mg PO DAILY [facility] Lorazepam (Ativan Tab(*)) 1 mg PO BEDTIME [facility] Magnesium Hydroxide (Milk Of Magnesia Liq*) 30 ml PO Q6H PRN PRN Reason: CONSTIPATION Miscellaneous (Ativan Pyxis Mejia) 1 ea N/A .ATIVAN IV MEJIA PRN PRN Reason: PYXIS MEJIA Morphine Sulfate (Morphine Inj (Syringe))*) 2 mg IV Q6H PRN PRN Reason: PAIN - SEVERE Ondansetron HCl (Zofran Inj*) 4 mg IV Q4H PRN PRN Reason: NAUSEA/VOMITING Last Admin: 12/26/18 09:13 Dose: 4 mg Tamsulosin HCl (Flomax Cap*) 0.4 mg PO BEDTIME [facility] Vital Signs - 8 hr 12/25/18 12/26/18 12/26/18 23:39 00:00 02:45 Temperature 98.7 F Pulse Rate 91 Respiratory 16 17 Rate Blood Pressure 167/77 (mmHg) O2 Sat by Pulse 95 95 Oximetry 12/26/18 12/26/18 03:32 03:45 Temperature 98.9 F Pulse Rate 82 Respiratory 16 16 Rate Blood Pressure 125/86 (mmHg) O2 Sat by Pulse 93 Oximetry Oxygen Devices in Use Now: None Appearance: frail appearing man in NAD, sitting eating breakfast of full liquid Eyes: No Scleral Icterus Ears/Nose/Mouth/Throat: Clear Oropharnyx, Mucous Membranes Moist Neck: NL Appearance and Movements; NL JVP Respiratory: Symmetrical Chest Expansion and Respiratory Effort, Clear to Auscultation Cardiovascular: NL Sounds; No Murmurs; No JVD, RRR Abdominal: - - surgical site c/d/i; no tenderness, no guarding/rebound, normoactive BS Extremities: No Edema Skin: No Rash or Ulcers Neurological: Alert and Oriented x 3 - Nutrition: Malnutrition Diagnosis/Plan Malnutrition Assessment by Registered Dietitian: Malnutrition Assessment Clinical Characteristics Acute,Moderate Malnutrition Assessment: - NPO x 8 days, so <75% of energy needs met for Criteria > 7 days - mild temporal wasting noted per visual assessment Malnutrition Assessment: 1. slowly progress diet per Surgery; sips of Interventions clear liquids today 2. replete serum electrolytes as appropriate per providers 3. maintain IVFs for adequate hydration Malnutrition Assessment: Goals 1. adequate intake to support hydration and lean body mass without significant wt change 2. glycemic control within inpatient parameters ; no s/sx hypo-hyperglycemia 3. maintain serum electrolytes WNL 4. regulation of bowel pattern; no c/o constipation (or diarrhea) Result Diagrams: 12/26/18 05:56 12/26/18 05:56 Additional Lab and Data: Microbiology and Other Data: Microbiology 12/16/18 09:40 Stool Occult Blood (GURVINDER) - Final Stool 12/16/18 07:18 Nasal Screen MRSA (PCR) - Final Nasal Mrsa Not Detected Assess/Plan/Problems-Billing Assessment: 88M with HTN, BPH, panic disorder, recently admitted at outside hospital for high grade AVB s/p PPM d/c to rehab facility, readmitted with SBO, found to have incidental diffuse LAD. Course c/b aspiration pneumonitis/PNA (completed course of CTX/metronidazole) with no response in conservative mgmt; s/p exp laparotomy (on 12/20/2018), with post op ileus improving. - Patient Problems (1) Small bowel obstruction Comment: due to adhesion from prior surgery, now s/p exp laparotomy (12/20/2018) - NO BM yet; passing flatus today; bowel sound present - advancing diet as tolerated - space out morphine dosing given ileus, transition meds back to PO (2) Lymphadenopathy Comment: Diagnosed by [facility] lymph node biopy done during ex lap. Path with B cell lymphoma, marginal zone type, low grade - seen byr Dr. Farias; no any intervention at present as it is low grade. (3) Depression with anxiety Comment: - start back on home SSRI - fluoxetine 20mg daily - cont home lorazepam 1mg at bedtime (4) Hypertension Comment: - Oral home meds on hold; BPs at goal (5) Complete heart block Comment: - d/c on 12/14 from PPM being placed at [place], HR paced rolando removed on 12/23/2018 (6) Elevated TSH Comment: - Subclinical hypothyroidism diagnosed at [facility], can be FU outpt (7) Hyperlipidemia Comment: Holding atorvastatin will start oce he tolerates po (8) DVT prophylaxis Comment: On lovenox (9) Full code status Current Visit: Yes Status: Acute Code(s): Z78.9 - OTHER SPECIFIED HEALTH STATUS SNOMED Code(s): 036638642 Comment: - Reconfirmed with patient Status and Disposition: Inpatient. surgery following; oncology following
--- NOTE | 2018-12-26 08:26 | PN ---
Progress Note - Progress Note Date of Service: 12/26/18 SOAP: Subjective: []flatus but no bm, hungry Objective: []soft abdomen, incision ok Temp Pulse Resp BP Pulse Ox 98.1 F 82 16 157/75 95 12/26/18 07:26 12/26/18 07:26 12/26/18 07:27 12/26/18 07:26 12/26/18 07:26 Laboratory Last Values WBC 14.5 10^3/uL (3.5-10.8) H 12/26/18 05:56 RBC 4.04 10^6 /uL (4.18-5.48) L 12/26/18 05:56 Hgb 13.0 g/dL (14.0-18.0) L 12/26/18 05:56 Hct 38 % (42-52) L 12/26/18 05:56 MCV 94 fL (80-94) 12/26/18 05:56 MCH 32 pg (27-31) H 12/26/18 05:56 MCHC 34 g/dL (31-36) 12/26/18 05:56 RDW 13 % (10-15) 12/26/18 05:56 Plt Count 302 10^3/uL (150-450) 12/26/18 05:56 MPV 10.1 fL (7.4-10.4) 12/26/18 05:56 Neut % (Auto) 49.3 % 12/26/18 05:56 Lymph % (Auto) 38.9 % 12/26/18 05:56 Ralls % (Auto) 9.6 % 12/26/18 05:56 Eos % (Auto) 1.5 % 12/26/18 05:56 Baso % (Auto) 0.7 % 12/26/18 05:56 Absolute Neuts (auto) 7.1 10^3/ul (1.5-7.7) 12/26/18 05:56 Absolute Lymphs (auto) 5.6 10^3/ul (1.0-4.8) H 12/26/18 05:56 Absolute Monos (auto) 1.4 10^3/ul (0-0.8) H 12/26/18 05:56 Absolute Eos (auto) 0.2 10^3/ul (0-0.6) 12/26/18 05:56 Absolute Basos (auto) 0.1 10^3/ul (0-0.2) 12/26/18 05:56 Absolute Nucleated RBC 0.0 10^3/ul 12/26/18 05:56 Immature Gran % 4.0 % (0-9) 12/18/18 05:21 Neutrophils % 70.0 % 12/18/18 05:21 Band Neutrophils % 4.0 % (0-8) 12/18/18 05:21 Lymphocytes % 18.0 % 12/18/18 05:21 Reactive Lymphs % 1.0 % (0-6) 12/18/18 05:21 Monocytes % 7.0 % 12/18/18 05:21 Nucleated RBC % 0.2 12/26/18 05:56 Normal RBC Morphology Normal (Normal) 12/18/18 05:21 INR (Anticoag Therapy) 1.36 (0.82-1.09) H 12/20/18 05:23 Patient Temperature 98.3 12/21/18 06:27 ABG pH 7.43 (7.35-7.45) 12/21/18 06:27 ABG pH (Temp Correct) Not Reportable 12/21/18 06:27 ABG pCO2 39 mmHg (35-45) 12/21/18 06:27 ABG pCO2 (Temp Corrct Not Reportable 12/21/18 06:27 ABG pO2 98 mmHg (80-100) 12/21/18 06:27 ABG pO2 (Temp Correct Not Reportable 12/21/18 06:27 ABG HCO3 26.1 mmol/L (19-31) 12/21/18 06:27 ABG O2 Saturation 98.6 % (94.0-98.0) H 12/21/18 06:27 ABG Base Excess 1.5 mmol/L (-2.0-2.0) 12/21/18 06:27 Respiration Rate 15 12/21/18 06:27 O2 Delivery Device ventilator 12/21/18 06:27 Ventilator Type 400 12/21/18 06:27 Vent Mode cmv 12/21/18 06:27 FiO2 40 12/21/18 06:27 Inspiratory Time Not Reportable 12/21/18 06:27 PEEP 5 12/21/18 06:27 Pressure Support Not Reportable 12/21/18 06:27 Pressure Control Not Reportable 12/21/18 06:27 EPAP Not Reportable 12/21/18 06:27 IPAP Not Reportable 12/21/18 06:27 BiPAP Not Reportable 12/21/18 06:27 Sodium 136 mmol/L (135-145) 12/26/18 05:56 Potassium 3.9 mmol/L (3.5-5.0) 12/26/18 05:56 Chloride 105 mmol/L (101-111) 12/26/18 05:56 Carbon Dioxide 28 mmol/L (22-32) 12/26/18 05:56 Anion Gap 3 mmol/L (2-11) 12/26/18 05:56 BUN 13 mg/dL (6-24) 12/26/18 05:56 Creatinine 0.86 mg/dL (0.67-1.17) 12/26/18 05:56 Est GFR ( Amer) 102.0 (>60) 12/26/18 05:56 Est GFR (Non-Af Amer) 84.3 (>60) 12/26/18 05:56 BUN/Creatinine Ratio 15.1 (8-20) 12/26/18 05:56 Glucose 116 mg/dL (70-100) H 12/26/18 05:56 Lactic Acid 1.1 mmol/L (0.5-2.0) 12/19/18 04:25 Calcium 7.9 mg/dL (8.6-10.3) L 12/26/18 05:56 Magnesium 1.9 mg/dL (1.9-2.7) 12/23/18 05:33 Total Bilirubin 1.70 mg/dL (0.2-1.0) H 12/22/18 04:00 AST 56 U/L (13-39) H 12/22/18 04:00 ALT 29 U/L (7-52) 12/22/18 04:00 Alkaline Phosphatase 134 U/L (34-104) H 12/22/18 04:00 Lactate Dehydrogenase 204 U/L (140-271) 12/19/18 17:43 Troponin I 0.03 ng/mL (<0.04) 12/16/18 08:16 B-Natriuretic Peptide 432 pg/mL (<=100) H 12/19/18 04:25 Total Protein 4.9 g/dL (6.4-8.9) L 12/22/18 04:00 Total Protein (PEP) 5.5 g/dL (6.3 - 7.9) L 12/19/18 17:43 Albumin 2.9 g/dL (3.2-5.2) L 12/22/18 04:00 Albumin (PEP) 2.7 g/dL (3.4-4.7) L 12/19/18 17:43 Globulin 2.0 g/dL (2-4) 12/22/18 04:00 Albumin/Globulin Ratio 1.5 (1-3) 12/22/18 04:00 Albumin/Globulin (PEP) 0.98 12/19/18 17:43 Ouqfo-1-Iairtunol 0.4 g/dL (0.1-0.3) H 12/19/18 17:43 Wimhl-3-Urqgbppcd 0.9 g/dL (0.6-1.0) 12/19/18 17:43 Gqae-0-Wzoyvzwi 0.9 g/dL (0.7-1.2) 12/19/18 17:43 Wywq-8-Kmqejoxpxixxk 2.86 mcg/mL H 12/19/18 17:43 Gamma Globulins 0.6 g/dL (0.6-1.6) 12/19/18 17:43 PEP Impression See comment 12/19/18 17:43 Lipase 50 U/L (11.0-82.0) 12/16/18 01:40 Urine Color Yellow 12/16/18 06:07 Urine Appearance Clear 12/16/18 06:07 Urine pH 5.0 (5-9) 12/16/18 06:07 Ur Specific Addison > 1.060 (1.010-1.030) H 12/16/18 06:07 Urine Protein Negative (Negative) 12/16/18 06:07 Urine Ketones Trace (Negative) A 12/16/18 06:07 Urine Blood 2+ (Negative) A 12/16/18 06:07 Urine Nitrate Negative (Negative) 12/16/18 06:07 Urine Bilirubin Negative (Negative) 12/16/18 06:07 Urine Urobilinogen Negative (Negative) 12/16/18 06:07 Ur Leukocyte Esterase Negative (Negative) 12/16/18 06:07 Urine WBC (Auto) Absent (Absent) 12/16/18 06:07 Urine RBC (Auto) 3+(>10/hpf) (Absent) A 12/16/18 06:07 Urine Bacteria Absent (Absent) 12/16/18 06:07 Urine Glucose Negative (Negative) 12/16/18 06:07 Flow Intrp 2-8 Markers TNP 12/20/18 16:30 Flow Intrp 9-15 Marker 12/20/18 16:30 Flow Intrp 16+ Markers TNP 12/20/18 16:30 Assessment: []stable Plan: []advance diet
[2018-12-26] MEDS: Ondansetron INJ* 2 MG/ML VIAL IV PRN (09:13)
[2018-12-26] MEDS: Famotidine IV* 10 MG/ML 2 ML (20 mg) IV SLOW PU SCH (09:13)
[2018-12-26] MEDS: LORazepam INJ* 2 MG/ML 1 ML VIAL IV PUSH PRN (09:26)
[2018-12-26] MEDS: D5W 1/2 NS 1000 ML BAG* 1,000 ML IV SCH (09:28)
[2018-12-26] MEDS ORDERED: Acetaminophen TAB* 325 MG PO PRN (12:28)
[2018-12-26] MEDS ORDERED: Morphine INJ* 2 MG/ML 1 ML SYRINGE (TWO MG - NEW SYRINGE VERSION) IV PRN ×2 (12:28→12:36)
[2018-12-26] MEDS ORDERED: Famotidine TAB* 20 MG PO PRN (12:28)
[2018-12-26] MEDS ORDERED: Magnesium Hydroxide LIQ* 30 ML UDC PO PRN (12:30)
[2018-12-26] MEDS ORDERED: Magnesium Hydroxide LIQ* 30 ML UDC PO ONE (12:31)
[2018-12-26] MEDS: FLUoxetine CAP* 20 MG PO SCH (12:50)
[2018-12-26] MEDS: Tamsulosin CAP* 0.4 MG PO SCH (20:02)
[2018-12-26] MEDS: Acetaminophen TAB* 325 MG PO PRN (20:02)
[2018-12-26] MEDS: LORazepam TAB(*) 1 MG PO SCH (20:02)
[2018-12-26] MEDS: Enoxaparin(*) 40 MG/0.4 ML SYR SUBCUT SCH (20:03)
--- NOTE | 2018-12-26 22:35 | CONS ---
MEDICAL ONCOLOGY CONSULTATION NOTE: DATE OF CONSULT: 12/24/18 REASON FOR CONSULT: New diagnosis of marginal zone lymphoma. HISTORY OF PRESENT ILLNESS: Mr. Uriostegui is an 88-year-old male who reports that his weight has been decreasing by about 6 to 8 pounds over the past year intentionally, as he has been trying to improve situation with his diabetes. His appetite has been good and he has had no abdominal pain until recently. He moved to [place] about 3 years ago from [place] to help care for a friend , who is receiving lymphoma treatment at [facility] in [place], [place]. He reports being in good health until approximately 10 days prior to admission when he developed episodes of being vertiginous worse on standing. He had no associated shortness of breath or chest pain. He was [facility] [place], [place] where he was found to be bradycardic in the 30s. He also was hypoxic. He was sent to [facility], where a pacemaker was placed and he was discharged to [facility] for rehab. The day following arrival at [facility], he developed increasing abdominal pain along with nausea and vomiting. He presented to [facility]. He was found to have on abdominal CT small bowel obstruction. Initially, he was treated with conservative management without improvement. He subsequently was consulted by Surgery and underwent CT scan of the abdomen and pelvis on 12/16/[address] of the chest on 12/18/18. At Surgery, his small bowel obstruction was able to be relieved. He was found to have even preoperatively mesenteric adenopathy as described below. The small bowel obstruction appeared to be due to adhesions from prior surgery and not related to the mesenteric adenopathy. He has slowly been recovering from surgery. CT of the abdomen and pelvis on 12/16/18 revealed prominent mesenteric lymph nodes adjacent to the abdominal aorta in the inferior vena cava, which are pathologically enlarged. In addition there are abnormal lymph nodes in the retrocrural region. On CT of the chest, adenopathy was noted in both the mediastinum and the axilla bilaterally. 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 The CD20 positive, CD79a positive, BCL2 positive and PAX5 positive. It is negative for CD10, MUM-1, cyclin D1 and BCL6. PAST MEDICAL HISTORY: Otherwise significant for hypertension, diabetes mellitus , status post appendectomy in the 1960s, history of tuberculosis as a child, BPH , history of panic disorder. MEDICATIONS PRIOR TO ADMISSION: Include: 1. Aspirin 81 mg daily. 2. Atorvastatin 40 mg daily. 3. Amlodipine 10 mg daily. 4. Lisinopril 40 mg daily. 5. Fluoxetine 20 mg daily. 6. Lorazepam 1 mg at h.s. 7. Tamsulosin 0.4 mg daily. 8. Finasteride 5 mg daily. 9. Oxybutynin 5 mg daily. ALLERGIES: To PENICILLIN causing rash as a child. FAMILY HISTORY: Noncontributory. No known family history of malignancies. SOCIAL HISTORY: The patient moved from [place] to [place] about 3 years ago. He still has his primary care physician in [place] and returns there fairly frequently both to visit family and [facility]. Retired call center assistant. No cigarettes. Occasional alcohol. REVIEW OF SYSTEMS: Energy level has been good until the past couple of weeks. Weight loss moderate. No significant GI or complaints of note until the past couple of weeks. Shortness of breath and cardiopulmonary issues as discussed above. No major arthritic complaints. PHYSICAL EXAMINATION: An 88-year-old male sitting comfortably in a chair in the hospital room, in no acute distress. Vital signs are stable. HEENT: PERRL , EOMI. No erythema or exudates. Lungs: Clear. Heart: Regular rate and rhythm. Occasional extrasystole. No murmur, rub, or gallop. Abdomen: Midline scar is dressed. Active bowel sounds. No guarding or rebound. Mild tenderness in the right lower quadrant. Extremities: No edema. The patient has bilateral axillary lymph nodes to about 2 cm, some very mild shotty supraclavicular adenopathy. No cervical lymphadenopathy and no inguinal adenopathy. DIAGNOSTIC STUDIES/LAB DATA: Include CBC with preop hemoglobin of 12.9 and currently 12.9. White count on admission was 10.7 and currently 13.7. Platelet count is normal. Differential without significant findings. IMPRESSION: An 88-year-old male with 2-weeks in hospitalization for his bradycardia and status post pacemaker within the last couple of weeks and now admission for a small bowel obstruction related to previous abdominal surgery. Although, he has significant adenopathy on multiple locations including mesenteric, retrocrural, axillary and mediastinal, this does not appear in any way to be related to his current symptoms or to his need for recent surgery. He has a low grade B-cell lymphoma, marginal zone type. At the present time, this is not causing any symptoms. This is not causing cytopenia and did not lead in any way to his needing surgery. This disease should be followed. Even if you are of a much younger age, it would not be in need of any therapy at the present time. He also states he does not wish to get therapy for that at the age of 88. I would recommend that he continued to be followed in terms of his adenopathy by primary care. I have advised him he should have a primary care closer to where he is currently living, although he continues to see primary care at [facility] [place]. Currently, he could receive care through [facility] closer to home. At his request, no follow up is scheduled through our office. [facility] and will be observed and not treated at this time. [id number]/CPS #: [id number] LEXIE
[2018-12-27] MEDS: Acetaminophen TAB* 325 MG PO PRN ×3 (03:55→23:49)
[2018-12-27 05:07] LABS: Hematocrit 36 % (42-52); Hemoglobin 12.1 g/dL (14.0-18.0); Mean Corpuscular HGB Conc 34 g/dL (31-36); Mean Corpuscular Hemoglobin 32 pg (27-31); Mean Corpuscular Volume 94 fL (80-94); Platelet Count 264 10^3/uL (150-450); Red Cell Distribution Width 13 % (10-15); White Blood Count 11.1 10^3/uL (3.5-10.8)
[2018-12-27 05:25] LABS: BUN/Creatinine Ratio 15.7 (8-20); Calcium 7.6 mg/dL (8.6-10.3); EGFR African American 106.3 (>60); EGFR Non-African American 87.8 (>60); Magnesium 1.8 mg/dL (1.9-2.7); Potassium 3.7 mmol/L (3.5-5.0)
[2018-12-27] MEDS ORDERED: LORazepam TAB(*) 1 MG PO ONE (07:41)
[2018-12-27] MEDS ORDERED: LORazepam TAB(*) 1 MG ONE (07:45)
[2018-12-27] MEDS: FLUoxetine CAP* 20 MG PO SCH (07:46)
[2018-12-27] MEDS ORDERED: Lorazepam PYXIS KEY ONE (08:33)
--- NOTE | 2018-12-27 08:58 | PN ---
Progress Note - Progress Note Date of Service: 12/27/18 SOAP: Subjective: Doing well-tolerating fulls 2 BM's yesterday, passing flatus Objective: Temp Pulse Resp BP Pulse Ox 98.9 F 87 18 149/73 98 12/27/18 07:18 12/27/18 07:18 12/27/18 07:46 12/27/18 07:18 12/27/18 07:18 Intake & Output 12/25/18 12/26/18 12/27/18 12/28/18 06:59 06:59 06:59 06:59 Intake Total 740 1994 2306 Output Total 0 100 0 Balance 740 1894 2306 Intake: IV Fluids 984 996 D5W 1/2 NS 984 996 Oral 740 1010 1310 Output: Urine 0 100 0 Other: Estimated Void Large Large Large Date of Last Bowel 12/27/18 Movement # Bowel Movements 0 Estimated Stool Amount Small # Voids 2 2 1 PEX: Comfortable, awake and alert Abd is soft and slightly distended. Bowel sounds present, slightly hyperactive, somewhat high pitched Incision is CDI Laboratory Results - last 24 hr 12/27/18 12/27/18 04:48 04:48 WBC 11.1 H RBC 3.80 L Hgb 12.1 L Hct 36 L MCV 94 MCH 32 H MCHC 34 RDW 13 Plt Count 264 MPV 10.0 Sodium 137 Potassium 3.7 Chloride 106 Carbon Dioxide 27 Anion Gap 4 BUN 13 Creatinine 0.83 Est GFR ( Amer) 106.3 Est GFR (Non-Af Amer) 87.8 BUN/Creatinine Ratio 15.7 Glucose 121 H Calcium 7.6 L Phosphorus 2.0 L Magnesium 1.8 L Assessment: S/P exlap lysis of adhesions, SBO Ileus-resolving Plan: Advance diet to soft Increase activity OK for discharge from surgical standpoint in the next 24-48 hrs. D/C planning-? rehab
[2018-12-27] MEDS: amLODIPine TAB* 5 MG PO SCH (15:01)
--- NOTE | 2018-12-27 15:15 | PN ---
Subjective Date of Service: 12/27/18 Interval History: Pt is feeling tired and sleepy today. Mild abdominal pain, passing large amount of stool yesterday, tolerating soft diet. No cough, no SOB. Pt felt anxious and requested for ativan twice today despite no object symptoms I can see. Objective Active Medications: Acetaminophen (Tylenol Tab*) 975 mg PO Q8H PRN PRN Reason: Pain - Mild to Moderate Last Admin: 12/27/18 15:00 Dose: 975 mg Amlodipine Besylate (Norvasc Tab*) 10 mg PO DAILY [facility] Last Admin: 12/27/18 15:01 Dose: 10 mg Atorvastatin Calcium (Lipitor*) 40 mg PO 1700 VANDANA Enoxaparin Sodium (Lovenox(*)) 40 mg SUBCUT BEDTIME [facility] Last Admin: 12/26/18 20:03 Dose: 40 mg Famotidine (Pepcid Tab*) 20 mg PO BID PRN PRN Reason: HEARTBURN Fluoxetine HCl (Prozac Cap*) 20 mg PO DAILY [facility] Last Admin: 12/27/18 07:46 Dose: 20 mg Lorazepam (Ativan Tab(*)) 1 mg PO BEDTIME [facility] Last Admin: 12/26/18 20:02 Dose: 1 mg Magnesium Hydroxide (Milk Of Magnesia Liq*) 30 ml PO Q6H PRN PRN Reason: CONSTIPATION Miscellaneous (Ativan Pyxis Cash) 1 ea N/A .ATIVAN IV CASH PRN PRN Reason: PYXIS CASH Tamsulosin HCl (Flomax Cap*) 0.4 mg PO BEDTIME [facility] Last Admin: 12/26/18 20:02 Dose: 0.4 mg Vital Signs - 8 hr 12/27/18 12/27/18 12/27/18 07:18 07:46 08:00 Temperature 98.9 F Pulse Rate 87 Respiratory 16 18 18 Rate Blood Pressure 149/73 (mmHg) O2 Sat by Pulse 98 98 Oximetry 12/27/18 12/27/18 10:16 12:05 Temperature 98.1 F Pulse Rate 82 Respiratory 18 18 Rate Blood Pressure 147/71 (mmHg) O2 Sat by Pulse 97 Oximetry Oxygen Devices in Use Now: None Exam: General - NAD, sitting up in chair. Eyes - PERRLA, EOM intact HEENT- no abnormality Lymph Nodes - No lymphadenopathy Cardiovascular - RRR no m/r/g, no JVD, no carotid bruits Lungs - bibsal crepitation to auscltation, no use of acessory muscles, no crackles or wheezes. Skin - No rashes, skin warm and dry, no erythematous areas Abdomen - Normal bowel sounds, abdomen soft and mild tenderness. Extremities - No edema, cyanosis or clubbing Musculo Skeletal - 5/5 strength, normal range of motion, no swollen or erythematous joints. Neurological Alert and oriented x 3, CN 2-12 grossly intact. Psychiatry- anxious, not depressed. - Nutrition: Malnutrition Diagnosis/Plan Malnutrition Assessment by Registered Dietitian: Malnutrition Assessment Clinical Characteristics Acute,Moderate Malnutrition Assessment: - NPO x 8 days, so <75% of energy needs met for Criteria > 7 days - mild temporal wasting noted per visual assessment Malnutrition Assessment: 1. slowly progress diet per Surgery; sips of Interventions clear liquids today 2. replete serum electrolytes as appropriate per providers 3. maintain IVFs for adequate hydration Malnutrition Assessment: Goals 1. adequate intake to support hydration and lean body mass without significant wt change 2. glycemic control within inpatient parameters ; no s/sx hypo-hyperglycemia 3. maintain serum electrolytes WNL 4. regulation of bowel pattern; no c/o constipation (or diarrhea) Result Diagrams: 12/27/18 04:48 12/27/18 04:48 Additional Lab and Data: Microbiology and Other Data: Microbiology 12/16/18 09:40 Stool Occult Blood (GURVINDER) - Final Stool 12/16/18 07:18 Nasal Screen MRSA (PCR) - Final Nasal Mrsa Not Detected Assess/Plan/Problems-Billing Assessment: 88M with HTN, BPH, panic disorder, recently admitted at outside hospital for high grade AVB s/p PPM d/c to rehab facility, readmitted with SBO, found to have incidental diffuse LAD which was confirmed as marginal zone lymphoma. Course c/b aspiration pneumonitis/PNA (completed course of CTX/metronidazole) with no response in conservative mgmt; s/p exp laparotomy (on 12/20/2018), with post op ileus improving. - Patient Problems (1) Small bowel obstruction Current Visit: Yes Status: Acute Code(s): K56.609 - UNSP INTESTNL OBST, UNSP TO PARTIAL VERSUS COMPLETE OBST SNOMED Code(s): 652040927 Comment: due to adhesion from prior surgery, now s/p exp laparotomy (2018) - BM yesterday; bowel sound present - advancing diet as tolerated - off morphine today, continue oral tylenol (2) Marginal zone B-cell lymphoma Current Visit: Yes Status: Acute Code(s): C85.80 - OTH TYPES OF NON-HODGKIN LYMPHOMA, UNSPECIFIED SITE SNOMED Code(s): 112267167 Comment: - Diagnosed by mesenteric lymph node biopsy during lap, path with B cell lymphoma,marginal zone type, low grade, - consulted oncologist Dr. Farias, follow up with primary care through [facility]. (3) Complete heart block Current Visit: Yes Status: Acute Code(s): I44.2 - ATRIOVENTRICULAR BLOCK, COMPLETE SNOMED Code(s): 61052851 Comment: - d/c on 12/14 from PPM being placed at [facility], HR paced rolando removed on 12/23/2018 (4) Depression with anxiety Current Visit: Yes Status: Acute Code(s): F41.8 - OTHER SPECIFIED ANXIETY DISORDERS SNOMED Code(s): 349829149 Comment: - start back on home SSRI - fluoxetine 20mg daily - cont home lorazepam 1mg at bedtime (5) Elevated TSH Current Visit: Yes Status: Acute Code(s): R79.89 - OTHER SPECIFIED ABNORMAL FINDINGS OF BLOOD CHEMISTRY SNOMED Code(s): 430883153 Comment: - Subclinical hypothyroidism diagnosed at [facility], can be FU outpt (6) Full code status Current Visit: Yes Status: Acute Code(s): Z78.9 - OTHER SPECIFIED HEALTH STATUS SNOMED Code(s): 967115247 Comment: - Reconfirmed with patient (7) Hyperlipidemia Current Visit: Yes Status: Acute Code(s): E78.5 - HYPERLIPIDEMIA, UNSPECIFIED SNOMED Code(s): 05863858 Comment: Holding atorvastatin will start oce he tolerates po (8) Hypertension Current Visit: Yes Status: Acute Code(s): I10 - ESSENTIAL (PRIMARY) HYPERTENSION SNOMED Code(s): 20727833 Comment: - restart amlodipine 10mg daily which is his old med. continue to hold lisinopril. (9) DVT prophylaxis Current Visit: Yes Status: Acute Code(s): Z29.9 - ENCOUNTER FOR PROPHYLACTIC MEASURES, UNSPECIFIED SNOMED Code(s): 571537990 Comment: On lovenox Status and Disposition: Inpatient, back to [facility] [place] tomorrow. Attestation Documenting Resident: Aruna Xavier Supervising Physician: Ingrid Mortensen Attestation: This service has been performed in part by a resident under the direction of a teaching physician.I, Ingrid Mortensen, performed the service, or was physically present during the critical, or cash portions of the service, furnished by the resident. I participated in the management of the patient.
[2018-12-27] MEDS ORDERED: Atorvastatin* 40 MG TAB PO SCH (17:00)
[2018-12-27] MEDS: LORazepam TAB(*) 1 MG PO SCH (20:27)
[2018-12-27] MEDS: Tamsulosin CAP* 0.4 MG PO SCH (20:27)
[2018-12-27] MEDS: Enoxaparin(*) 40 MG/0.4 ML SYR SUBCUT SCH (20:28)
[2018-12-27] MEDS ORDERED: Benzonatate CAP* 100 MG PO ONE (23:26)
[2018-12-28] MEDS ORDERED: Acetaminophen TAB* 325 MG PO PRN (05:53)
[2018-12-28] MEDS: FLUoxetine CAP* 20 MG PO SCH (08:39)
[2018-12-28] MEDS: amLODIPine TAB* 5 MG PO SCH (08:39)
[2018-12-28 11:20] VITALS: BP 136/63
--- NOTE | 2018-12-28 11:49 | PN ---
Progress Note - Progress Note Date of Service: 12/28/18 SOAP: Subjective: Comfortable in chair without complaint. tolerating diet. no complaints of pain [] Objective: [] Temp Pulse Resp BP Pulse Ox 97.5 F 85 16 136/63 95 12/28/18 11:19 12/28/18 11:19 12/28/18 11:19 12/28/18 11:19 12/28/18 11:19 PE: Chest: CTA B/L steris in place Let upper chest Pacemaker site, + eccymosis CVS: RRR Abd: Soft, ND/NT, + BS, dressing C/D/I no errythema, eccymosis EXT: calves soft. non tender Assessment: Stable S/P exlap lysis of adhesions, SBO 12/20, tolerating diet, pain well controlled [] Plan: OK for d/c to rehab from surgical standpoint. F/U in office 01/04 @ 9:30 for post op visit []
--- NOTE | 2018-12-28 15:27 | DS ---
CC: Fax to [facility] in [place], [place], (he does not currently have an established PCP there, but is new to the area and needs to see someone in the [facility]) * DATE OF ADMISSION: 12/16/2018. DATE OF DISCHARGE: 12/28/2018. PRINCIPAL DISCHARGE DIAGNOSES: 1. Small bowel obstruction secondary to adhesions, status post exploratory laparotomy, lysis of adhesions. 2. New diagnosis of B cell lymphoma. 3. Recent complete AV block, status post pacemaker. 4. Aspiration pneumonitis. SECONDARY DIAGNOSES: 1. BPH. 2. Hypertension. 3. Anxiety. MEDICATIONS ON DISCHARGE: 1. Fluoxetine 20 mg daily. 2. Oxybutynin 5 mg daily. 3. Lorazepam 1 mg at bedtime. 4. Lisinopril 40 mg daily. 5. Finasteride 5 mg daily. 6. Atorvastatin 40 mg daily. 7. Amlodipine 10 mg daily. 8. Tamsulosin 0.4 mg daily. PHYSICAL EXAMINATION AT DISCHARGE: General: Alert, elderly man who is in no distress, resting comfortably in bed. Vital Signs: Temperature 97.5 heart rate 85, respiratory rate 16, pulse ox 95 percent on room air, blood pressure 136/63. HEENT: Pupils equal, round and reactive to light. Oral mucosa is moist. Neck: No JVP, no adenopathy. Chest: He is in a regular rate and rhythm , pacer is present on the left chest wall with Steri-Strips intact. Abdomen: His midline laparotomy incision is clean, stapled, and with no drainage or erythema. His abdomen is soft, nontender, nondistended. Extremities: No edema , rashes, or ulcers. HOSPITAL COURSE BY PROBLEM: 1. Small bowel obstruction: He initially presented with abdominal pain, nausea , and vomiting and an abdomen and pelvis CT on admission showed a small bowel obstruction. General Surgery was consulted at the time of admission and recommended an NG tube and watchful waiting after several days without return of bowel function and ongoing pain. Surgery recommended surgical intervention; however, Ghassan and his partner declined and postponed it until December 20 when he agreed to surgery and was taken to the operating room where Dr. Hayes performed an exploratory laparotomy and lysis of adhesions. His postop course was complicated by slow return of bowel function, but by the day of discharge he is tolerating a full diet and moving his bowels without any difficulty. 2. New diagnosis of lymphoma: His admission CT showed diffuse lymphadenopathy in the periaortic and pericaval region and mesenteric regions and inguinal regions. Intraoperatively, a lymph node biopsy was obtained and the results showed B cell lymphoma, marginal zone type, low grade. Dr. Farias was consulted and did not feel this was contributing to his current presentation and recommended outpatient follow- up with himself. This needs to be arranged by [facility] [place]. 3. Recent complete AV block, status post pacemaker: As pacer site was felt healed and he was entirely paced throughout this hospitalization on telemetry. He will need to follow-up with the manager investment banking who implanted the pacemaker in [place]. 4. 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 He does have a residual cough at the time of discharge. His chest x-ray on the day of discharge has no acute pathology. 5. Anxiety: He was continued on p.o. as needed benzo's. I would reconsider this choice in this elderly man, but he has tolerated them here. DISPOSITION: Mr. Uriostegui is being discharged to [facility] on 12/28/2018. This was where he was residing prior to his admission. FOLLOW-UP: He needs follow-up with the [facility] in [place]. He has never established with them, but is new to the area and it is important that this follow-up be arranged. This dictation is to be faxed to them and we have communicated with the [facility] who would not allow us to make an appointment for him, but said once they received the fax, they will call [facility] to make him an appointment. Please follow-up on this if it is not completed by them. Please arrange for a follow-up appointment with Dr. [place] Farias on Oncology. Also, please arrange a follow-up appointment with Cardiology from [place] who implanted Mr. Uriostegui's pacemaker. CONDITION ON DISCHARGE: Stable. [id number]/[facility] #: [id number] MTDD
[2018-12-30 12:04] LABS: BLYM Referral Reason ? MALT ML; BLYM Result Summary Negative
== END 2018-12-28 16:04 | DRG 335 ==
LOC: ED 01:12 → SSU 05:58 → ICU 12-20 17:16 → SSU 12-22 15:39
PROVIDERS: ADMIT Internal Medicine; ATTEND Internal Medicine
PROC: 0D9670Z Drainage of Stomach with Drainage Device, Via Natural or Artificial Opening (ICD-10-PCS; 2018-12-16)
PROC: 07BB0ZX Excision of Mesenteric Lymphatic, Open Approach, Diagnostic (ICD-10-PCS; 2018-12-20)
PROC: 5A1935Z Respiratory Ventilation, Less than 24 Consecutive Hours (ICD-10-PCS; 2018-12-20)
PROC: 0DN80ZZ Release Small Intestine, Open Approach (ICD-10-PCS; principal; 2018-12-20 16:00)
DX: K56.50 Intestinal adhesions [bands], unspecified as to partial versus complete obstruction (principal); J69.0 Pneumonitis due to inhalation of food and vomit; J96.00 Acute respiratory failure, unspecified whether with hypoxia or hypercapnia; I50.32 Chronic diastolic (congestive) heart failure; I44.2 Atrioventricular block, complete; C85.13 Unspecified B-cell lymphoma, intra-abdominal lymph nodes; K46.0 Unspecified abdominal hernia with obstruction, without gangrene; J98.11 Atelectasis; N40.0 Benign prostatic hyperplasia without lower urinary tract symptoms; F41.0 Panic disorder [episodic paroxysmal anxiety]; E78.5 Hyperlipidemia, unspecified; E78.00 Pure hypercholesterolemia, unspecified; I25.10 Atherosclerotic heart disease of native coronary artery without angina pectoris; I11.0 Hypertensive heart disease with heart failure; E03.9 Hypothyroidism, unspecified; E11.9 Type 2 diabetes mellitus without complications; K59.00 Constipation, unspecified; E86.0 Dehydration; M19.90 Unspecified osteoarthritis, unspecified site; D64.9 Anemia, unspecified; K56.7 Ileus, unspecified; F41.8 Other specified anxiety disorders; Z95.0 Presence of cardiac pacemaker; Z86.11 Personal history of tuberculosis; Z88.0 Allergy status to penicillin; Z88.5 Allergy status to narcotic agent; Z88.6 Allergy status to analgesic agent; Z82.49 Family history of ischemic heart disease and other diseases of the circulatory system; Z95.5 Presence of coronary angioplasty implant and graft; Z23 Encounter for immunization
CPT/HCPCS: 36415; 71045; 71260; 74019; 74177; 80048; 80053; 81003; 81015; 82232; 82270; 82803; 83605; 83615; 83690; 83735; 83880; 84100; 84155; 84165; 84484; 85025; 85027; 85610; 87641; 88184; 88185; 88187; 88188; 88189; 88305; 88333; 88341; 88342; 88360; 88377; 90686; 93005; 94002; 94003; 99285; A9270-GY; G8978-GP-CJ; G8978-GP-CK; G8978-GP-CL; G8979-GP-CI; J0330; J0696; J1100; J1644; J1650; J2060; J2250; J2270; J2405; J2704; J3010; J3475; J3480; J3490; Q9967